=== PATIENT | female | born 1980 | race Caucasian/White ===

== ENCOUNTER 2018-05-30 17:05 | Emergency (ER) | payer OTHER ==
[2018-05-30] MEDS ORDERED: SODIUM CHLORIDE 0.9% 1,000 ML IV STA (17:41)
[2018-05-30] MEDS ORDERED: MECLIZINE 12.5 MG TAB PO STA (17:41)
[2018-05-30] MEDS ORDERED: ACETAMINOPHEN TAB 325 MG TAB PO STA (17:41)
--- NOTE | 2018-05-30 17:43 | ED ---
Fever HPI - General Chief Complaint: Fever Stated Complaint: dizziness/sleepy Time Seen by Provider: 05/30/18 17:19 Source: patient, RN notes reviewed Mode of arrival: ambulatory Limitations: no limitations - History of Present Illness Initial Comments: 37-year-old female presents emergency Department chief complaint of fatigue. Patient states over the last few days she's not felt well. She states she is lightheaded, dizzy. Patient is also nauseous a low-grade temp, slight cough and congestion. She has no upper abdominal pain though she complains of mild suprapubic pain and right flank pain. She does have urinary frequency no dysuria no hematuria. Denies any chest pain, neck pain or any current headache. Patient states that she does have chronic anemia and which this is being investigated. She has had a prior hysterectomy secondary to excessive bleeding. Denies any sick contacts. - Related Data Home Medications Medication Instructions Recorded Confirmed Buprenorphine HCl/Naloxone HCl 1 film SL BID 05/30/18 05/30/18 [Suboxone 8 mg-2 mg Sl Film] Methocarbamol [Robaxin] 750 mg PO QID 05/30/18 05/30/18 busPIRone HCl [Buspar] 20 mg PO TID 05/30/18 05/30/18 Allergies Allergy/AdvReac Type Severity Reaction Status Date / Time sumatriptan [From Imitrex] Allergy Swelling Verified 05/30/18 17:49 Review of Systems ROS Statement: Those systems with pertinent positive or pertinent negative responses have been documented in the HPI. ROS Other: All systems not noted in ROS Statement are negative. Past Medical History Additional Past Medical History / Comment(s): anemia 2 blood transfusions bood disorder hep c History of Any Multi-Drug Resistant Organisms: None Reported Past Surgical History: Section, Hysterectomy, Tonsillectomy Past Psychological History: Anxiety, Bipolar Smoking Status: Current every day smoker Past Alcohol Use History: Rare Past Drug Use History: None Reported, Opiates General Exam Limitations: no limitations General appearance: alert, in no apparent distress Head exam: Present: atraumatic, normocephalic, normal inspection Eye exam: Present: normal appearance, PERRL, EOMI. Absent: scleral icterus, conjunctival injection, periorbital swelling ENT exam: Present: mucous membranes moist, TM's normal bilaterally, normal external ear exam. Absent: normal exam, normal oropharynx (Poor dentition) Neck exam: Present: normal inspection, full ROM. Absent: tenderness, meningismus, lymphadenopathy Respiratory exam: Present: normal lung sounds bilaterally. Absent: respiratory distress, wheezes, rales, rhonchi, stridor Cardiovascular Exam: Present: regular rate, normal rhythm, normal heart sounds. Absent: systolic murmur, diastolic murmur, rubs, gallop, clicks GI/Abdominal exam: Present: soft, tenderness (Mild suprapubic), normal bowel sounds. Absent: distended, guarding, rebound, rigid Back exam: Present: CVA tenderness (R). Absent: CVA tenderness (L) Neurological exam: Present: alert, oriented X3, CN II-XII intact Skin exam: Present: warm, dry, intact, normal color. Absent: rash Course Vital Signs 05/30/18 17:13 Temperature 100.3 F H Pulse Rate 95 Respiratory 22 Rate Blood Pressure 133/85 O2 Sat by Pulse 100 Oximetry Medical Decision Making - Medical Decision Making 37-year-old female presented for fatigue, fever. Patient had nonspecific complaints. She did have extensive workup including chest x-ray, urinalysis, lab work, influenza swab. There is no clinical signs of bacterial infection. Patient's was slightly low at 19 though patient states that she feels improved after IV fluids, fever control. Patient will be discharged with a viral infection and she will follow-up tomorrow for recheck and return for any worsening symptoms. - Lab Data Result diagrams: 05/30/18 18:15 05/30/18 18:15 Lab Results 05/30/18 05/30/18 05/30/18 Range/Units 18:15 18:15 18:15 WBC 7.7 (3.8-10.6) k/uL RBC 5.07 (3.80-5.40) m/uL Hgb 13.7 (11.4-16.0) gm/dL Hct 42.3 (34.0-46.0) % MCV 83.5 (80.0-100.0) fL MCH 27.1 (25.0-35.0) pg MCHC 32.5 (31.0-37.0) g/dL RDW 13.3 (11.5-15.5) % Plt Count 329 (150-450) k/uL Neutrophils % 55 % Lymphocytes % 33 % Monocytes % 3 % Eosinophils % 7 % Basophils % 0 % Neutrophils # 4.3 (1.3-7.7) k/uL Lymphocytes # 2.5 (1.0-4.8) k/uL Monocytes # 0.2 (0-1.0) k/uL Eosinophils # 0.6 (0-0.7) k/uL Basophils # 0.0 (0-0.2) k/uL Sodium 140 (137-145) mmol/L Potassium 4.3 (3.5-5.1) mmol/L Chloride 109 H (98-107) mmol/L Carbon Dioxide 19 L (22-30) mmol/L Anion Gap 12 mmol/L BUN 21 H (7-17) mg/dL Creatinine 0.66 (0.52-1.04) mg/dL Est GFR (CKD-EPI)AfAm >90 (>60 ml/min/1.73 sqM) Est GFR (CKD-EPI)NonAf >90 (>60 ml/min/1.73 sqM) Glucose 103 H (74-99) mg/dL Plasma Lactic Acid Anjel (0.7-2.0) mmol/L Calcium 9.8 (8.4-10.2) mg/dL Total Bilirubin 0.6 (0.2-1.3) mg/dL AST 24 (14-36) U/L ALT 20 (9-52) U/L Alkaline Phosphatase 76 (38-126) U/L Troponin I (0.000-0.034) ng/mL Total Protein 8.3 H (6.3-8.2) g/dL Albumin 4.8 (3.5-5.0) g/dL Urine Color Urine Appearance (Clear) Urine pH (5.0-8.0) Ur Specific [place] (1.001-1.035) Urine Protein (Negative) Urine Glucose (UA) (Negative) Urine Ketones (Negative) Urine Blood (Negative) Urine Nitrite (Negative) Urine Bilirubin (Negative) Urine Urobilinogen (<2.0) mg/dL Ur Leukocyte Esterase (Negative) Heterophile Antibody Negative (Negative) Influenza Type A RNA (Not Detectd) Influenza Type B (PCR) (Not Detectd) 05/30/18 05/30/18 05/30/18 Range/Units 18:15 18:15 18:15 WBC (3.8-10.6) k/uL RBC (3.80-5.40) m/uL Hgb (11.4-16.0) gm/dL Hct (34.0-46.0) % MCV (80.0-100.0) fL MCH (25.0-35.0) pg MCHC (31.0-37.0) g/dL RDW (11.5-15.5) % Plt Count (150-450) k/uL Neutrophils % % Lymphocytes % % Monocytes % % Eosinophils % % Basophils % % Neutrophils # (1.3-7.7) k/uL Lymphocytes # (1.0-4.8) k/uL Monocytes # (0-1.0) k/uL Eosinophils # (0-0.7) k/uL Basophils # (0-0.2) k/uL Sodium (137-145) mmol/L Potassium (3.5-5.1) mmol/L Chloride (98-107) mmol/L Carbon Dioxide (22-30) mmol/L Anion Gap mmol/L BUN (7-17) mg/dL Creatinine (0.52-1.04) mg/dL Est GFR (CKD-EPI)AfAm (>60 ml/min/1.73 sqM) Est GFR (CKD-EPI)NonAf (>60 ml/min/1.73 sqM) Glucose (74-99) mg/dL Plasma Lactic Acid Anjel 1.3 (0.7-2.0) mmol/L Calcium (8.4-10.2) mg/dL Total Bilirubin (0.2-1.3) mg/dL AST (14-36) U/L ALT (9-52) U/L Alkaline Phosphatase (38-126) U/L Troponin I <0.012 (0.000-0.034) ng/mL Total Protein (6.3-8.2) g/dL Albumin (3.5-5.0) g/dL Urine Color Urine Appearance (Clear) Urine pH (5.0-8.0) Ur Specific [place] (1.001-1.035) Urine Protein (Negative) Urine Glucose (UA) (Negative) Urine Ketones (Negative) Urine Blood (Negative) Urine Nitrite (Negative) Urine Bilirubin (Negative) Urine Urobilinogen (<2.0) mg/dL Ur Leukocyte Esterase (Negative) Heterophile Antibody (Negative) Influenza Type A RNA Not Detected (Not Detectd) Influenza Type B (PCR) Not Detected (Not Detectd) 05/30/18 Range/Units 18:15 WBC (3.8-10.6) k/uL RBC (3.80-5.40) m/uL Hgb (11.4-16.0) gm/dL Hct (34.0-46.0) % MCV (80.0-100.0) fL MCH (25.0-35.0) pg MCHC (31.0-37.0) g/dL RDW (11.5-15.5) % Plt Count (150-450) k/uL Neutrophils % % Lymphocytes % % Monocytes % % Eosinophils % % Basophils % % Neutrophils # (1.3-7.7) k/uL Lymphocytes # (1.0-4.8) k/uL Monocytes # (0-1.0) k/uL Eosinophils # (0-0.7) k/uL Basophils # (0-0.2) k/uL Sodium (137-145) mmol/L Potassium (3.5-5.1) mmol/L Chloride (98-107) mmol/L Carbon Dioxide (22-30) mmol/L Anion Gap mmol/L BUN (7-17) mg/dL Creatinine (0.52-1.04) mg/dL Est GFR (CKD-EPI)AfAm (>60 ml/min/1.73 sqM) Est GFR (CKD-EPI)NonAf (>60 ml/min/1.73 sqM) Glucose (74-99) mg/dL Plasma Lactic Acid Anjel (0.7-2.0) mmol/L Calcium (8.4-10.2) mg/dL Total Bilirubin (0.2-1.3) mg/dL AST (14-36) U/L ALT (9-52) U/L Alkaline Phosphatase (38-126) U/L Troponin I (0.000-0.034) ng/mL Total Protein (6.3-8.2) g/dL Albumin (3.5-5.0) g/dL Urine Color Yellow Urine Appearance Clear (Clear) Urine pH 5.5 (5.0-8.0) Ur Specific [place] 1.033 (1.001-1.035) Urine Protein Negative (Negative) Urine Glucose (UA) Negative (Negative) Urine Ketones Negative (Negative) Urine Blood Negative (Negative) Urine Nitrite Negative (Negative) Urine Bilirubin Negative (Negative) Urine Urobilinogen <2.0 (<2.0) mg/dL Ur Leukocyte Esterase Negative (Negative) Heterophile Antibody (Negative) Influenza Type A RNA (Not Detectd) Influenza Type B (PCR) (Not Detectd) 05/30/18 19:39 EKG performed at 18:20 normal sinus rhythm with rate of 76 ME 148 QRS 80 QT/QTC 384/432 Disposition Clinical Impression: Viral syndrome Disposition: HOME SELF-CARE Condition: Stable Instructions: Fever in Adults (ED), Viral Syndrome (ED) Additional Instructions: Please return to the Emergency Department if symptoms worsen or any other concerns. Is patient prescribed a controlled substance at d/c from ED?: No Referrals: Chris Tompkins MD [Primary Care Provider] - 1-2 days Time of Disposition: 19:41
[2018-05-30 18:36] LABS: Basophils % (A) 0 %; Eosinophils # (A) 0.6 k/uL (0-0.7); Eosinophils % (A) 7 %; HCT 42.3 % (34.0-46.0); HGB 13.7 gm/dL (11.4-16.0); Lymphocytes # (A) 2.5 k/uL (1.0-4.8); Lymphocytes % (A) 33 %; MCH 27.1 pg (25.0-35.0); MCHC 32.5 g/dL (31.0-37.0); MCV 83.5 fL (80.0-100.0); Mean Platelet Volume 7.7; Monocytes # (A) 0.2 k/uL (0-1.0); Monocytes % (A) 3 %; Neutrophils # (A) 4.3 k/uL (1.3-7.7); Neutrophils % (A) 55 %; Platelet Count 329 k/uL (150-450); RBC 5.07 m/uL (3.80-5.40); RDW 13.3 % (11.5-15.5); WBC 7.7 k/uL (3.8-10.6)
[2018-05-30 18:39] LABS: Appearance,Urine Clear (Clear); Bilirubin,Urine Negative (Negative); Blood,Urine Negative (Negative); Color,Urine Yellow; Glucose,Urine (UA) Negative (Negative); Ketones,Urine Negative (Negative); Leukocyte Esterase,Urine Negative (Negative); Nitrite,Urine Negative (Negative); PH, Urine 5.5 (5.0-8.0); Protein,Urine Negative (Negative); Specific Gravity,Urine 1.033 (1.001-1.035); Urobilinogen,Urine <2.0 mg/dL (<2.0)
[2018-05-30 18:44] LABS: ALT 20 U/L (9-52); AST 24 U/L (14-36); Albumin 4.8 g/dL (3.5-5.0); Alkaline Phosphatase 76 U/L (38-126); Anion Gap 12 mmol/L; Blood Urea Nitrogen 21 mg/dL (7-17); Calcium 9.8 mg/dL (8.4-10.2); Carbon Dioxide 19 mmol/L (22-30); Chloride 109 mmol/L (98-107); Glucose 103 mg/dL (74-99); Potassium 4.3 mmol/L (3.5-5.1); Sodium 140 mmol/L (137-145); Total Bilirubin 0.6 mg/dL (0.2-1.3); Total Protein 8.3 g/dL (6.3-8.2)
--- NOTE | 2018-05-30 19:38 | XR ---
EXAMINATION: XR chest 2V DATE AND TIME: 05/30/2018 6:37 PM CLINICAL INDICATION: fever TECHNIQUE: PA and lateral COMPARISON: None. FINDINGS: The lungs are clear. The pleural spaces are negative. The cardiac silhouette is not enlarged. The remainder of the mediastinal silhouette is unremarkable. The skeletal structures and soft tissues are negative for acute findings. IMPRESSION: NO ACUTE PROCESS.
[2018-05-30 20:03] VITALS: BP 112/77; PULSE 69; RESP 13; TEMP 98.6
== END 2018-05-30 20:03 | disposition home or self-care (01) ==
LOC: EC 17:05
DX: B34.9 Viral infection, unspecified (principal); D64.9 Anemia, unspecified; F31.9 Bipolar disorder, unspecified; F41.9 Anxiety disorder, unspecified; F17.200 Nicotine dependence, unspecified, uncomplicated; Z79.899 Other long term (current) drug therapy; Z88.8 Allergy status to other drugs, medicaments and biological substances
CPT/HCPCS: 36415; 71046; 80053; 81003; 83605; 84484; 85025; 86308; 87040; 87502; 93005; 96360; 99284

== ENCOUNTER 2018-08-18 00:04 | Emergency (ER) | payer OTHER ==
[2018-08-18 00:09] VITALS: BP 149/89; PULSE 77; RESP 18; TEMP 98.5
--- NOTE | 2018-08-18 00:23 | ED ---
Upper Extremity HPI - General Chief Complaint: Extremity Injury, Upper Stated Complaint: Shoulder Pain Time Seen by Provider: 08/18/18 00:11 Source: patient, RN notes reviewed Mode of arrival: ambulatory Limitations: no limitations - History of Present Illness Initial Comments: 37-year-old female presents emergency Department chief and right shoulder pain. Patient states that she recently had a new bed and states that she was not used to it. Patient states she rolled out of bed yesterday. Patient states that she has pain along the lateral to anterior portion her right shoulder. She has pain worse with movement better at rest. She states her some bruising. Denies any head injury no loss conscious. Patient states that she is right- hand-dominant said no prior issues with her shoulder. - Related Data Home Medications Medication Instructions Recorded Confirmed Buprenorphine HCl/Naloxone HCl 1 film SL BID 05/30/18 05/30/18 [Suboxone 8 mg-2 mg Sl Film] Methocarbamol [Robaxin] 750 mg PO QID 05/30/18 05/30/18 busPIRone HCl [Buspar] 20 mg PO TID 05/30/18 05/30/18 Previous Rx's Medication Instructions Recorded Ibuprofen [Motrin] 600 mg PO Q8HR PRN #30 tab 08/18/18 Allergies Allergy/AdvReac Type Severity Reaction Status Date / Time sumatriptan [From Imitrex] Allergy Swelling Verified 08/18/18 00:10 Review of Systems ROS Statement: Those systems with pertinent positive or pertinent negative responses have been documented in the HPI. ROS Other: All systems not noted in ROS Statement are negative. Past Medical History Additional Past Medical History / Comment(s): anemia 2 blood transfusions bood disorder hep c History of Any Multi-Drug Resistant Organisms: None Reported Past Surgical History: Section, Hysterectomy, Tonsillectomy Past Psychological History: Anxiety, Bipolar Smoking Status: Current every day smoker Past Alcohol Use History: Rare Past Drug Use History: None Reported, Opiates General Exam Limitations: no limitations General appearance: alert, in no apparent distress Head exam: Present: atraumatic, normocephalic, normal inspection Neck exam: Present: normal inspection, full ROM. Absent: tenderness, meningismus, lymphadenopathy Respiratory exam: Present: normal lung sounds bilaterally. Absent: respiratory distress, wheezes, rales, rhonchi, stridor, chest wall tenderness Cardiovascular Exam: Present: regular rate, normal rhythm, normal heart sounds. Absent: systolic murmur, diastolic murmur, rubs, gallop, clicks Extremities exam: Present: other (Right shoulder pain with range of motion, neurovascular intact there is no obvious deformity no clavicle tenderness, there is small area of ecchymosis noted on the) Neurological exam: Present: alert, oriented X3, CN II-XII intact, reflexes normal. Absent: motor sensory deficit Skin exam: Present: warm, dry, intact, normal color. Absent: rash Course Vital Signs 08/18/18 00:07 Temperature 98.5 F Pulse Rate 77 Respiratory 18 Rate Blood Pressure 149/89 O2 Sat by Pulse 96 Oximetry Medical Decision Making - Medical Decision Making 37-year-old female presented for right shoulder pain. X-rays obtained no acute fracture. Patient has contusion of the right shoulder we started on ibuprofen. Return parameters were discussed. Disposition Clinical Impression: Contusion of right shoulder Disposition: HOME SELF-CARE Condition: Stable Instructions (If sedation given, give patient instructions): Contusion in Adults (ED) Additional Instructions: Please return to the Emergency Department if symptoms worsen or any other concerns. Prescriptions: Ibuprofen [Motrin] 600 mg PO Q8HR PRN #30 tab PRN Reason: Pain Is patient prescribed a controlled substance at d/c from ED?: No Referrals: None,Stated [REFERRING] - 1-2 days Time of Disposition: 00:41
--- NOTE | 2018-08-18 00:37 | XR ---
EXAM: XR Right Shoulder Complete, 2 or More Views CLINICAL HISTORY: Pain TECHNIQUE: Two or more views of the right shoulder. COMPARISON: No relevant prior studies available. FINDINGS: Bones/joints: Unremarkable. No acute fracture. No dislocation. Soft tissues: Unremarkable. IMPRESSION: Normal right shoulder x-rays.
== END 2018-08-18 00:49 | disposition home or self-care (01) ==
LOC: EC 00:04
DX: S40.011A Contusion of right shoulder, initial encounter (principal); F31.9 Bipolar disorder, unspecified; F41.9 Anxiety disorder, unspecified; F17.200 Nicotine dependence, unspecified, uncomplicated; Z86.19 Personal history of other infectious and parasitic diseases; Z79.899 Other long term (current) drug therapy; Z88.8 Allergy status to other drugs, medicaments and biological substances; W06.XXXA Fall from bed, initial encounter
CPT/HCPCS: 99283

== ENCOUNTER 2019-05-30 20:47 | Emergency (ER) | payer OTHER ==
[2019-05-30 20:55] VITALS: PULSE 61; TEMP 97.9
[2019-05-30] MEDS ORDERED: SODIUM CHLORIDE 0.9% 1,000 ML IV ONE (21:09)
--- NOTE | 2019-05-30 21:49 | ED ---
General Adult HPI - General Chief complaint: Urogenital Stated complaint: vaginal infection Time Seen by Provider: 05/30/19 20:58 Source: family, RN notes reviewed Mode of arrival: ambulatory Limitations: no limitations - History of Present Illness Initial comments: 38-year-old female presents to the emergency department for a chief clinic dysuria. Patient states she has had urinary urgency for the past week. States she has dysuria when urinating. Patient's stated complaint was vaginal related however patient denies any of this stating it is all urinary. Patient states she now has some upper back pain that is worse on the left side. She denies fevers or chills. Denies nausea vomiting. Patient has no other complaints at this time including shortness of breath, chest pain, abdominal pain, nausea or vomiting, headache, or visual changes. - Related Data Home Medications Medication Instructions Recorded Confirmed Buprenorphine HCl/Naloxone HCl 1 film SL BID 05/30/18 05/30/18 [Suboxone 8 mg-2 mg Sl Film] Methocarbamol [Robaxin] 750 mg PO QID 05/30/18 05/30/18 busPIRone HCl [Buspar] 20 mg PO TID 05/30/18 05/30/18 Previous Rx's Medication Instructions Recorded Ibuprofen [Motrin] 600 mg PO Q8HR PRN #30 tab 08/18/18 Cephalexin [Keflex] 500 mg PO Q6HR 14 Days #56 cap 05/30/19 Allergies Allergy/AdvReac Type Severity Reaction Status Date / Time sumatriptan [From Imitrex] Allergy Swelling Verified 05/30/19 20:53 Review of Systems ROS Statement: Those systems with pertinent positive or pertinent negative responses have been documented in the HPI. ROS Other: All systems not noted in ROS Statement are negative. Past Medical History Additional Past Medical History / Comment(s): anemia 2 blood transfusions b ood disorder hep c History of Any Multi-Drug Resistant Organisms: None Reported Past Surgical History: Section, Hysterectomy, Tonsillectomy Past Psychological History: Anxiety, Bipolar Smoking Status: Current every day smoker Past Alcohol Use History: Rare Past Drug Use History: None Reported, Opiates General Exam Limitations: no limitations General appearance: alert, in no apparent distress Head exam: Present: atraumatic, normocephalic, normal inspection Eye exam: Present: normal appearance, PERRL, EOMI. Absent: scleral icterus, conjunctival injection, periorbital swelling ENT exam: Present: normal exam, mucous membranes moist Neck exam: Present: normal inspection, full ROM. Absent: tenderness, meningismus, lymphadenopathy Respiratory exam: Present: normal lung sounds bilaterally. Absent: respiratory distress, wheezes, rales, rhonchi, stridor Cardiovascular Exam: Present: regular rate, normal rhythm, normal heart sounds. Absent: systolic murmur, diastolic murmur, rubs, gallop, clicks GI/Abdominal exam: Present: soft, normal bowel sounds. Absent: distended, tenderness, guarding, rebound, rigid Back exam: Present: CVA tenderness (L). Absent: CVA tenderness (R) Neurological exam: Present: alert Psychiatric exam: Present: normal affect, normal mood Course Vital Signs 05/30/19 05/30/19 20:53 22:51 Temperature 97.9 F Pulse Rate 61 61 Respiratory 16 18 Rate Blood Pressure 145/94 119/80 O2 Sat by Pulse 98 100 Oximetry Medical Decision Making - Medical Decision Making Vitals are stable. Patient is afebrile. CBC and CMP on arrival. Patient does have evidence of dehydration and was given 2 L of IV fluids. Urinalysis does show 145 white blood cells. HCG was negative. CT abdomen and pelvis was obtained to rule out a stone. This shows no evidence of renal obstruction. T here is a non-obstrucing tiny right renal calculus but this is unlikely to be causing patient's. She likely has a pyelonephritis and was given 2 g of IV Rocephin. There is also a soft tissue density at the floor of the pelvis that could relate to vaginal or uterine prolapse. Patient has a history of hysterectomy. I do an external exam and I do not see any protruding vaginal prolapse. She will follow-up with her primary care provider for this for possible [employer] referral. Patient to [facility] outpatient for pyelonephritis. She will follow up on culture results. She'll return should she have any worsening symptoms. - Lab Data Result diagrams: 05/30/19 21:25 05/30/19 21:25 Lab Results 05/30/19 05/30/19 05/30/19 Range/Units 21:25 21:25 21:25 WBC 9.9 (3.8-10.6) k/uL RBC 4.61 (3.80-5.40) m/uL Hgb 13.1 (11.4-16.0) gm/dL Hct 39.6 (34.0-46.0) % MCV 86.0 (80.0-100.0) fL MCH 28.5 (25.0-35.0) pg MCHC 33.2 (31.0-37.0) g/dL RDW 13.2 (11.5-15.5) % Plt Count 219 (150-450) k/uL Neutrophils % 53 % Lymphocytes % 38 % Monocytes % 4 % Eosinophils % 4 % Basophils % 0 % Neutrophils # 5.2 (1.3-7.7) k/uL Lymphocytes # 3.8 (1.0-4.8) k/uL Monocytes # 0.4 (0-1.0) k/uL Eosinophils # 0.4 (0-0.7) k/uL Basophils # 0.0 (0-0.2) k/uL Sodium 142 (137-145) mmol/L Potassium 4.8 (3.5-5.1) mmol/L Chloride 115 H (98-107) mmol/L Carbon Dioxide 16 L (22-30) mmol/L Anion Gap 11 mmol/L BUN 30 H (7-17) mg/dL Creatinine 0.70 (0.52-1.04) mg/dL Est GFR (CKD-EPI)AfAm >90 (>60 ml/min/1.73 sqM) Est GFR (CKD-EPI)NonAf >90 (>60 ml/min/1.73 sqM) Glucose 83 (74-99) mg/dL Calcium 9.3 (8.4-10.2) mg/dL Total Bilirubin 0.3 (0.2-1.3) mg/dL AST 21 (14-36) U/L ALT 13 (9-52) U/L Alkaline Phosphatase 58 (38-126) U/L Total Protein 7.4 (6.3-8.2) g/dL Albumin 4.4 (3.5-5.0) g/dL Urine Color Urine Appearance (Clear) Urine pH (5.0-8.0) Ur Specific [place] (1.001-1.035) Urine Protein (Negative) Urine Glucose (UA) (Negative) Urine Ketones (Negative) Urine Blood (Negative) Urine Nitrite (Negative) Urine Bilirubin (Negative) Urine Urobilinogen (<2.0) mg/dL Ur Leukocyte Esterase (Negative) Urine RBC (0-5) /hpf Urine WBC (0-5) /hpf Ur Squamous Epith Cells (0-4) /hpf Urine Bacteria (None) /hpf Hyaline Casts (0-2) /lpf Urine HCG, Qual Not Detected (Not Detectd) 05/30/19 Range/Units 21:25 WBC (3.8-10.6) k/uL RBC (3.80-5.40) m/uL Hgb (11.4-16.0) gm/dL Hct (34.0-46.0) % MCV (80.0-100.0) fL MCH (25.0-35.0) pg MCHC (31.0-37.0) g/dL RDW (11.5-15.5) % Plt Count (150-450) k/uL Neutrophils % % Lymphocytes % % Monocytes % % Eosinophils % % Basophils % % Neutrophils # (1.3-7.7) k/uL Lymphocytes # (1.0-4.8) k/uL Monocytes # (0-1.0) k/uL Eosinophils # (0-0.7) k/uL Basophils # (0-0.2) k/uL Sodium (137-145) mmol/L Potassium (3.5-5.1) mmol/L Chloride (98-107) mmol/L Carbon Dioxide (22-30) mmol/L Anion Gap mmol/L BUN (7-17) mg/dL Creatinine (0.52-1.04) mg/dL Est GFR (CKD-EPI)AfAm (>60 ml/min/1.73 sqM) Est GFR (CKD-EPI)NonAf (>60 ml/min/1.73 sqM) Glucose (74-99) mg/dL Calcium (8.4-10.2) mg/dL Total Bilirubin (0.2-1.3) mg/dL AST (14-36) U/L ALT (9-52) U/L Alkaline Phosphatase (38-126) U/L Total Protein (6.3-8.2) g/dL Albumin (3.5-5.0) g/dL Urine Color Light Yellow Urine Appearance Cloudy H (Clear) Urine pH 6.0 (5.0-8.0) Ur Specific [place] 1.024 (1.001-1.035) Urine Protein Trace H (Negative) Urine Glucose (UA) Negative (Negative) Urine Ketones Negative (Negative) Urine Blood Trace H (Negative) Urine Nitrite Negative (Negative) Urine Bilirubin Negative (Negative) Urine Urobilinogen <2.0 (<2.0) mg/dL Ur Leukocyte Esterase Large H (Negative) Urine RBC 18 H (0-5) /hpf Urine WBC 145 H (0-5) /hpf Ur Squamous Epith Cells 2 (0-4) /hpf Urine Bacteria Occasional H (None) /hpf Hyaline Casts 1 (0-2) /lpf Urine HCG, Qual (Not Detectd) Disposition Clinical Impression: Pyelonephritis Disposition: HOME SELF-CARE Condition: Good Instructions (If sedation given, give patient instructions): Kidney Infection (ED) Additional Instructions: Please take antibiotic as directed starting tomorrow. Please follow-up with primary care in 1-2 days. Follow up on culture results in the next 1-2 days as well. Return to the emergency department if you have any worsening symptoms such as fevers. Prescriptions: Cephalexin [Keflex] 500 mg PO Q6HR 14 Days #56 cap Is patient prescribed a controlled substance at d/c from ED?: No Referrals: Chris Tompkins MD [Primary Care Provider] - 1-2 days Time of Disposition: 23:12
[2019-05-30 21:53] LABS: Basophils % (A) 0 %; Eosinophils # (A) 0.4 k/uL (0-0.7); Eosinophils % (A) 4 %; HCT 39.6 % (34.0-46.0); HGB 13.1 gm/dL (11.4-16.0); Lymphocytes # (A) 3.8 k/uL (1.0-4.8); Lymphocytes % (A) 38 %; MCH 28.5 pg (25.0-35.0); MCHC 33.2 g/dL (31.0-37.0); Mean Platelet Volume 8.5; Monocytes # (A) 0.4 k/uL (0-1.0); Monocytes % (A) 4 %; Neutrophils # (A) 5.2 k/uL (1.3-7.7); Neutrophils % (A) 53 %; Platelet Count 219 k/uL (150-450); RBC 4.61 m/uL (3.80-5.40); RDW 13.2 % (11.5-15.5); WBC 9.9 k/uL (3.8-10.6)
[2019-05-30 22:02] LABS: ALT 13 U/L (9-52); AST 21 U/L (14-36); African American GFR (CKD) >90 (>60 ml/min/1.73 sqM); Albumin 4.4 g/dL (3.5-5.0); Alkaline Phosphatase 58 U/L (38-126); Anion Gap 11 mmol/L; Blood Urea Nitrogen 30 mg/dL (7-17); Calcium 9.3 mg/dL (8.4-10.2); Carbon Dioxide 16 mmol/L (22-30); Chloride 115 mmol/L (98-107); Glucose 83 mg/dL (74-99); Non-African American GFR(CKD) >90 (>60 ml/min/1.73 sqM); Potassium 4.8 mmol/L (3.5-5.1); Sodium 142 mmol/L (137-145); Total Bilirubin 0.3 mg/dL (0.2-1.3); Total Protein 7.4 g/dL (6.3-8.2)
[2019-05-30] MEDS ORDERED: KETOROLAC 30 MG/ML 1 ML VIAL IVP STA (22:04)
[2019-05-30 22:07] LABS: Appearance,Urine Cloudy (Clear); Bacteria,Urine Occasional /hpf; Bilirubin,Urine Negative (Negative); Blood,Urine Trace (Negative); Color,Urine Light Yellow; Glucose,Urine (UA) Negative (Negative); Hyaline Casts,Urine 1 /lpf (0-2); Ketones,Urine Negative (Negative); Leukocyte Esterase,Urine Large (Negative); Nitrite,Urine Negative (Negative); Protein,Urine Trace (Negative); RBC,Urine 18 /hpf (0-5); Specific Gravity,Urine 1.024 (1.001-1.035); Squamous Epithelial Cell,Urine 2 /hpf (0-4); Urobilinogen,Urine <2.0 mg/dL (<2.0)
[2019-05-30] MEDS ORDERED: cefTRIAXone IN SWFI 1,000 MG/10 ML SYRINGE IVP STA (22:30)
[2019-05-30] MEDS ORDERED: SODIUM CHLORIDE 0.9% 1,000 ML IV STA (22:30)
--- NOTE | 2019-05-30 22:39 | CT ---
EXAMINATION TYPE: CT abdomen pelvis wo con DATE OF EXAM: 05/30/2019 COMPARISON: None HISTORY: Bilateral flank pain and painful urination. CT DLP: 584.5 mGycm Automated exposure control for dose reduction was used. TECHNIQUE: Helical acquisition of images was performed from the lung bases through the pelvis. FINDINGS: Lung bases are clear. There is no pleural effusion. Heart size is normal. There is no pericardial eff usion. Liver spleen pancreas gallbladder appear normal. Bile ducts are not dilated. Stomach appears normal. There is no adrenal mass. Kidneys have normal size and contour. There is no hydronephrosis. There is 1 mm calculus lower pole right kidney. There is no retroperitoneal adenopathy. Ureters are not dilate d. Bladder distends smoothly. There is no inguinal hernia. There is small amount of free fluid in the pelvis on the left side. There is no ascites. There is no free air. There is no mesenteric edema. There is no sign of a bowel obstruction. Appendix appears normal. Appendix is lateral to the cecum. There is increased soft tissue density at the floor the pelvis inferior to the urinary bladder. There is possible hysterectomy that should be correlated with the history. This could be vaginal prolapse. Lumbar vertebra have normal alignment. There is some narrowing of L4-5 disc space. There is no compre ssion fracture. The bony pelvis is intact. IMPRESSION: NORMAL APPENDIX. NO EVIDENCE OF RENAL OBSTRUCTION. NONOBSTRUCTING TINY RIGHT RENAL CALCULUS. INCREASED SOFT TISSUE DENSITY AT THE FLOOR THE PELVIS COULD RELATE TO VAGINAL OR UTERINE PROLAPSE AND SHOULD BE CORRELATED WITH THE PHYSICAL EXAM AND SURGICAL HISTORY. Tiny amount of free fluid in the p martín.
[2019-05-30 22:52] VITALS: BP 119/80; RESP 18
[2019-05-31 14:44] LABS: C. trachomatis,PCR Negative (Neg,Equiv); Chlamydia trachomatis Source Urine
[2019-06-01 09:39] LABS: N. gonorrhoeae,PCR Negative (Neg,Equiv); Neisseria Source Urine
== END 2019-05-30 23:30 | disposition home or self-care (01) ==
LOC: EC 20:47
DX: N12 Tubulo-interstitial nephritis, not specified as acute or chronic (principal); E86.0 Dehydration; N20.0 Calculus of kidney; R19.09 Other intra-abdominal and pelvic swelling, mass and lump; M54.6 Pain in thoracic spine; F31.9 Bipolar disorder, unspecified; F41.9 Anxiety disorder, unspecified; F17.200 Nicotine dependence, unspecified, uncomplicated; Z88.8 Allergy status to other drugs, medicaments and biological substances; Z79.899 Other long term (current) drug therapy; Z90.710 Acquired absence of both cervix and uterus; Z86.2 Personal history of diseases of the blood and blood-forming organs and certain disorders involving the immune mechanism
CPT/HCPCS: 36415; 80053; 85025; 81001; 81025; 87491; 87591; 87086; 74176; 99284; 96374; 96375; 96361 ×2; J0696; J1885; 87077; 87186

== ENCOUNTER 2020-05-05 18:04 | Observation (INO) | payer OTHER ==
[2020-05-05] MEDS ORDERED: ONDANSETRON 4 MG/2 ML VIAL IVP STA (18:20)
[2020-05-05] MEDS ORDERED: SODIUM CHLORIDE 0.9% 1,000 ML IV STA ×3 (18:20→19:27)
[2020-05-05] MEDS ORDERED: LORazepam 2 MG/ML INJ IV STA (18:24)
--- NOTE | 2020-05-05 18:24 | ED ---
Dizziness HPI - General Chief Complaint: Dizziness Stated Complaint: anxiety Time Seen by Provider: 05/05/20 18:07 Source: patient, RN notes reviewed, old records reviewed Mode of arrival: EMS Limitations: no limitations - History of Present Illness Initial Comments: This 39-year-old female with a near syncopal event, patient states her heart rate feels fast feels like his remained past. Denies drug alcohol abuse. No recent travel history or sick contacts occasional chest pain with dizziness.also patient states overall she does not feel well MD Complaint: dizziness, lightheadedness, near syncope -: days(s) Timing: gradual onset, waxing/waning Description: lightheadedness History of Same: Yes History of Trauma: No Severity: moderate Improves With: remaining still Worsens With: movement Associated Symptoms: cough, shortness of breath, weakness - Related Data Home Medications Medication Instructions Recorded Confirmed Amitriptyline HCl 25 mg PO HS 05/05/20 05/08/20 Buprenorphine HCl/Naloxone HCl 1 film SL DAILY 05/05/20 05/08/20 [Suboxone 12 mg-3 mg Sl Film] DULoxetine HCL [Cymbalta] 30 mg PO HS 05/05/20 05/08/20 Previous Rx's Medication Instructions Recorded ALPRAZolam [Xanax] 0.5 mg PO DAILY PRN #6 tablet 05/08/20 Allergies Allergy/AdvReac Type Severity Reaction Status Date / Time sumatriptan [From Imitrex] Allergy Swelling Verified 05/08/20 19:32 Review of Systems ROS Statement: Those systems with pertinent positive or pertinent negative responses have been documented in the HPI. ROS Other: All systems not noted in ROS Statement are negative. Past Medical History Additional Past Medical History / Comment(s): anemia 2 blood transfusions bood disorder hep c History of Any Multi-Drug Resistant Organisms: None Reported Past Surgical History: Section, Hysterectomy, Tonsillectomy Past Psychological History: Anxiety, Bipolar Smoking Status: Vaper Past Alcohol Use History: None Reported, Rare Past Drug Use History: None Reported, Opiates General Exam Limitations: no limitations General appearance: alert, in no apparent distress, anxious Head exam: Present: atraumatic, normocephalic, normal inspection Eye exam: Present: normal appearance, PERRL, EOMI. Absent: scleral icterus, conjunctival injection, periorbital swelling ENT exam: Present: normal exam, mucous membranes moist Neck exam: Present: normal inspection. Absent: tenderness, meningismus, lymphadenopathy Respiratory exam: Present: normal lung sounds bilaterally. Absent: respiratory distress, wheezes, rales, rhonchi, stridor Cardiovascular Exam: Present: normal rhythm, tachycardia, normal heart sounds. Absent: systolic murmur, diastolic murmur, rubs, gallop, clicks GI/Abdominal exam: Present: soft, normal bowel sounds. Absent: distended, tenderness, guarding, rebound, rigid Extremities exam: Present: normal inspection, full ROM, normal capillary refill. Absent: tenderness, pedal edema, joint swelling, calf tenderness Back exam: Present: normal inspection Neurological exam: Present: alert, oriented X3, CN II-XII intact Psychiatric exam: Present: normal affect, normal mood Skin exam: Present: warm, dry, intact, normal color. Absent: rash Course Vital Signs 05/05/20 05/05/20 05/05/20 18:06 19:04 20:44 Temperature 98.2 F 97.8 F Pulse Rate 118 H 91 Pulse Rate [ 66 Pulse Oximetery ] Respiratory 18 16 15 Rate Blood Pressure 166/88 152/108 Blood Pressure 129/85 [Right Arm] O2 Sat by Pulse 98 100 97 Oximetry 05/05/20 05/05/20 20:50 20:58 Temperature 98.8 F Pulse Rate 77 Pulse Rate [ Pulse Oximetery ] Respiratory 12 Rate Blood Pressure 119/82 Blood Pressure [Right Arm] O2 Sat by Pulse 97 Oximetry - Reevaluation(s) Reevaluation #1: medical records reviewed Patient still feels dizzy and lightheaded with tachycardia heart rate still remains elevated 140 times Patient informed results and questions answered EKG Findings - EKG Comments: EKG Findings:: EKG is sinus tachycardia 135 TX 122 QRS 80 QTc 471 Medical Decision Making - Medical Decision Making 39 female feels physical heart is racing, patient is syncopal event, no significant reason found here in the ER CT negative for PE, patient be admitted for cardiology to evaluate - Lab Data Result diagrams: 05/05/20 18:44 05/06/20 05:31 Lab Results 05/05/20 05/05/20 05/05/20 Range/Units 18:44 18:44 18:44 WBC 7.3 (3.8-10.6) k/uL RBC 4.81 (3.80-5.40) m/uL Hgb 13.5 (11.4-16.0) gm/dL Hct 40.5 (34.0-46.0) % MCV 84.4 (80.0-100.0) fL MCH 28.1 (25.0-35.0) pg MCHC 33.4 (31.0-37.0) g/dL RDW 12.4 (11.5-15.5) % Plt Count 316 (150-450) k/uL Neutrophils % 64 % Lymphocytes % 27 % Monocytes % 6 % Eosinophils % 2 % Basophils % 1 % Neutrophils # 4.6 (1.3-7.7) k/uL Lymphocytes # 2.0 (1.0-4.8) k/uL Monocytes # 0.4 (0-1.0) k/uL Eosinophils # 0.1 (0-0.7) k/uL Basophils # 0.0 (0-0.2) k/uL Sodium 137 (137-145) mmol/L Potassium 2.9 L (3.5-5.1) mmol/L Chloride 107 (98-107) mmol/L Carbon Dioxide 15 L (22-30) mmol/L Anion Gap 15 mmol/L BUN 15 (7-17) mg/dL Creatinine 0.78 (0.52-1.04) mg/dL Est GFR (CKD-EPI)AfAm >90 (>60 ml/min/1.73 sqM) Est GFR (CKD-EPI)NonAf >90 (>60 ml/min/1.73 sqM) Glucose 146 H (74-99) mg/dL Lactic Ac Sepsis Rflx Plasma Lactic Acid Anjel 3.3 H* (0.7-2.0) mmol/L Calcium 9.9 (8.4-10.2) mg/dL Phosphorus 1.3 L (2.5-4.5) mg/dL Magnesium 1.6 (1.6-2.3) mg/dL Total Bilirubin 0.6 (0.2-1.3) mg/dL AST 22 (14-36) U/L ALT 12 (4-34) U/L Alkaline Phosphatase 57 (38-126) U/L Troponin I (0.000-0.034) ng/mL Total Protein 7.6 (6.3-8.2) g/dL Albumin 4.7 (3.5-5.0) g/dL Urine Color Urine Appearance (Clear) Urine pH (5.0-8.0) Ur Specific Hack[place] (1.001-1.035) Urine Protein (Negative) Urine Glucose (UA) (Negative) Urine Ketones (Negative) Urine Blood (Negative) Urine Nitrite (Negative) Urine Bilirubin (Negative) Urine Urobilinogen (<2.0) mg/dL Ur Leukocyte Esterase (Negative) 05/05/20 05/05/20 05/05/20 Range/Units 18:44 19:20 20:00 WBC (3.8-10.6) k/uL RBC (3.80-5.40) m/uL Hgb (11.4-16.0) gm/dL Hct (34.0-46.0) % MCV (80.0-100.0) fL MCH (25.0-35.0) pg MCHC (31.0-37.0) g/dL RDW (11.5-15.5) % Plt Count (150-450) k/uL Neutrophils % % Lymphocytes % % Monocytes % % Eosinophils % % Basophils % % Neutrophils # (1.3-7.7) k/uL Lymphocytes # (1.0-4.8) k/uL Monocytes # (0-1.0) k/uL Eosinophils # (0-0.7) k/uL Basophils # (0-0.2) k/uL Sodium (137-145) mmol/L Potassium (3.5-5.1) mmol/L Chloride (98-107) mmol/L Carbon Dioxide (22-30) mmol/L Anion Gap mmol/L BUN (7-17) mg/dL Creatinine (0.52-1.04) mg/dL Est GFR (CKD-EPI)AfAm (>60 ml/min/1.73 sqM) Est GFR (CKD-EPI)NonAf (>60 ml/min/1.73 sqM) Glucose (74-99) mg/dL Lactic Ac Sepsis Rflx Y Plasma Lactic Acid Anjel (0.7-2.0) mmol/L Calcium (8.4-10.2) mg/dL Phosphorus (2.5-4.5) mg/dL Magnesium (1.6-2.3) mg/dL Total Bilirubin (0.2-1.3) mg/dL AST (14-36) U/L ALT (4-34) U/L Alkaline Phosphatase (38-126) U/L Troponin I <0.012 (0.000-0.034) ng/mL Total Protein (6.3-8.2) g/dL Albumin (3.5-5.0) g/dL Urine Color Light Yellow Urine Appearance Clear (Clear) Urine pH 5.5 (5.0-8.0) Ur Specific [place] 1.018 (1.001-1.035) Urine Protein Negative (Negative) Urine Glucose (UA) Negative (Negative) Urine Ketones Negative (Negative) Urine Blood Negative (Negative) Urine Nitrite Negative (Negative) Urine Bilirubin Negative (Negative) Urine Urobilinogen <2.0 (<2.0) mg/dL Ur Leukocyte Esterase Negative (Negative) - Radiology Data Radiology results: report reviewed (CTA negative for PE), image reviewed Critical Care Time Critical Care Time: Yes Total Critical Care Time: 31 Disposition Clinical Impression: Chest pain, Dehydration, Tachycardia, Near syncope, Atypical chest pain, Dizziness, Acute anxiety Disposition: ADMITTED IP TO THIS [facility] Condition: Fair Is patient prescribed a controlled substance at d/c from ED?: No
[2020-05-05] MEDS ORDERED: MORPHINE SULFATE 4 MG/ML SYRINGE IVP STA (18:33)
[2020-05-05] MEDS ORDERED: METOPROLOL TARTRATE 5 MG/5 ML VIAL IVP STA (18:33)
[2020-05-05] MEDS ORDERED: MORPHINE SULFATE 4 MG/ML SYRINGE IVP PRN (18:33)
[2020-05-05 18:53] LABS: Basophils % (A) 1 %; Eosinophils # (A) 0.1 k/uL (0-0.7); Eosinophils % (A) 2 %; HCT 40.5 % (34.0-46.0); HGB 13.5 gm/dL (11.4-16.0); Lymphocytes % (A) 27 %; MCH 28.1 pg (25.0-35.0); MCHC 33.4 g/dL (31.0-37.0); MCV 84.4 fL (80.0-100.0); Mean Platelet Volume 8.9; Monocytes # (A) 0.4 k/uL (0-1.0); Monocytes % (A) 6 %; Neutrophils # (A) 4.6 k/uL (1.3-7.7); Neutrophils % (A) 64 %; Platelet Count 316 k/uL (150-450); RBC 4.81 m/uL (3.80-5.40); RDW 12.4 % (11.5-15.5); WBC 7.3 k/uL (3.8-10.6)
[2020-05-05 19:07] LABS: ALT 12 U/L (4-34); AST 22 U/L (14-36); African American GFR (CKD) >90 (>60 ml/min/1.73 sqM); Albumin 4.7 g/dL (3.5-5.0); Alkaline Phosphatase 57 U/L (38-126); Anion Gap 15 mmol/L; Blood Urea Nitrogen 15 mg/dL (7-17); Calcium 9.9 mg/dL (8.4-10.2); Carbon Dioxide 15 mmol/L (22-30); Chloride 107 mmol/L (98-107); Glucose 146 mg/dL (74-99); Magnesium 1.6 mg/dL (1.6-2.3); Non-African American GFR(CKD) >90 (>60 ml/min/1.73 sqM); Phosphorus 1.3 mg/dL (2.5-4.5); Potassium 2.9 mmol/L (3.5-5.1); Sodium 137 mmol/L (137-145); Total Bilirubin 0.6 mg/dL (0.2-1.3); Total Protein 7.6 g/dL (6.3-8.2)
--- NOTE | 2020-05-05 19:16 | CT ---
EXAMINATION TYPE: CT angio chest DATE OF EXAM: 05/05/2020 COMPARISON: None HISTORY: Difficulty breathing. CT DLP: 296.2 mGycm Automated exposure control for dose reduction was used. CONTRAST: Performed with IV Contrast, patient injected with 100 mL of Isovue 300. There are 3-D post processed images. There is no mediastinal adenopathy. There are no hilar masses. Heart size is normal. There is no dari cardial effusion. There is mild interstitial density at the lung bases. Ascending aorta measures 3.2 cm. There is no thoracic aortic aneurysm or dissection. There is normal contrast opacification of the pulmonary arteries. There are no filling defects. The bony thorax is intact. There is no thoracic compression fracture. Sternum is intact. IMPRESSION: Mild interstitial density at the lung bases. No pulmonary consolidation. No suspicious mass. No evidence of pulmonary embolism.
[2020-05-05] MEDS ORDERED: POTASSIUM CHLORIDE 20 MEQ in WATER FOR INJECTION 1 100ML.BAG IVPB STA (19:27)
[2020-05-05] MEDS ORDERED: POTASSIUM BICARBONATE/CIT AC 20 MEQ TABLET.EFF PO STA (19:27)
[2020-05-05] MEDS ORDERED: MAGNESIUM SULFATE-D5W PMX 1 GM in DEXTROSE/WATER 1 100ML.BAG IVPB STA (19:27)
[2020-05-05] MEDS ORDERED: MAGNESIUM OXIDE 400 MG TAB PO STA (19:27)
[2020-05-05] MEDS ORDERED: ASPIRIN 81 MG PO STA (20:25)
[2020-05-05] MEDS ORDERED: NITROGLYCERIN SL TABS 0.4 MG TAB SUBLINGUAL PRN (20:25)
[2020-05-05 20:29] LABS: Appearance,Urine Clear (Clear); Bilirubin,Urine Negative (Negative); Blood,Urine Negative (Negative); Color,Urine Light Yellow; Glucose,Urine (UA) Negative (Negative); Ketones,Urine Negative (Negative); Leukocyte Esterase,Urine Negative (Negative); Nitrite,Urine Negative (Negative); PH, Urine 5.5 (5.0-8.0); Protein,Urine Negative (Negative); Specific Gravity,Urine 1.018 (1.001-1.035); Urobilinogen,Urine <2.0 mg/dL (<2.0)
[2020-05-05] MEDS ORDERED: DULoxetine HCL 30 MG CAPSULE.DR PO SCH (22:15)
[2020-05-05] MEDS ORDERED: AMITRIPTYLINE HCL 50 MG TAB PO SCH (22:15)
[2020-05-06 06:21] LABS: ALT 7 U/L (4-34); AST 16 U/L (14-36); African American GFR (CKD) >90 (>60 ml/min/1.73 sqM); Albumin 3.1 g/dL (3.5-5.0); Alkaline Phosphatase 36 U/L (38-126); Anion Gap 3 mmol/L; Blood Urea Nitrogen 13 mg/dL (7-17); Calcium 8.2 mg/dL (8.4-10.2); Carbon Dioxide 20 mmol/L (22-30); Chloride 114 mmol/L (98-107); Cholesterol 114 mg/dL (<200); Glucose 95 mg/dL (74-99); HDL Cholesterol 41 mg/dL (40-60); LDL Cholesterol,Calculated 63 mg/dL (0-99); Non-African American GFR(CKD) >90 (>60 ml/min/1.73 sqM); Potassium 4.5 mmol/L (3.5-5.1); Sodium 137 mmol/L (137-145); Total Bilirubin 0.4 mg/dL (0.2-1.3); Total Protein 5.4 g/dL (6.3-8.2); Triglycerides 51 mg/dL (<150)
[2020-05-06 08:07] VITALS: BP 135/87; PULSE 73; RESP 16; TEMP 97.3
--- NOTE | 2020-05-06 08:10 | P.HPIM ---
History of Present Illness H&P Date: 05/06/20 Chief Complaint: Dizziness with intermittent back chest pain This is a history of physical and a 39-year-old white female with no known previous history of coronary disease who comes in complaining of significant abdominal pain which then started radiating to her back. The pain was incessant and would not go away so she called EMS. During that time she started having significant chest pain. No diaphoresis was also noted but no radiation was stated. No syncope but some mild dizziness. She states that she has had poor appetite for the last 3 days and it did show given her electrolyte imbalance on admission. Positive tobacco user. Element of opiate dependence and she is in remission with this but taking Suboxone and we are slowly weaning. Review of Systems Constitutional: Reports chronic pain, Reports weakness Eyes: denies blurred vision, denies pain Ears, nose, mouth and throat: Denies headache, Denies sore throat Cardiovascular: Reports as per HPI, Reports chest pain, Reports lightheadedness, Denies leg edema, Denies syncope Respiratory: Denies cough Gastrointestinal: Denies abdominal pain, Denies diarrhea, Denies nausea, Denies vomiting Genitourinary: Denies dysuria, Denies hematuria Past Medical History Additional Past Medical History / Comment(s): anemia 2 blood transfusions bood disorder hep c History of Any Multi-Drug Resistant Organisms: None Reported Past Surgical History: Section, Hysterectomy, Tonsillectomy Past Anesthesia/Blood Transfusion Reactions: No Reported Reaction Past Psychological History: Anxiety, Bipolar Smoking Status: Vaper Past Alcohol Use History: None Reported, Rare Past Drug Use History: None Reported, Opiates Medications and Allergies Home Medications Medication Instructions Recorded Confirmed Type Amitriptyline HCl 50 mg PO HS 05/05/20 05/05/20 History Buprenorphine HCl/Naloxone HCl 1 film SL DAILY 05/05/20 05/05/20 History [Suboxone 12 mg-3 mg Sl Film] DULoxetine HCL [Cymbalta] 30 mg PO HS 05/05/20 05/05/20 History Allergies Allergy/AdvReac Type Severity Reaction Status Date / Time sumatriptan [From Imitrex] Allergy Swelling Verified 05/05/20 20:58 Physical Exam Vitals: Vital Signs Temp Pulse Pulse Resp BP BP BP 05/06/20 08:06 97.3 F L 73 16 135/87 05/06/20 03:00 97.6 F 65 17 120/79 05/05/20 22:04 66 15 05/05/20 20:58 98.8 F 05/05/20 20:50 77 12 119/82 05/05/20 20:44 97.8 F 66 15 129/85 05/05/20 19:04 91 16 152/108 05/05/20 18:06 98.2 F 118 H 18 166/88 Pulse Ox 05/06/20 08:06 99 05/06/20 03:00 100 05/05/20 22:04 05/05/20 20:58 05/05/20 20:50 97 05/05/20 20:44 97 05/05/20 19:04 100 05/05/20 18:06 98 Intake and Output 05/05/20 05/06/20 05/06/20 22:59 06:59 14:59 Other: Voiding Method Toilet Toilet # Voids 1 Weight 72.575 kg - Constitutional General appearance: no acute distress - EENT Eyes: EOMI - Neck Neck: no lymphadenopathy - Respiratory Respiratory: bilateral: CTA - Cardiovascular Rhythm: regular Heart sounds: normal: S1, S2 Abnormal Heart Sounds: no S3 Gallop - Gastrointestinal General gastrointestinal: soft, no tenderness - Integumentary Integumentary: no cellulitis - Neurologic Neurologic: CNII-XII intact Results CBC & Chem 7: 05/05/20 18:44 05/06/20 05:31 Labs: Abnormal Lab Results - Last 24 Hours (Table) 05/05/20 05/05/20 05/05/20 Range/Units 18:44 18:44 22:20 Potassium 2.9 L (3.5-5.1) mmol/L Chloride (98-107) mmol/L Carbon Dioxide 15 L (22-30) mmol/L Glucose 146 H (74-99) mg/dL Plasma Lactic Acid Anjel 3.3 H* 0.6 L (0.7-2.0) mmol/L Calcium (8.4-10.2) mg/dL Phosphorus 1.3 L (2.5-4.5) mg/dL Alkaline Phosphatase (38-126) U/L Total Protein (6.3-8.2) g/dL Albumin (3.5-5.0) g/dL 05/06/20 Range/Units 05:31 Potassium (3.5-5.1) mmol/L Chloride 114 H (98-107) mmol/L Carbon Dioxide 20 L (22-30) mmol/L Glucose (74-99) mg/dL Plasma Lactic Acid Anjel (0.7-2.0) mmol/L Calcium 8.2 L (8.4-10.2) mg/dL Phosphorus (2.5-4.5) mg/dL Alkaline Phosphatase 36 L (38-126) U/L Total Protein 5.4 L (6.3-8.2) g/dL Albumin 3.1 L (3.5-5.0) g/dL Thrombosis Risk Factor Assmnt - Choose All That Apply Each Factor Represents 1 point: Age 41-60 years, Obesity (BMI >25) Thrombosis Risk Factor Assessment Total Risk Factor Score: 2 Thrombosis Risk Factor Assessment Level: Low Risk Assessment and Plan (1) Opiate dependence Current Visit: Yes Status: Acute Code(s): F11.20 - OPIOID DEPENDENCE, UNCOMPLICATED SNOMED Code(s): 21435740 (2) Chest pain Current Visit: Yes Status: Acute Code(s): R07.9 - CHEST PAIN, UNSPECIFIED SNOMED Code(s): 06598261 (3) Dehydration Current Visit: Yes Status: Acute Code(s): E86.0 - DEHYDRATION SNOMED Code(s): 91261236 (4) Tachycardia Current Visit: Yes Status: Acute Code(s): R00.0 - TACHYCARDIA, UNSPECIFIED SNOMED Code(s): 9158244 Plan: Myocardial infraction ruled out. Question unstable angina versus atypical chest pain. Opiate dependence. Reconcile medications. Await cardiology input as stress test versus echo. Anticipate discharge in next 24 hours.
[2020-05-06] MEDS ORDERED: METOPROLOL TARTRATE 25 MG TAB PO SCH (09:00)
[2020-05-06] MEDS ORDERED: NALOXONE HCL PO SCH (09:00)
[2020-05-06] MEDS ORDERED: [UNRECOGNIZED DRUG - OTHER] PO SCH (09:00)
[2020-05-06] MEDS ORDERED: ASPIRIN 325 MG TAB PO SCH (09:00)
[2020-05-06] MEDS ORDERED: BUPRENORPHINE HCL PO SCH (09:00)
--- NOTE | 2020-05-06 09:39 | P.CRDCN ---
History of Present Illness Consult date: 05/06/20 History of present illness: CHIEF COMPLAINT: Chest pain HISTORY OF PRESENT ILLNESS: This is a 39-year old female with a past medical history significant for anxiety, and bipolar disorder. Patient does not follow with a social organization professor. We have been asked to see the patient in consultation for chest pain. Patient examined this morning at the bedside. Patient states she was on the phone yesterday talking to her mom and she began having pain in her lower back. She states the pain went up to the middle of her back. She felt like her heart was racing. She began having a tingling sensation throughout her whole body and felt warm. She felt like her tongue became a little bit swollen as well. She denies having any chest pain however. She reports a family history of cardiac disease and states her dad had a CABG 4 when he was in his 40s and her sister who is 43 years old was just found to have a blockage in her heart. DIAGNOSTICS: EKG reveals sinus tachycardia without acute signs of ischemia. Chest CTA: Mild interstitial density at the lung bases. No pulmonary consolidation. No suspicious mass. No evidence of PE. Laboratory data: W BC 7.3. Hemoglobin 13.5. Platelet count 316. Sodium 137. Potassium 2.9. Repeat 4.5. BUN 15. Creatinine 0.78. Magnesium 1.6. Troponin negative 3 Current home cardiac medications include: None REVIEW OF SYSTEMS: At the time of my exam: CONSTITUTIONAL: Denies fever or chills. HEENT: Denies blurred vision, vision changes, or eye pain. Denies hemoptysis CARDIOVASCULAR: Denies chest pain, orthopnea, PND or palpitations RESPIRATORY: No shortness of breath. GASTROINTESTINAL: Denies abdominal pain. Denies nausea or vomiting. HEMATOLOGIC: Denies bleeding disorders. GENITOURINARY: Denies any blood in urine. SKIN: Denies pruitis. Denies rash. PHYSICAL EXAM: VITAL SIGNS: Reviewed. GENERAL: Well-developed in no acute distress. HEENT: Head is normocephalic. Pupils are equal, round. Sclerae anicteric. Mucous membranes of the mouth are moist. Neck supple. No JVD or thyromegaly LUNGS: Respirations even and unlabored. Lungs essentially clear to auscultation bilaterally. HEART: Regular rate and rhythm. S1 and S2 heard. ABDOMEN: Soft. Nondistended. Nontender. EXTREMITIES: Normal range of motion. No clubbing or cyanosis. Peripheral pulses intact. No lower extremity edema NEUROLOGIC: Awake and alert. Oriented x 3. ASSESSMENT: Palpitations with reports of tingling sensations, swollen tongue, shortness of breath, and lower back discomfort Anxiety Bipolar disorder Hypokalemia Family history of heart disease PLAN: Continue telemetry monitoring Check TSH Obtain 2-D echo to assess cardiac structure and function Patient reports multiple symptoms yesterday, however she denied having any chest pain or pressure. Her symptoms appear to be related to anxiety. However, due to her family history of heart disease patient will undergo stress test this morning If stress test is negative and echocardiogram does not reveal any significant abnormalities, patient may be discharged home today from a cardiac perspective Nurse practitioner note has been reviewed by physician. Signing provider agrees with the documented findings, assessment, and plan of care. Past Medical History Additional Past Medical History / Comment(s): anemia 2 blood transfusions bood disorder hep c History of Any Multi-Drug Resistant Organisms: None Reported Past Surgical History: Section, Hysterectomy, Tonsillectomy Past Anesthesia/Blood Transfusion Reactions: No Reported Reaction Past Psychological History: Anxiety, Bipolar Smoking Status: Vaper Past Alcohol Use History: None Reported, Rare Past Drug Use History: None Reported, Opiates Medications and Allergies Home Medications Medication Instructions Recorded Confirmed Type Amitriptyline HCl 50 mg PO HS 05/05/20 05/05/20 History Buprenorphine HCl/Naloxone HCl 1 film SL DAILY 05/05/20 05/05/20 History [Suboxone 12 mg-3 mg Sl Film] DULoxetine HCL [Cymbalta] 30 mg PO HS 05/05/20 05/05/20 History Allergies Allergy/AdvReac Type Severity Reaction Status Date / Time sumatriptan [From Imitrex] Allergy Swelling Verified 05/05/20 20:58 Physical Exam Vitals: Vital Signs Temp Pulse Pulse Resp BP BP BP 05/06/20 09:00 16 05/06/20 08:06 97.3 F L 73 16 135/87 05/06/20 03:00 97.6 F 65 17 120/79 05/05/20 22:04 66 15 05/05/20 20:58 98.8 F 05/05/20 20:50 77 12 119/82 05/05/20 20:44 97.8 F 66 15 129/85 05/05/20 19:04 91 16 152/108 05/05/20 18:06 98.2 F 118 H 18 166/88 Pulse Ox 05/06/20 09:00 05/06/20 08:06 99 05/06/20 03:00 100 05/05/20 22:04 05/05/20 20:58 05/05/20 20:50 97 05/05/20 20:44 97 05/05/20 19:04 100 05/05/20 18:06 98 Intake and Output 05/05/20 05/06/20 05/06/20 22:59 06:59 14:59 Other: Voiding Method Toilet Toilet Toilet # Voids 1 Weight 72.575 kg Results 05/05/20 18:44 05/06/20 05:31 Cardiac Enzymes 05/05/20 05/05/20 05/05/20 Range/Units 18:44 18:44 22:20 AST 22 (14-36) U/L Troponin I <0.012 <0.012 (0.000-0.034) ng/mL 05/06/20 05/06/20 Range/Units 01:38 05:31 AST 16 (14-36) U/L Troponin I <0.012 (0.000-0.034) ng/mL Lipids 05/06/20 Range/Units 05:31 Triglycerides 51 (<150) mg/dL Cholesterol 114 (<200) mg/dL HDL Cholesterol 41 (40-60) mg/dL CBC 05/05/20 Range/Units 18:44 WBC 7.3 (3.8-10.6) k/uL RBC 4.81 (3.80-5.40) m/uL Hgb 13.5 (11.4-16.0) gm/dL Hct 40.5 (34.0-46.0) % Plt Count 316 (150-450) k/uL Comprehensive Metabolic Panel 05/05/20 05/06/20 Range/Units 18:44 05:31 Sodium 137 137 (137-145) mmol/L Potassium 2.9 L 4.5 (3.5-5.1) mmol/L Chloride 107 114 H (98-107) mmol/L Carbon Dioxide 15 L 20 L (22-30) mmol/L BUN 15 13 (7-17) mg/dL Creatinine 0.78 0.60 (0.52-1.04) mg/dL Glucose 146 H 95 (74-99) mg/dL Calcium 9.9 8.2 L (8.4-10.2) mg/dL AST 22 16 (14-36) U/L ALT 12 7 (4-34) U/L Alkaline Phosphatase 57 36 L (38-126) U/L Total Protein 7.6 5.4 L (6.3-8.2) g/dL Albumin 4.7 3.1 L (3.5-5.0) g/dL Current Medications Generic Name Dose Route Start Last Admin Trade Name Freq PRN Reason Stop Dose Admin Amitriptyline HCl 50 mg 05/05/20 22:15 05/05/20 23:09 Amitriptyline Hcl 50 Mg Tab PO 50 mg HS MINNIE Administration Aspirin 325 mg 05/06/20 09:00 Aspirin 325 Mg Tab PO DAILY MINNIE Duloxetine HCl 30 mg 05/05/20 22:15 05/05/20 23:09 Duloxetine Hcl 30 Mg Capsule.Dr PO 30 mg HS MINNIE Administration Metoprolol Tartrate 25 mg 05/06/20 09:00 Metoprolol Tartrate 25 Mg Tab PO BID MINNIE Nitroglycerin 0.4 mg 05/05/20 20:25 Nitroglycerin Sl Tabs 0.4 Mg Tab SUBLINGUAL Q5M PRN Chest Pain Non-Formulary Medication 1 film 05/06/20 09:00 Buprenorphine Hcl/Naloxone Hcl [Suboxone 12 Mg-3 Mg Sl Film] PO DAILY MINNIE Intake and Output 05/05/20 05/06/20 05/06/20 22:59 06:59 14:59 Other: Voiding Method Toilet Toilet Toilet # Voids 1 Weight 72.575 kg 05/05/20 18:44 05/06/20 05:31
--- NOTE | 2020-05-06 10:00 | ECHOF ---
Referral Reason:LV function MEASUREMENTS -------- HEIGHT: 160.0 cm WEIGHT: 72.6 kg BP: 135/87 IVSd: 1.0 cm (0.6 - 1.1) LVIDd: 4.1 cm (3.9 - 5.3) LVPWd: 1.1 cm (0.6 - 1.1) IVSs: 1.5 cm LVIDs: 2.4 cm LVPWs: 1.3 cm LAESV Index (A-L): 27.27 ml/m Ao Diam: 2.6 cm (2.0 - 3.7) AV Cusp: 2.0 cm (1.5 - 2.6) LA Diam: 2.5 cm (2.7 - 3.8) MV EXCURSION: 13.666 mm (> 18.000) MV EF SLOPE: 123 mm/s (70 - 150) EPSS: 1.0 cm MV E Manjit: 1.00 m/s MV DecT: 195 ms MV A Manjit: 1.22 m/s MV E/A Ratio: 0.82 AV maxP.69 mmHg AV meanP.04 mmHg RAP: 5.00 mmHg RVSP: 28.64 mmHg FINDINGS -------- This was a technically good study. The left ventricular size is normal. Left ventricular wall thickness is normal. Overall left vent ricular systolic function is normal with, an EF between 55 - 60 %. The diastolic filling pattern is normal for the age of the patient {E/E'}. The right ventricle is normal in size. The left atrial size is normal. Normal LA size by volume 22+/-6 ml/m2. The right atrial size is normal. Interatrial and interventricular septum intact. The aortic valve is trileaflet and appears structurally normal. The mitral valve is normal. There is trace mitral regurgitation. The tricuspid valve appears structurally normal. Mild tricuspid regurgitation present. Right vent ricular systolic pressure is normal at < 35 mmHg. There is no pulmonic regurgitation present. The aortic root size is normal. Normal inferior vena cava with normal inspiratory collapse consistent with estimated right atrial pre ssure of 5 mmHg. There is a trivial pericardial effusion present. CONCLUSIONS -------- 1. The left ventricular size is normal. 2. Left ventricular wall thickness is normal. 3. Overall left ventricular systolic function is normal with, an EF between 55 - 60 %. 4. The diastolic filling pattern is normal for the age of the patient {E/E'} 5. There is trace mitral regurgitation. 6. Mild tricuspid regurgitation present. 7. There is a trivial pericardial effusion present. PLANNER SCHEDULER: Mere Rizo RDCS
--- NOTE | 2020-05-06 10:06 | P.STRESS ---
- Stress Test Note Stress Test Results/Findings: Exam Performed: stress test Exam Date: 05/06/20 Reason for Exam: CHEST PAIN Height: 5 ft 3 in Weight: 72.57 kg Protocol: ORQUIDEA ETT Stage: 2 Duration of Exercise: 6:21 MINUTES Resting Heart Rate: 84 Resting Blood Pressure: 164/105 Maximum Achieved Heart Rate: 156 Maximum Achieved Blood Pressure: 164/105 85% PMHR: 152 100% PMHR: 179 METS: 7.7 Technologist Comment: Stress Test Results/Findings: This is a 39-year-old female was admitted to the hospital with atypical chest pain. Cardiac enzymes are negative. EKG did not reveal any acute changes. Stress data: Baseline EKG showed sinus rhythm with normal ME interval, QRS duration. Blood pressure at rest is 164/105 with pulse rate of 84. Patient walked on the Orquidea protocol for 6 minutes and 21 seconds achieving a maximal heart rate of 156 with a blood pressure 154/95. EKGs taken during and after exercise did not reveal any changes of ischemia. Patient complained of mild lightheadedness. Final impression: #1. Negative stress test #2. Patient did not experience any chest pain. #3. No arrhythmias noted before.
--- NOTE | 2020-05-06 11:10 | EST ---
Stress Test Results/Findings: Exam Performed: stress test Exam Date: 05/06/20 Reason for Exam: CHEST PAIN Height: 5 ft 3 in Weight: 72.57 kg Protocol: ORQUIDEA ETT Stage: 2 Duration of Exercise: 6:21 MINUTES Resting Heart Rate: 84 Resting Blood Pressure: 164/105 Maximum Achieved Heart Rate: 156 Maximum Achieved Blood Pressure: 164/105 85% PMHR: 152 100% PMHR: 179 METS: 7.7 Technologist Comment: Stress Test Results/Findings: This is a 39-year-old female was admitted to the hospital with atypical chest pain. Cardiac enzymes are negative. EKG did not reveal any acute changes. Stress data: Baseline EKG showed sinus rhythm with normal AR interval, QRS duration. Blood pressure at rest is 164/105 with pulse rate of 84. Patient walked on the Orquidea protocol for 6 minutes and 21 seconds achieving a maximal heart rate of 156 with a blood pressure 154/95. EKGs taken during and after exercise did not reveal any changes of ischemia. Patient complained of mild lightheadedness. Final impression: #1. Negative stress test #2. Patient did not experience any chest pain. #3. No arrhythmias noted before. BRANDON
--- NOTE | 2020-05-06 12:28 | P.DS ---
Providers Date of admission: 05/05/20 20:25 Expected date of discharge: 05/06/20 Attending physician: Dylan Russo Consults: 05/05/20 20:25 Consult Physician Routine Consulting Provider: Naya Ordonez Consult Reason/Comments: cp Do you want consulting provider notified?: Yes Primary care physician: Dylan Russo - Discharge Diagnosis(es) (1) Opiate dependence Current Visit: Yes Status: Acute (2) Chest pain Current Visit: Yes Status: Acute (3) Dehydration Current Visit: Yes Status: Acute (4) Tachycardia Current Visit: Yes Status: Acute Hospital Course: This is discharge from an 39-year-old white female with opiate dependence who had history of atypical type chest pain. Diaphoresis is noted however and given her overall health, she was admitted to rule out myocardial infarction and element of stress testing. Cardiology consult that she had a stress test which is negative and she is discharged in stable condition to follow-up with me in about 7 days. Patient Condition at Discharge: Good Plan - Discharge Summary Discharge Rx Participant: No New Discharge Prescriptions: Continue Amitriptyline HCl 50 mg PO HS DULoxetine HCL [Cymbalta] 30 mg PO HS Buprenorphine HCl/Naloxone HCl [Suboxone 12 mg-3 mg Sl Film] 1 film SL DAILY Discharge Medication List Amitriptyline HCl 50 mg PO HS 05/05/20 [History] Buprenorphine HCl/Naloxone HCl [Suboxone 12 mg-3 mg Sl Film] 1 film SL DAILY 05/05/20 [History] DULoxetine HCL [Cymbalta] 30 mg PO HS 05/05/20 [History] Follow up Appointment(s)/Referral(s): Dylan Russo MD [Primary Care Provider] - 1 Week Discharge Disposition: HOME SELF-CARE
== END 2020-05-06 12:45 | disposition home or self-care (01) ==
LOC: EC 18:04 → 3NCARDOBS 20:25
PROVIDERS: ADMIT Family Medicine; ATTEND Family Medicine
DX: R42 Dizziness and giddiness (principal); R07.89 Other chest pain; R00.0 Tachycardia, unspecified; R61 Generalized hyperhidrosis; E86.0 Dehydration; M54.5 Low back pain; E87.6 Hypokalemia; F11.20 Opioid dependence, uncomplicated; F31.9 Bipolar disorder, unspecified; F41.9 Anxiety disorder, unspecified; J98.4 Other disorders of lung; Z72.0 Tobacco use; Z82.49 Family history of ischemic heart disease and other diseases of the circulatory system
CPT/HCPCS: 93005 ×2; 96361 ×3; 96366 ×2; 96365; 96375; 99285; 36415; 93017; 93306; 80061; 80053 ×2; 84443; 83605; 83735; 84100; 84484 ×2; 85025; 81003; 71275; G0378 ×2; J2060; J2270; J3480; J2405; J3475; Q9967

== ENCOUNTER 2020-05-08 16:54 | Emergency (ER) | payer OTHER ==
[2020-05-08] MEDS ORDERED: ASPIRIN 81 MG PO STA (17:37)
[2020-05-08] MEDS ORDERED: ONDANSETRON 4 MG/2 ML VIAL IVP STA (17:59)
[2020-05-08] MEDS ORDERED: LORazepam 2 MG/ML INJ IV STA (17:59)
[2020-05-08 18:30] LABS: Basophils % (A) 0 %; Eosinophils # (A) 0.2 k/uL (0-0.7); Eosinophils % (A) 2 %; HCT 43.5 % (34.0-46.0); HGB 13.9 gm/dL (11.4-16.0); Lymphocytes # (A) 1.1 k/uL (1.0-4.8); Lymphocytes % (A) 12 %; MCH 27.3 pg (25.0-35.0); MCHC 31.9 g/dL (31.0-37.0); MCV 85.6 fL (80.0-100.0); Mean Platelet Volume 9.3; Monocytes # (A) 0.2 k/uL (0-1.0); Monocytes % (A) 3 %; Neutrophils # (A) 7.7 k/uL (1.3-7.7); Neutrophils % (A) 83 %; Platelet Count 267 k/uL (150-450); RBC 5.08 m/uL (3.80-5.40); RDW 12.6 % (11.5-15.5); WBC 9.3 k/uL (3.8-10.6)
[2020-05-08 18:39] LABS: ALT 11 U/L (4-34); AST 23 U/L (14-36); African American GFR (CKD) >90 (>60 ml/min/1.73 sqM); Alkaline Phosphatase 74 U/L (38-126); Anion Gap 13 mmol/L; Blood Urea Nitrogen 18 mg/dL (7-17); Calcium 10.6 mg/dL (8.4-10.2); Carbon Dioxide 19 mmol/L (22-30); Chloride 107 mmol/L (98-107); Glucose 132 mg/dL (74-99); Magnesium 1.4 mg/dL (1.6-2.3); Non-African American GFR(CKD) >90 (>60 ml/min/1.73 sqM); Potassium 3.7 mmol/L (3.5-5.1); Sodium 139 mmol/L (137-145); Total Bilirubin 0.6 mg/dL (0.2-1.3); Total Protein 7.9 g/dL (6.3-8.2)
[2020-05-08 19:07] LABS: D-Dimer 0.18 mg/L FEU (<0.60); Prothrombin Time 10.4 sec (9.0-12.0)
--- NOTE | 2020-05-08 19:09 | XR ---
EXAMINATION TYPE: XR chest 2V DATE OF EXAM: 05/08/2020 COMPARISON: 05/30/2018 HISTORY: Weakness. Chest pain TECHNIQUE: FINDINGS: Heart and mediastinum are normal. Lungs are clear. Diaphragm is normal. Bony thorax appears normal. IMPRESSION: Normal chest. No change.
[2020-05-08 19:11] VITALS: RESP 18
[2020-05-08 19:15] LABS: Partial Thromboplastin Time 21.9 sec (22.0-30.0)
[2020-05-08] MEDS ORDERED: MAGNESIUM OXIDE 400 MG TAB PO STA (19:20)
--- NOTE | 2020-05-08 19:27 | ED ---
Chest Pain HPI - General Chief Complaint: Chest Pain Stated Complaint: anxiety attack Time Seen by Provider: 05/08/20 17:37 Source: patient Mode of arrival: ambulatory Limitations: no limitations - History of Present Illness Initial Comments: Patient is a 39-year-old female presenting to the emergency department with a chief complaint of chest pain and shortness of breath. Patient states her symptoms began earlier today while she was watching TV. She does report history of anxiety as feels like her anxiety but is concerned that this may be cardiov ascular related. Patient states she was discharged 2 days ago after was admitted for observation for the exact same symptoms. Patient states she was diagnosed with anxiety prior to discharge last time. Patient states she does have midsternal chest pain that is exacerbated with taking deep breaths. She also reports feeling numbness and tingling throughout the rest of the body. She denies a diaphoretic episode. - Related Data Home Medications Medication Instructions Recorded Confirmed Amitriptyline HCl 50 mg PO HS 05/05/20 05/05/20 Buprenorphine HCl/Naloxone HCl 1 film SL DAILY 05/05/20 05/05/20 [Suboxone 12 mg-3 mg Sl Film] DULoxetine HCL [Cymbalta] 30 mg PO HS 05/05/20 05/05/20 Allergies Allergy/AdvReac Type Severity Reaction Status Date / Time sumatriptan [From Imitrex] Allergy Swelling Verified 05/08/20 17:08 Review of Systems ROS Statement: Those systems with pertinent positive or pertinent negative responses have been documented in the HPI. ROS Other: All systems not noted in ROS Statement are negative. Past Medical History Additional Past Medical History / Comment(s): anemia 2 blood transfusions bood disorder hep c History of Any Multi-Drug Resistant Organisms: None Reported Past Surgical History: Section, Hysterectomy, Tonsillectomy Past Anesthesia/Blood Transfusion Reactions: No Reported Reaction Past Psychological History: Anxiety, Bipolar Smoking Status: Current every day smoker, Vaper Past Alcohol Use History: Rare Past Drug Use History: Opiates General Exam Limitations: no limitations General appearance: alert, in no apparent distress, anxious Head exam: Present: atraumatic, normocephalic Eye exam: Present: normal appearance, PERRL, EOMI Pupils: Present: normal accommodation ENT exam: Present: normal exam, normal oropharynx, mucous membranes moist, TM's normal bilaterally, normal external ear exam Neck exam: Present: normal inspection, full ROM. Absent: tenderness Respiratory exam: Present: normal lung sounds bilaterally. Absent: respiratory distress, wheezes, rales Cardiovascular Exam: Present: regular rate, normal rhythm, normal heart sounds. Absent: bradycardia, tachycardia, irregular rhythm Extremities exam: Present: normal inspection, full ROM, normal capillary refill. Absent: tenderness, pedal edema, joint swelling, calf tenderness Back exam: Present: normal inspection, full ROM. Absent: tenderness, CVA tenderness (R), CVA tenderness (L) Neurological exam: Present: alert, oriented X3, normal gait Psychiatric exam: Present: normal affect, normal mood, anxious Skin exam: Present: warm, dry, intact, normal color Course Vital Signs 05/08/20 05/08/20 05/08/20 17:04 17:40 19:10 Temperature 97.7 F Pulse Rate 104 H 62 Pulse Rate [ 93 Relocation Specialist ] Respiratory 18 22 18 Rate Blood Pressure 164/117 142/88 O2 Sat by Pulse 99 99 Oximetry - Reevaluation(s) Reevaluation #1: 05/08/20 19:23 Medical record reviewed Chest Pain [facility] - Differential Diagnosis ACS, Panic Disorder/Anxiety - [facility] Patient is a 39-year-old female presenting to the emergency department with a chief complaint of chest pain or shortness of breath. Patient was discharged 2 days ago after she was admitted for cardiac observation. She was diagnosed with anxiety. On initial evaluation, patient is very anxious and is complaining of pleuritic chest pain without any radiation. Cardiac workup initiated reveals mild hypomagnesemia 1.4. CMP is unremarkable. Initial troponin is negative. D-dimer negative. Patient was given 400 mg of magnesium oxide by mouth. EKG revealed a sinus rhythm and no ST or T-wave changes. Echocardiogram and stress test from 2 days ago were within normal limits. Patient was also given 1 mg of IV Ativan. Reevaluation patient is behaving much better. Patient states her symptoms are completely resolved. I advised the patient to start seeing a psychiatrist and top of seeing a counselor. I will discharge the patient with 6 tablets of Xanax. Strict return parameters were thoroughly discussed the patient is an attending agreeable. Case discussed with physician. Disposition Clinical Impression: Atypical chest pain, Acute anxiety Disposition: ADMITTED IP TO THIS [facility] Condition: Stable Instructions (If sedation given, give patient instructions): Chest Pain (ED) Additional Instructions: Follow-up with a psychiatrist. Extremities patient is directed. Return to emergency department if symptoms worsen. Is patient prescribed a controlled substance at d/c from ED?: No Referrals: Dylan Russo MD [Primary Care Provider] - 1-2 days Time of Disposition: 19:27
[2020-05-08 19:51] VITALS: BP 121/94; PULSE 79; TEMP 98.3
== END 2020-05-08 19:50 | disposition other institution (70) ==
LOC: EC 16:54
DX: R07.89 Other chest pain (principal); E83.42 Hypomagnesemia; F41.9 Anxiety disorder, unspecified; F32.9 Major depressive disorder, single episode, unspecified; F17.290 Nicotine dependence, other tobacco product, uncomplicated; Z88.8 Allergy status to other drugs, medicaments and biological substances
CPT/HCPCS: 36415; 93005; 85379; 80053; 83735; 84484; 85025; 85610; 85730; 71046; 99285; 96374; 96375; J2060; J2405

== ENCOUNTER 2020-05-19 13:40 | Emergency (ER) | payer OTHER ==
--- NOTE | 2020-05-19 14:40 | XR ---
EXAMINATION TYPE: XR chest 2V DATE OF EXAM: 05/19/2020 COMPARISON: 05/08/2020 HISTORY: Chest pain TECHNIQUE: Frontal and lateral views of the chest are obtained. FINDINGS: There is no focal air space opacity. No evidence for pneumothorax. No pleural effusion. The cardiac silhouette size is within normal limits. The osseous structures are grossly intact. IMPRESSION: 1. No acute cardiopulmonary process.
[2020-05-19] MEDS ORDERED: DIAZEPAM 5 MG/ML 2 ML INJ IVP STA (15:49)
[2020-05-19] MEDS ORDERED: KETOROLAC 15 MG/ML 1 ML VIAL IVP STA (15:49)
--- NOTE | 2020-05-19 16:32 | ED ---
General Adult HPI - General Chief complaint: Shortness of Breath Stated complaint: shoulder/arm pain/SOB Time Seen by Provider: 05/19/20 15:29 Source: patient, RN notes reviewed Mode of arrival: ambulatory Limitations: no limitations - History of Present Illness Initial comments: this a 39-year-old female presents emergency Department chief complaint of left shoulder, scapular pain. Patient states she's been having symptoms for several weeks she was admitted to the hospital for cardiac rule out which she has stress echo and was negative and was told that is most likely related to anxiety. She was started on Ativan. Patient states his symptoms worsen today though she tried taking Ativan earlier today with no relief. She is increasing pain with range of motion of her left shoulder she is [id number]. Denies any new activities. Patient states that the pain is not altered in nature. It is reproducible with touch. Patient has no current shortness of breath she states when the pain is intense does make her feel short of breath. Patient had negative d-dimer, patient denies any current nausea vomiting diarrhea constipation no fevers chills no productive cough. - Related Data Home Medications Medication Instructions Recorded Confirmed Amitriptyline HCl 25 mg PO HS 05/05/20 05/19/20 Buprenorphine HCl/Naloxone HCl 0.5 film SL BID 05/05/20 05/19/20 [Suboxone 12 mg-3 mg Sl Film] ARIPiprazole [Abilify] 15 mg PO DAILY 05/19/20 05/19/20 LORazepam [Ativan] 1 mg PO Q8H PRN 05/19/20 05/19/20 busPIRone HCl [Buspar] 20 mg PO TID 05/19/20 05/19/20 lamoTRIgine [LaMICtal] 25 mg PO HS 05/19/20 05/19/20 Previous Rx's Medication Instructions Recorded Ketorolac [Toradol] 10 mg PO Q8HR #15 tab 05/19/20 Orphenadrine [Norflex] 100 mg PO Q12H #20 tablet.er 05/19/20 Allergies Allergy/AdvReac Type Severity Reaction Status Date / Time sumatriptan [From Imitrex] Allergy Swelling Verified 05/19/20 16:07 Review of Systems ROS Statement: Those systems with pertinent positive or pertinent negative responses have been documented in the HPI. ROS Other: All systems not noted in ROS Statement are negative. Past Medical History Additional Past Medical History / Comment(s): anemia 2 blood transfusions bood disorder hep c History of Any Multi-Drug Resistant Organisms: None Reported Past Surgical History: Section, Hysterectomy, Tonsillectomy Past Anesthesia/Blood Transfusion Reactions: No Reported Reaction Past Psychological History: Anxiety, Bipolar Smoking Status: Current every day smoker, Vaper Past Alcohol Use History: Rare Past Drug Use History: Opiates General Exam Limitations: no limitations General appearance: alert, in no apparent distress, anxious Head exam: Present: atraumatic, normocephalic, normal inspection Eye exam: Present: normal appearance, PERRL, EOMI. Absent: scleral icterus, c onjunctival injection, periorbital swelling ENT exam: Present: normal exam, normal oropharynx, mucous membranes moist Neck exam: Present: normal inspection. Absent: tenderness, meningismus, lymphadenopathy Respiratory exam: Present: normal lung sounds bilaterally. Absent: respiratory distress, wheezes, rales, rhonchi, stridor Cardiovascular Exam: Present: normal rhythm, tachycardia, normal heart sounds. Absent: systolic murmur, diastolic murmur, rubs, gallop, clicks GI/Abdominal exam: Present: soft, normal bowel sounds. Absent: distended, tenderness, guarding, rebound, rigid Back exam: Present: other (reproducible tenderness along the scapular border on the left, mild thoracic paraspinal tenderness) Neurological exam: Present: alert, oriented X3, CN II-XII intact Course Vital Signs 05/19/20 05/19/20 05/19/20 13:58 15:40 16:39 Temperature 97.7 F 97.7 F 98.1 F Pulse Rate 115 H 96 87 Respiratory 18 18 16 Rate Blood Pressure 161/101 171/96 131/96 O2 Sat by Pulse 98 100 98 Oximetry Medical Decision Making - Medical Decision Making 39-year-old female presented emergency from for ongoing scapular pain. Patient has very reproducible pain in the left scapula with increasing pain with mo vement of the left shoulder. This is the same pain she's had for several weeks. She was prior admitted there is evaluate by cardiology and cleared for any cardiac disease. Patient has no anterior chest pain. Patient did have some mild relief with Valium and Toradol though she states she has some residual pain. Patient will be follow-up with orthopedics and return parameters were discussed. - Lab Data Result diagrams: 05/19/20 16:02 05/19/20 16:02 Lab Results 05/19/20 05/19/20 05/19/20 Range/Units 16:02 16:02 16:02 WBC 8.3 (3.8-10.6) k/uL RBC 4.74 (3.80-5.40) m/uL Hgb 12.7 (11.4-16.0) gm/dL Hct 40.1 (34.0-46.0) % MCV 84.6 (80.0-100.0) fL MCH 26.8 (25.0-35.0) pg MCHC 31.6 (31.0-37.0) g/dL RDW 12.8 (11.5-15.5) % Plt Count 275 (150-450) k/uL Neutrophils % 76 % Lymphocytes % 18 % Monocytes % 4 % Eosinophils % 2 % Basophils % 0 % Neutrophils # 6.3 (1.3-7.7) k/uL Lymphocytes # 1.5 (1.0-4.8) k/uL Monocytes # 0.3 (0-1.0) k/uL Eosinophils # 0.1 (0-0.7) k/uL Basophils # 0.0 (0-0.2) k/uL PT 9.9 (9.0-12.0) sec INR 1.0 (<1.2) APTT 22.6 (22.0-30.0) sec Sodium 139 (137-145) mmol/L Potassium 4.3 (3.5-5.1) mmol/L Chloride 106 (98-107) mmol/L Carbon Dioxide 24 (22-30) mmol/L Anion Gap 9 mmol/L BUN 19 H (7-17) mg/dL Creatinine 0.72 (0.52-1.04) mg/dL Est GFR (CKD-EPI)AfAm >90 (>60 ml/min/1.73 sqM) Est GFR (CKD-EPI)NonAf >90 (>60 ml/min/1.73 sqM) Glucose 98 (74-99) mg/dL Calcium 9.6 (8.4-10.2) mg/dL Magnesium 2.1 (1.6-2.3) mg/dL Total Bilirubin 0.3 (0.2-1.3) mg/dL AST 26 (14-36) U/L ALT 14 (4-34) U/L Alkaline Phosphatase 48 (38-126) U/L Troponin I (0.000-0.034) ng/mL Total Protein 7.8 (6.3-8.2) g/dL Albumin 4.8 (3.5-5.0) g/dL 05/19/20 Range/Units 16:02 WBC (3.8-10.6) k/uL RBC (3.80-5.40) m/uL Hgb (11.4-16.0) gm/dL Hct (34.0-46.0) % MCV (80.0-100.0) fL MCH (25.0-35.0) pg MCHC (31.0-37.0) g/dL RDW (11.5-15.5) % Plt Count (150-450) k/uL Neutrophils % % Lymphocytes % % Monocytes % % Eosinophils % % Basophils % % Neutrophils # (1.3-7.7) k/uL Lymphocytes # (1.0-4.8) k/uL Monocytes # (0-1.0) k/uL Eosinophils # (0-0.7) k/uL Basophils # (0-0.2) k/uL PT (9.0-12.0) sec INR (<1.2) APTT (22.0-30.0) sec Sodium (137-145) mmol/L Potassium (3.5-5.1) mmol/L Chloride (98-107) mmol/L Carbon Dioxide (22-30) mmol/L Anion Gap mmol/L BUN (7-17) mg/dL Creatinine (0.52-1.04) mg/dL Est GFR (CKD-EPI)AfAm (>60 ml/min/1.73 sqM) Est GFR (CKD-EPI)NonAf (>60 ml/min/1.73 sqM) Glucose (74-99) mg/dL Calcium (8.4-10.2) mg/dL Magnesium (1.6-2.3) mg/dL Total Bilirubin (0.2-1.3) mg/dL AST (14-36) U/L ALT (4-34) U/L Alkaline Phosphatase (38-126) U/L Troponin I <0.012 (0.000-0.034) ng/mL Total Protein (6.3-8.2) g/dL Albumin (3.5-5.0) g/dL Disposition Clinical Impression: Muscle strain of scapular region, Muscle spasm of back Disposition: HOME SELF-CARE Condition: Stable Instructions (If sedation given, give patient instructions): Back Pain (ED) Additional Instructions: Please return to the Emergency Department if symptoms worsen or any other concerns. Prescriptions: Orphenadrine [Norflex] 100 mg PO Q12H #20 tablet.er Ketorolac [Toradol] 10 mg PO Q8HR #15 tab Is patient prescribed a controlled substance at d/c from ED?: No Referrals: Chris Tompkins MD [Primary Care Provider] - 1-2 days Mike Varela DO [Doctor of Osteopathic Medicine] - 1-2 days Time of Disposition: 17:14
[2020-05-19 16:40] VITALS: RESP 16
[2020-05-19 16:46] LABS: Basophils % (A) 0 %; Eosinophils # (A) 0.1 k/uL (0-0.7); Eosinophils % (A) 2 %; HCT 40.1 % (34.0-46.0); HGB 12.7 gm/dL (11.4-16.0); Lymphocytes # (A) 1.5 k/uL (1.0-4.8); Lymphocytes % (A) 18 %; MCH 26.8 pg (25.0-35.0); MCHC 31.6 g/dL (31.0-37.0); MCV 84.6 fL (80.0-100.0); Mean Platelet Volume 9.4; Monocytes # (A) 0.3 k/uL (0-1.0); Monocytes % (A) 4 %; Neutrophils # (A) 6.3 k/uL (1.3-7.7); Neutrophils % (A) 76 %; Platelet Count 275 k/uL (150-450); RBC 4.74 m/uL (3.80-5.40); RDW 12.8 % (11.5-15.5); WBC 8.3 k/uL (3.8-10.6)
[2020-05-19 16:51] LABS: ALT 14 U/L (4-34); AST 26 U/L (14-36); African American GFR (CKD) >90 (>60 ml/min/1.73 sqM); Albumin 4.8 g/dL (3.5-5.0); Alkaline Phosphatase 48 U/L (38-126); Anion Gap 9 mmol/L; Blood Urea Nitrogen 19 mg/dL (7-17); Calcium 9.6 mg/dL (8.4-10.2); Carbon Dioxide 24 mmol/L (22-30); Chloride 106 mmol/L (98-107); Glucose 98 mg/dL (74-99); Magnesium 2.1 mg/dL (1.6-2.3); Non-African American GFR(CKD) >90 (>60 ml/min/1.73 sqM); Potassium 4.3 mmol/L (3.5-5.1); Sodium 139 mmol/L (137-145); Total Bilirubin 0.3 mg/dL (0.2-1.3); Total Protein 7.8 g/dL (6.3-8.2)
[2020-05-19 16:53] LABS: Partial Thromboplastin Time 22.6 sec (22.0-30.0); Prothrombin Time 9.9 sec (9.0-12.0)
[2020-05-19] MEDS ORDERED: ORPHENADRINE 30 MG/ML 2 ML VIAL IVP STA (17:09)
[2020-05-19] MEDS ORDERED: MORPHINE SULFATE 2 MG/ML SYRINGE IVP ONE (17:09)
[2020-05-19 17:57] VITALS: BP 142/88; PULSE 89; TEMP 97.6
== END 2020-05-19 17:57 | disposition home or self-care (01) ==
LOC: EC 13:40
DX: S46.812A Strain of other muscles, fascia and tendons at shoulder and upper arm level, left arm, initial encounter (principal); F41.9 Anxiety disorder, unspecified; F31.9 Bipolar disorder, unspecified; F17.290 Nicotine dependence, other tobacco product, uncomplicated; Z79.899 Other long term (current) drug therapy; Z79.891 Long term (current) use of opiate analgesic; Z88.8 Allergy status to other drugs, medicaments and biological substances; X58.XXXA Exposure to other specified factors, initial encounter
CPT/HCPCS: 36415; 93005; 80053; 83735; 84484; 85025; 85610; 85730; 71046; 99285; 96374; 96375 ×2; J2360; J3360; J1885

== ENCOUNTER → 2021-01-19 | Outpatient (CLI) | payer OTHER ==
[2021-01-19 18:58] LABS: African American GFR (CKD) 91.4 (60.0-200.0); Albumin 4.4 g/dL (3.80-4.90); Albumin/Globulin Ratio 1.91 (1.60-3.17); BUN/Creat Ratio 37.78 Ratio (12.00-20.00); Calcium 9.1 mg/dL (8.7-10.3); Globulin 2.3 g/dL (1.6-3.3); Non-African American GFR(CKD) 78.9 (60.0-200.0); Potassium 3.9 mmol/L (3.5-5.5); Total Bilirubin 0.2 mg/dL (0.3-1.2); Total Protein 6.7 g/dL (6.2-8.2)
[2021-01-19 19:05] LABS: T4, Free (Free Thyroxine) 0.8 ng/dL (0.80-1.80)
== END | disposition home or self-care (01) ==
LOC: LABWHC1 12:36
PROVIDERS: ATTEND Internal Medicine
DX: R63.5 Abnormal weight gain (principal)
CPT/HCPCS: 36415; 80053; 84439; 84443; 84481

== ENCOUNTER 2021-05-08 00:06 | Emergency (ER) | payer OTHER ==
[2021-05-08] MEDS ORDERED: ONDANSETRON 4 MG/2 ML VIAL IVP STA (00:39)
[2021-05-08] MEDS ORDERED: LORazepam 2 MG/ML INJ IV STA (00:40)
--- NOTE | 2021-05-08 00:44 | ED ---
Anxiety HPI - General Chief Complaint: Anxiety Stated Complaint: Panic attack EDDIE Time Seen by Provider: 05/08/21 00:29 Source: patient, RN notes reviewed, old records reviewed Mode of arrival: ambulatory Limitations: no limitations - History of Present Illness Initial Comments: This is a 40-year-old female to the emergency or today. Patient coming in with significant anxiety reaction anxiety attack panic attack. History of anxiety disorder. History of generalized anxiety unknown provoking cause. Patient does admit to increased stress. Otherwise no complaints of headache chest pain shortness with abdominal pain patient is crying uncontrollably secondary to severity of anxiety MD Complaint: anxiety, heart racing, shortness of breath -: hour(s) Symptoms: dyspnea, palpitations Place: home Previous History of Same: Yes Severity: severe Quality: similar to prior episodes Provoking factors: emotional stress, work/job stress Improves With: nothing Worsens With: nothing Associated symptoms: palpitations, diaphoresis, nausea/vomiting - Related Data Home Medications: Home Medications Medication Instructions Recorded Confirmed Amitriptyline HCl 25 mg PO HS 05/05/20 05/19/20 Buprenorphine HCl/Naloxone HCl 0.5 film SL BID 05/05/20 05/19/20 [Suboxone 12 mg-3 mg Sl Film] ARIPiprazole [Abilify] 15 mg PO DAILY 05/19/20 05/19/20 LORazepam [Ativan] 1 mg PO Q8H PRN 05/19/20 05/19/20 busPIRone HCl [Buspar] 20 mg PO TID 05/19/20 05/19/20 lamoTRIgine [LaMICtal] 25 mg PO HS 05/19/20 05/19/20 Previous Rx's Medication Instructions Recorded Ketorolac [Toradol] 10 mg PO Q8HR #15 tab 05/19/20 Orphenadrine [Norflex] 100 mg PO Q12H #20 tablet.er 05/19/20 Allergies/Adverse Reactions: Allergies Allergy/AdvReac Type Severity Reaction Status Date / Time sumatriptan [From Imitrex] Allergy Swelling Verified 05/08/21 00:16 Review of Systems ROS Statement: Those systems with pertinent positive or pertinent negative responses have been documented in the HPI. ROS Other: All systems not noted in ROS Statement are negative. Past Medical History Additional Past Medical History / Comment(s): anemia 2 blood transfusions bood disorder hep c History of Any Multi-Drug Resistant Organisms: None Reported Past Surgical History: Section, Hysterectomy, Tonsillectomy Past Anesthesia/Blood Transfusion Reactions: No Reported Reaction Past Psychological History: Anxiety, Bipolar Smoking Status: Current every day smoker, Vaper Past Alcohol Use History: Rare Past Drug Use History: Marijuana, Opiates General Exam Limitations: no limitations General appearance: alert, in no apparent distress Head exam: Present: atraumatic, normocephalic, normal inspection Eye exam: Present: normal appearance, PERRL, EOMI. Absent: scleral icterus, conjunctival injection, periorbital swelling ENT exam: Present: normal exam, mucous membranes moist Neck exam: Present: normal inspection. Absent: tenderness, meningismus, lymphadenopathy Respiratory exam: Present: normal lung sounds bilaterally. Absent: respiratory distress, wheezes, rales, rhonchi, stridor Cardiovascular Exam: Present: regular rate, normal rhythm, normal heart sounds. Absent: systolic murmur, diastolic murmur, rubs, gallop, clicks GI/Abdominal exam: Present: soft, normal bowel sounds. Absent: distended, tenderness, guarding, rebound, rigid Extremities exam: Present: normal inspection, full ROM, normal capillary refill. Absent: tenderness, pedal edema, joint swelling, calf tenderness Back exam: Present: normal inspection Neurological exam: Present: alert, oriented X3, CN II-XII intact Psychiatric exam: Present: normal affect, normal mood Skin exam: Present: warm, dry, intact, normal color. Absent: rash Course Vital Signs 05/08/21 05/08/21 00:11 01:26 Temperature 97.5 F L Pulse Rate 86 110 H Respiratory 20 22 Rate Blood Pressure 203/113 166/114 O2 Sat by Pulse 96 96 Oximetry - Reevaluation(s) Reevaluation #1: 05/08/21 01:36 Record is reviewed Reevaluation #2: 05/08/21 01:36 Patient symptoms are significantly improved Reevaluation #3: 05/08/21 01:36 Patient regarding findings, questions answered Medical Decision Making - Medical Decision Making 1 female DF for evaluation patient has severe anxiety reaction. But blood pressure heart rate vital signs have improved here in the ER symptoms improved here in the ER patient's okay for discharge - Lab Data Result diagrams: 05/08/21 01:26 Lab Results 05/08/21 Range/Units 01:26 WBC 11.4 H (3.8-10.6) k/uL RBC 5.06 (3.80-5.40) m/uL Hgb 13.8 (11.4-16.0) gm/dL Hct 42.3 (34.0-46.0) % MCV 83.6 (80.0-100.0) fL MCH 27.3 (25.0-35.0) pg MCHC 32.6 (31.0-37.0) g/dL RDW 12.6 (11.5-15.5) % Plt Count 357 (150-450) k/uL MPV 9.5 Neutrophils % 60 % Lymphocytes % 31 % Monocytes % 5 % Eosinophils % 2 % Basophils % 0 % Neutrophils # 6.8 (1.3-7.7) k/uL Lymphocytes # 3.5 (1.0-4.8) k/uL Monocytes # 0.5 (0-1.0) k/uL Eosinophils # 0.3 (0-0.7) k/uL Basophils # 0.0 (0-0.2) k/uL - EKG Data -: EKG Interpreted by Me (EKG sinus tachycardia 122 DE 138 QRS 78 QTc 607) Disposition Clinical Impression: Panic attack, Panic disorder, Acute anxiety Disposition: HOME SELF-CARE Condition: Fair Instructions (If sedation given, give patient instructions): Generalized Anxiety Disorder (ED) Is patient prescribed a controlled substance at d/c from ED?: No Referrals: Nonstaff,Physician [Primary Care Provider] - 1-2 days
[2021-05-08] MEDS ORDERED: PROCHLORPERAZINE INJ 10 MG/2 ML VIAL IVP STA (01:02)
[2021-05-08] MEDS: SODIUM CHLORIDE 0.9% 1,000 ML IV STA ×2 (01:20→02:37)
[2021-05-08 01:33] LABS: Basophils % (A) 0 %; Eosinophils # (A) 0.3 k/uL (0-0.7); Eosinophils % (A) 2 %; HCT 42.3 % (34.0-46.0); HGB 13.8 gm/dL (11.4-16.0); Lymphocytes # (A) 3.5 k/uL (1.0-4.8); Lymphocytes % (A) 31 %; MCH 27.3 pg (25.0-35.0); MCHC 32.6 g/dL (31.0-37.0); MCV 83.6 fL (80.0-100.0); Mean Platelet Volume 9.5; Monocytes # (A) 0.5 k/uL (0-1.0); Monocytes % (A) 5 %; Neutrophils # (A) 6.8 k/uL (1.3-7.7); Neutrophils % (A) 60 %; Platelet Count 357 k/uL (150-450); RBC 5.06 m/uL (3.80-5.40); RDW 12.6 % (11.5-15.5); WBC 11.4 k/uL (3.8-10.6)
[2021-05-08 01:44] LABS: ALT 36 U/L (4-34); AST 40 U/L (14-36); African American GFR (CKD) >90 (>60 ml/min/1.73 sqM); Alkaline Phosphatase 88 U/L (38-126); Anion Gap 14 mmol/L; Blood Urea Nitrogen 16 mg/dL (7-17); Calcium 10.3 mg/dL (8.4-10.2); Carbon Dioxide 18 mmol/L (22-30); Chloride 106 mmol/L (98-107); Glucose 156 mg/dL (74-99); Magnesium 1.9 mg/dL (1.6-2.3); Non-African American GFR(CKD) >90 (>60 ml/min/1.73 sqM); Potassium 3.7 mmol/L (3.5-5.1); Sodium 138 mmol/L (137-145); Total Bilirubin 0.7 mg/dL (0.2-1.3); Total Protein 8.2 g/dL (6.3-8.2)
[2021-05-08 01:48] LABS: Partial Thromboplastin Time 23.7 sec (22.0-30.0); Prothrombin Time 10.9 sec (9.0-12.0)
--- NOTE | 2021-05-08 02:02 | XR ---
EXAMINATION TYPE: XR chest 1V portable DATE OF EXAM: 05/08/2021 COMPARISON: 05/19/2020 HISTORY: Pain and congestion TECHNIQUE: Single view FINDINGS: Heart and mediastinum are normal. Lungs are clear. Diaphragm is normal. Bony thorax appears normal. IMPRESSION: Normal chest. No change.
[2021-05-08] MEDS ORDERED: DIAZEPAM 5 MG/ML 2 ML INJ IVP STA (02:11)
[2021-05-08] MEDS ORDERED: cloNIDine 0.2 MG/24HR PATCH TRANSDERM SCH (02:15)
[2021-05-08 02:29] VITALS: RESP 18
[2021-05-08 02:41] VITALS: BP 113/75; PULSE 80; TEMP 98.6
== END 2021-05-08 02:44 | disposition home or self-care (01) ==
LOC: EC 00:06
DX: F41.0 Panic disorder [episodic paroxysmal anxiety] (principal); F31.9 Bipolar disorder, unspecified; F17.200 Nicotine dependence, unspecified, uncomplicated; F12.90 Cannabis use, unspecified, uncomplicated; Z90.710 Acquired absence of both cervix and uterus; Z90.89 Acquired absence of other organs
CPT/HCPCS: 36415; 71045; 80053; 83735; 84100; 84484; 85025; 85610; 85730; 93005; 96374; 96375; 99285

== ENCOUNTER 2021-06-07 17:51 | Emergency (ER) | payer OTHER ==
[2021-06-07 18:03] VITALS: TEMP 97.8
[2021-06-07] MEDS ORDERED: cloNIDine 0.2 MG/24HR PATCH TRANSDERM SCH (23:45)
[2021-06-07] MEDS ORDERED: LORazepam 2 MG/ML INJ IM STA (23:59)
--- NOTE | 2021-06-08 | ED ---
Anxiety HPI - General Chief Complaint: Chest Pain Stated Complaint: Heart racing/pain in left arm/head/neck Time Seen by Provider: 06/07/21 23:45 Source: patient, RN notes reviewed, old records reviewed Mode of arrival: ambulatory - History of Present Illness Initial Comments: This is a 40-year-old female to the emergency department for evaluation. Patient since today for evaluation regards to severe anxiety. Anxiety throughout yesterday and anxiety and is presenting here to the ER tonight. Patient states anxiety started about 2 days after she last took anxiety medication. Patient has no current anxiety medication at home in her current primary care doctor. She began to have chest pain numbness tingling and some shortness of breath. No other new complaints no fevers cough or congestion. MD Complaint: anxiety, heart racing -: days(s) Symptoms: dyspnea, chest pain, palpitations Place: home Previous History of Same: Yes Severity: moderate Quality: worsening Provoking factors: medication change Improves With: nothing Worsens With: nothing, medication Associated symptoms: shortness of breath, palpitations - Related Data Home Medications: Home Medications Medication Instructions Recorded Confirmed Amitriptyline HCl 25 mg PO HS 05/05/20 05/19/20 Buprenorphine HCl/Naloxone HCl 0.5 film SL BID 05/05/20 05/19/20 [Suboxone 12 mg-3 mg Sl Film] ARIPiprazole [Abilify] 15 mg PO DAILY 05/19/20 05/19/20 LORazepam [Ativan] 1 mg PO Q8H PRN 05/19/20 05/19/20 busPIRone HCl [Buspar] 20 mg PO TID 05/19/20 05/19/20 lamoTRIgine [LaMICtal] 25 mg PO HS 05/19/20 05/19/20 Previous Rx's Medication Instructions Recorded Ketorolac [Toradol] 10 mg PO Q8HR #15 tab 05/19/20 Orphenadrine [Norflex] 100 mg PO Q12H #20 tablet.er 05/19/20 LORazepam [Ativan] 2 mg PO TID 3 Days #9 tab 06/08/21 Allergies/Adverse Reactions: Allergies Allergy/AdvReac Type Severity Reaction Status Date / Time sumatriptan [From Imitrex] Allergy Swelling Verified 06/07/21 18:03 Review of Systems ROS Statement: Those systems with pertinent positive or pertinent negative responses have been documented in the HPI. ROS Other: All systems not noted in ROS Statement are negative. Past Medical History Additional Past Medical History / Comment(s): anemia 2 blood transfusions hoyos d disorder hep c History of Any Multi-Drug Resistant Organisms: None Reported Past Surgical History: Section, Hysterectomy, Tonsillectomy Past Anesthesia/Blood Transfusion Reactions: No Reported Reaction Past Psychological History: Anxiety, Bipolar Smoking Status: Current every day smoker, Vaper Past Alcohol Use History: Rare Past Drug Use History: Marijuana, Opiates General Exam Limitations: no limitations General appearance: alert, in no apparent distress Head exam: Present: atraumatic, normocephalic, normal inspection Eye exam: Present: normal appearance, PERRL, EOMI. Absent: scleral icterus, conjunctival injection, periorbital swelling ENT exam: Present: normal exam, mucous membranes moist Neck exam: Present: normal inspection. Absent: tenderness, meningismus, lymphadenopathy Respiratory exam: Present: normal lung sounds bilaterally. Absent: respiratory distress, wheezes, rales, rhonchi, stridor Cardiovascular Exam: Present: regular rate, normal rhythm, normal heart sounds. Absent: systolic murmur, diastolic murmur, rubs, gallop, clicks GI/Abdominal exam: Present: soft, normal bowel sounds. Absent: distended, tenderness, guarding, rebound, rigid Extremities exam: Present: normal inspection, full ROM, normal capillary refill. Absent: tenderness, pedal edema, joint swelling, calf tenderness Back exam: Present: normal inspection Neurological exam: Present: alert, oriented X3, CN II-XII intact Psychiatric exam: Present: normal affect, normal mood Skin exam: Present: warm, dry, intact, normal color. Absent: rash Course Vital Signs 06/07/21 06/07/21 06/08/21 18:00 23:48 01:06 Temperature 97.8 F Pulse Rate 81 72 80 Respiratory 20 17 17 Rate Blood Pressure 188/138 175/82 136/82 O2 Sat by Pulse 99 99 99 Oximetry 06/08/21 02:01 Temperature Pulse Rate 77 Respiratory 16 Rate Blood Pressure 127/84 O2 Sat by Pulse 96 Oximetry - Reevaluation(s) Reevaluation #1: Medical record is reviewed Patient symptoms are significantly improved here in the ER Patient informed results and questions answered Medical Decision Making - Medical Decision Making 40 female to the emergency department for severe anxiety, anxiety is relieved here in the emergency department, patient feels well for discharge home - EKG Data -: EKG Interpreted by Me (EKG shows sinus rhythm 90 pr 152 QRS 86 QTc 442) Disposition Clinical Impression: Acute anxiety Disposition: HOME SELF-CARE Condition: Good Instructions (If sedation given, give patient instructions): Anxiety (ED) Prescriptions: LORazepam [Ativan] 2 mg PO TID 3 Days #9 tab Is patient prescribed a controlled substance at d/c from ED?: No Referrals: Jay Monge MD [Primary Care Provider] - 1-2 days
[2021-06-08 02:02] VITALS: BP 127/84; PULSE 77; RESP 16
== END 2021-06-08 02:02 | disposition home or self-care (01) ==
LOC: EC 17:51
DX: F41.9 Anxiety disorder, unspecified (principal); F31.9 Bipolar disorder, unspecified; F17.200 Nicotine dependence, unspecified, uncomplicated; F12.90 Cannabis use, unspecified, uncomplicated; Z90.710 Acquired absence of both cervix and uterus
CPT/HCPCS: 99284; 96372; 93005; J2060

== ENCOUNTER 2022-04-16 12:47 | Emergency (ER) | payer OTHER ==
[2022-04-16] MEDS ORDERED: LORazepam 1 MG TAB PO STA (15:56)
[2022-04-16] MEDS ORDERED: ACETAMINOPHEN TAB 500 MG TAB PO STA (15:56)
--- NOTE | 2022-04-16 16:05 | ED ---
General Adult HPI - General Chief complaint: Psychiatric Symptoms Stated complaint: Panic attack Time Seen by Provider: 04/16/22 15:45 Source: patient, family, RN notes reviewed, old records reviewed Mode of arrival: ambulatory Limitations: no limitations - History of Present Illness Initial comments: Patient is a 41-year-old female with past medical history remarkable for Suboxone use due to prior drug abuse, anxiety, bipolar, panic attacks, hypertension, thyroid disorder who presents emergency Department complaining of a panic attack. She is no cervical asking months that she is having worsening depression. A family member a few months ago. Her son and his girlfriend who is had an argument with her earlier this morning which caused her to have her panic attack. They're leaving the area. She states she kicked a box and is complaining of left foot pain in addition to her typical panic attack symptoms including some mild shortness of breath as well as generalized chest discomfort that is nonfocal. States these are typical symptoms for her panic attack. She is been waiting in the waiting room for multiple hours, and states her symptoms are somewhat improved at this time. She is endorsing worsening insomnia, depression, but denies any visual or auditory hallucinations. Denies any homicidal ideations, attempts, plans. Denies any suicidal ideations, attempts, plans. Presents today for further evaluation for panic attacks. Did attempt to take her home Klonopin for her panic attacks, with minimal improvement. Does not have a current PCP. Does not have a current therapist or psychiatrist. Presents for further evaluation at this time. - Related Data Home Medications Medication Instructions Recorded Confirmed Albuterol Inhaler [Ventolin Hfa 2 puff INHALATION RT-QID PRN 04/16/22 04/16/22 Inhaler] Buprenorphine HCl/Naloxone HCl 1 film SL BID 04/16/22 04/16/22 [Suboxone 8 mg-2 mg Sl Film] Ergocalciferol [Vitamin D2 (1250 1,250 mcg PO Q7D 04/16/22 04/16/22 Mcg = 64565 Iu)] Furosemide [Lasix] 20 mg PO DAILY 04/16/22 04/16/22 Levothyroxine Sodium [Synthroid] 25 mcg PO DAILY 04/16/22 04/16/22 Omeprazole [PriLOSEC] 20 mg PO DAILY 04/16/22 04/16/22 cloNIDine HCL [Catapres] 0.1 mg PO BID 04/16/22 04/16/22 clonazePAM [KlonoPIN] 1 mg PO BID PRN 04/16/22 04/16/22 Allergies Allergy/AdvReac Type Severity Reaction Status Date / Time amitriptyline Allergy Rash/Hives Verified 04/16/22 18:46 Review of Systems ROS Statement: Those systems with pertinent positive or pertinent negative responses have been documented in the HPI. Review of Systems: CONST: Denies fever EYES: Denies blurry vision ENT: Denies nasal congestion C/V: Denies Chest pain RESP: Denies shortness of breath GI: Denies abdominal pain : Denies dysuria SKIN: Denies rash. MSK: Endorses left foot pain NEURO: Denies headache PSYCH: Denies suicidal and homicidal ideations/plans/attempts. Denies visual or auditory hallucinations. sHe endorses panic attack ROS Other: All systems not noted in ROS Statement are negative. Past Medical History Additional Past Medical History / Comment(s): anemia 2 blood transfusions bood disorder hep c History of Any Multi-Drug Resistant Organisms: None Reported Past Surgical History: Section, Hysterectomy, Tonsillectomy Past Anesthesia/Blood Transfusion Reactions: No Reported Reaction Past Psychological History: Anxiety, Bipolar Smoking Status: Current every day smoker, Vaper Past Alcohol Use History: Rare Past Drug Use History: Marijuana, Opiates General Exam - General Exam Comments Initial Comments: General: Appears in no acute distress. HEAD: Normal with no signs of head trauma. EYES: PERRLA, EOMI, conjunctiva normal, no discharge. ENT: Hearing grossly intact, normal oropharynx. RESPIRATORY: Clear breath sounds bilaterally. No wheezes, rales, or rhonchi. C/V: Regular rate and rhythm. S1 and S2 auscultated, no edema, peripheral pulses 2+ and intact throughout ABD: Abd is soft, nontender, nondistended EXT: Normal range of motion, no obvious deformity. Tenderness to palpation over the dorsal aspect of her left fifth through third metatarsals as well as mild tenderness to palpation over the anterior aspect of her ankle. No malleoli tenderness to palpation. Patient is able to walk. SKIN: No rashes or lesions observed on exposed skin. NEURO: Alert and oriented 4. Limitations: no limitations Course Vital Signs 04/16/22 04/16/22 13:22 19:44 Temperature 98.1 F 98.0 F Pulse Rate 84 50 L Respiratory 20 18 Rate Blood Pressure 132/94 114/61 O2 Sat by Pulse 99 97 Oximetry Medical Decision Making - Medical Decision Making Based on the patient's presentation and physical exam, does appear she is having a panic attack that is improving. Vital signs within normal limits. I will provide her with a dose of Ativan as well as Tylenol for her left foot and ankle pain. I will also obtain a chest x-ray as well as screening EKG for her symptoms. We will obtain x-rays of left foot. I discussed at length that I do not believe she is a danger to herself or others. She has decision-making capability. I do not believe that she must be petitioned, and kept against her will to speak with psychiatry but I did offer EPS services if they are able to speak with her while she is here. She is no follow-up currently. She was in agreement this plan. She states she is feeling improved, but I do believe she may benefit from speaking with EPS and obtaining a good follow-up plan. EPS will be notified when she is medically cleared. We will obtain a screening BAT and UDS per policy. She'll not be placed in green scrubs as she is free to leave at any time. She is not suicidal. She is not homicidal. She is not a danger to herself or others. She brought herself here for evaluation for panic attack. Patient's EKG shows no signs of acute ischemia. Patient's chest x-ray shows no acute cardiopulmonary process. Ankle x-ray showed no acute injury. The BAT is 0. UDS is positive for marijuana, benzos which is known. Vital signs remained within normal limits. At this time patient is medically cleared for evaluate him by EPS. Disposition is pending psychiatric evaluation. Is a voluntary evaluation. Patient was evaluated by EPS, and was cleared for discharge home. Will be given follow-up information for outpatient therapy services. Patient was in agreement this plan. She was discharged home in good condition. - Lab Data Lab Results 04/16/22 Range/Units 16:22 Urine Opiates Screen Not Detected (NotDetected) Ur Oxycodone Screen Not Detected (NotDetected) Urine Methadone Screen Not Detected (NotDetected) Ur Propoxyphene Screen Not Detected (NotDetected) Ur Barbiturates Screen Not Detected (NotDetected) U Tricyclic Antidepress Not Detected (NotDetected) Ur Phencyclidine Scrn Not Detected (NotDetected) Ur Amphetamines Screen Not Detected (NotDetected) U Methamphetamines Scrn Not Detected (NotDetected) U Benzodiazepines Scrn Detected H (NotDetected) Urine Cocaine Screen Not Detected (NotDetected) U Marijuana (THC) Screen Detected H (NotDetected) - EKG Data -: EKG Interpreted by Me EKG Comments: 12-lead Electrocardiogram Interpretation Note EKG was reviewed and interpreted by myself. 12-lead ECG performed at 1728 is interpreted by me as revealing sinus bradycardia at a rate of 46 beats per minute. [place] is normal. VA interval is 152 ms, QRS durations 103 ms, QTc is 412 ms.. There were no ST or T wave abnormalities to suggest myocardial ischemia or injury. R wave progression across the precordium was satisfactory. By my interpretation this EKG is non-diagnostic for acute ischemia. Disposition Clinical Impression: Anxiety, Left foot pain Disposition: HOME SELF-CARE Condition: Good Additional Instructions: follow up instructions for outpatient therapy from EPS. Is patient prescribed a controlled substance at d/c from ED?: No Referrals: Fernando Oliver MD [Primary Care Provider] - 1-2 days
[2022-04-16 16:50] LABS: Amphetamine Screen,Urine Not Detected (NotDetected); Barbiturate Screen,Urine Not Detected (NotDetected); Benzodiazepines Screen,Urine Detected (NotDetected); Cocaine Screen,Urine Not Detected (NotDetected); Methadone Screen, Urine Not Detected (NotDetected); Opiate Screen,Urine Not Detected (NotDetected); Oxycodone Screen, Urine Not Detected (NotDetected); Phencyclidine Screen,Urine Not Detected (NotDetected); Tricyclic Antidepressant,Urine Not Detected (NotDetected); Urn Cannabinoid Scrn Detected (NotDetected)
--- NOTE | 2022-04-16 16:50 | XR ---
EXAMINATION TYPE: XR chest 1V portable DATE OF EXAM: 04/16/2022 COMPARISON: 05/08/2021 HISTORY: Panic attack. TECHNIQUE: FINDINGS: Heart and mediastinum are normal. Lungs are clear. Diaphragm is normal. Bony thorax is inta ct. The pulmonary vascularity is normal. IMPRESSION: Normal chest. No change.
--- NOTE | 2022-04-16 16:51 | XR ---
EXAMINATION TYPE: XR foot complete LT DATE OF EXAM: 04/16/2022 COMPARISON: NONE HISTORY: Pain TECHNIQUE: 3 views FINDINGS: Metatarsals are intact. I see no fracture nor dislocation. Joint spaces are normal. IMPRESSION: Negative left foot exam. No fracture.
--- NOTE | 2022-04-16 16:53 | XR ---
EXAMINATION TYPE: XR ankle complete LT DATE OF EXAM: 04/16/2022 COMPARISON: NONE HISTORY: Pain TECHNIQUE: 3 views FINDINGS: Ankle mortise is anatomic. I see no fracture nor dislocation. Joint spaces are normal. IMPRESSION: Negative left ankle exam.
[2022-04-16] MEDS ORDERED: ALPRAZolam 0.5 MG TAB PO STA (17:44)
[2022-04-16 19:45] VITALS: BP 114/61; PULSE 50; RESP 18; TEMP 98
== END 2022-04-16 19:45 | disposition home or self-care (01) ==
LOC: EC 12:47
DX: F41.9 Anxiety disorder, unspecified (principal); M79.672 Pain in left foot; Z88.8 Allergy status to other drugs, medicaments and biological substances
CPT/HCPCS: 71045; 80306; 82075; 93005; 99284

== ENCOUNTER 2022-05-22 22:02 | Emergency (ER) | payer OTHER ==
[2022-05-22 22:32] VITALS: RESP 18; TEMP 98
[2022-05-22 23:56] VITALS: BP 132/81; PULSE 52
--- NOTE | 2022-05-23 00:21 | XR ---
EXAMINATION TYPE: XR lumbosacral spine min 4V DATE OF EXAM: 05/22/2022 COMPARISON: NONE HISTORY: Fall. Pain TECHNIQUE: 5 views FINDINGS: The lumbar vertebrae have normal alignment. Disc spaces are narrowed at L4-5 and L5-S1. No compression fracture. Sacroiliac joints are intact. IMPRESSION: Degenerative disc changes in the lower lumbar spine. No fracture.
--- NOTE | 2022-05-23 00:22 | XR ---
EXAMINATION TYPE: XR sacrum coccyx DATE OF EXAM: 05/22/2022 COMPARISON: NONE HISTORY: Fall. Pain TECHNIQUE: 3 views FINDINGS: No compression fracture. Sacroiliac joints are intact. The sacrum and coccyx segments have normal alignment. IMPRESSION: Normal sacrum and coccyx exam.
[2022-05-23] MEDS ORDERED: KETOROLAC 15 MG/ML 1 ML VIAL IM STA (00:27)
[2022-05-23] MEDS ORDERED: CYCLOBENZAPRINE 10 MG TAB PO STA (00:27)
--- NOTE | 2022-05-23 00:54 | ED ---
Fall HPI - General Chief Complaint: Fall Stated Complaint: Fall,Tailbone injury Time Seen by Provider: 05/22/22 22:35 Source: patient Mode of arrival: ambulatory - History of Present Illness Initial Comments: 41-year-old female past history of anxiety, narcotic abuse on Suboxone who presents emergency room and after she sustained a fall. Reports that she missed the bottom step and fell down onto her tailbone. Incident happened just prior to hospital arrival. Is reporting the lower back pain as well as coccyx pain. She took a Suboxone earlier this morning. Denies utilizing any other medications for symptoms. Denies any saddle anesthesia. No bowel or bladder incontinence. Patient has been able to ambulate without difficulty. No other alleviating, story reader modifying factors - Related Data Home Medications Medication Instructions Recorded Confirmed Albuterol Inhaler [Ventolin Hfa 2 puff INHALATION RT-QID PRN 04/16/22 04/16/22 Inhaler] Buprenorphine HCl/Naloxone HCl 1 film SL BID 04/16/22 04/16/22 [Suboxone 8 mg-2 mg Sl Film] Ergocalciferol [Vitamin D2 (1250 1,250 mcg PO Q7D 04/16/22 04/16/22 Mcg = [id number] Iu)] Furosemide [Lasix] 20 mg PO DAILY 04/16/22 04/16/22 Levothyroxine Sodium [Synthroid] 25 mcg PO DAILY 04/16/22 04/16/22 Omeprazole [PriLOSEC] 20 mg PO DAILY 04/16/22 04/16/22 cloNIDine HCL [Catapres] 0.1 mg PO BID 04/16/22 04/16/22 clonazePAM [KlonoPIN] 1 mg PO BID PRN 04/16/22 04/16/22 Previous Rx's Medication Instructions Recorded Cyclobenzaprine [Flexeril] 10 mg PO TID PRN #15 tab 05/23/22 Ketorolac [Toradol] 10 mg PO Q8HR #15 tab 05/23/22 Allergies Allergy/AdvReac Type Severity Reaction Status Date / Time amitriptyline Allergy Rash/Hives Verified 05/22/22 22:28 Review of Systems ROS Statement: Those systems with pertinent positive or pertinent negative responses have been documented in the HPI. ROS Other: All systems not noted in ROS Statement are negative. Past Medical History Additional Past Medical History / Comment(s): anemia 2 blood transfusions bood disorder hep c History of Any Multi-Drug Resistant Organisms: None Reported Past Surgical History: Section, Hysterectomy, Tonsillectomy Past Anesthesia/Blood Transfusion Reactions: No Reported Reaction Past Psychological History: Anxiety, Bipolar Smoking Status: Current every day smoker, Vaper Past Alcohol Use History: Rare Past Drug Use History: Marijuana, Opiates General Exam Limitations: no limitations General appearance: alert, in no apparent distress Neck exam: Present: normal inspection. Absent: tenderness, meningismus, lymphadenopathy Respiratory exam: Present: normal lung sounds bilaterally. Absent: respiratory distress, wheezes, rales, rhonchi, stridor Cardiovascular Exam: Present: regular rate, normal rhythm, normal heart sounds. Absent: systolic murmur, diastolic murmur, rubs, gallop, clicks GI/Abdominal exam: Present: soft, normal bowel sounds. Absent: distended, tenderness, guarding, rebound, rigid Back exam: Present: paraspinal tenderness (L2-L5), other (coccyx and left sided SI joint tenderness. 5/5 muscle strength bilateral lower extremities) Neurological exam: Present: alert, oriented X3, CN II-XII intact Course Vital Signs 05/22/22 05/22/22 22:28 23:54 Temperature 98 F Pulse Rate 60 52 L Respiratory 18 18 Rate Blood Pressure 137/98 132/81 O2 Sat by Pulse 98 97 Oximetry Medical Decision Making - Medical Decision Making Upon arrival patient placed into room 4. Thorough history and physical exam was performed. X-rays obtained of the patient's lumbar spine and coccyx which demonstrate no acute fractures. She was given a dose of Toradol and Flexeril in the emergency department. I did request to observe the patient to see if she has symptom improvement however patient would like to be discharged right after medication administration. She'll be prescribed Toradol and Flexeril at home. Continue taking her Suboxone as directed. Follow up with her doctor to 4 days and return for any worsening symptoms. Patient agreeable to plan to discharge home in stable condition Disposition Clinical Impression: Fall, Back pain Disposition: HOME SELF-CARE Condition: Stable Instructions (If sedation given, give patient instructions): Coccyx Injury (ED) Additional Instructions: Please take the medications as directed. Follow up with your doctor and return for any new or worsening symptoms Prescriptions: Cyclobenzaprine [Flexeril] 10 mg PO TID PRN #15 tab PRN Reason: Muscle Spasm Ketorolac [Toradol] 10 mg PO Q8HR #15 tab Is patient prescribed a controlled substance at d/c from ED?: No Referrals: Fernando Oliver MD [Primary Care Provider] - 1-2 days Time of Disposition: 00:54
== END 2022-05-23 01:05 | disposition home or self-care (01) ==
LOC: EC 22:02
DX: M54.50 Low back pain, unspecified (principal); F17.200 Nicotine dependence, unspecified, uncomplicated; F41.9 Anxiety disorder, unspecified; F12.90 Cannabis use, unspecified, uncomplicated; Z88.0 Allergy status to penicillin; F31.9 Bipolar disorder, unspecified; W10.9XXA Fall (on) (from) unspecified stairs and steps, initial encounter
CPT/HCPCS: 72110; 72220; 99284; 96372; J1885

== ENCOUNTER 2022-07-13 20:44 | Emergency (ER) | payer OTHER ==
[2022-07-13 21:10] VITALS: RESP 18
[2022-07-14] MEDS ORDERED: ONDANSETRON ODT 4 MG TAB PO STA (00:13)
[2022-07-14] MEDS ORDERED: IBUPROFEN 600 MG TAB PO STA (00:13)
--- NOTE | 2022-07-14 00:13 | ED ---
General Adult HPI - General Chief complaint: Urogenital Stated complaint: Urogenital Time Seen by Provider: 07/13/22 23:48 Source: patient, RN notes reviewed Mode of arrival: ambulatory Limitations: no limitations - History of Present Illness Initial comments: 41-year-old female presents to the emergency Department with complaints of urinary discomfort. States she has had painful urination and urinary frequency for the past 2 days. Was recently treated with amoxicillin for a UTI, but reports return of symptoms. Complains of bilateral flank discomfort and mild nausea. Denies fever, chills, chest pain, shortness of breath, abdominal pain, vomiting, diarrhea, or dysuria. No chance of . - Related Data Home Medications Medication Instructions Recorded Confirmed Albuterol Inhaler [Ventolin Hfa 2 puff INHALATION RT-QID PRN 04/16/22 04/16/22 Inhaler] Buprenorphine HCl/Naloxone HCl 1 film SL BID 04/16/22 04/16/22 [Suboxone 8 mg-2 mg Sl Film] Ergocalciferol [Vitamin D2 (1250 1,250 mcg PO Q7D 04/16/22 04/16/22 Mcg = 70288 Iu)] Furosemide [Lasix] 20 mg PO DAILY 04/16/22 04/16/22 Levothyroxine Sodium [Synthroid] 25 mcg PO DAILY 04/16/22 04/16/22 Omeprazole [PriLOSEC] 20 mg PO DAILY 04/16/22 04/16/22 cloNIDine HCL [Catapres] 0.1 mg PO BID 04/16/22 04/16/22 clonazePAM [KlonoPIN] 1 mg PO BID PRN 04/16/22 04/16/22 Previous Rx's Medication Instructions Recorded Cyclobenzaprine [Flexeril] 10 mg PO TID PRN #15 tab 05/23/22 Ketorolac [Toradol] 10 mg PO Q8HR #15 tab 05/23/22 Cephalexin [Keflex] 500 mg PO Q12HR 7 Days #14 cap 07/14/22 Allergies Allergy/AdvReac Type Severity Reaction Status Date / Time amitriptyline Allergy Rash/Hives Verified 05/22/22 22:28 sumatriptan [From Imitrex] Allergy Anaphylaxis Verified 07/13/22 21:11 Review of Systems ROS Statement: Those systems with pertinent positive or pertinent negative responses have been documented in the HPI. ROS Other: All systems not noted in ROS Statement are negative. Past Medical History Additional Past Medical History / Comment(s): anemia 2 blood transfusions bood disorder hep c History of Any Multi-Drug Resistant Organisms: None Reported Past Surgical History: Section, Hysterectomy, Tonsillectomy Past Anesthesia/Blood Transfusion Reactions: No Reported Reaction Past Psychological History: Anxiety, Bipolar Smoking Status: Current every day smoker, Vaper Past Alcohol Use History: Rare Past Drug Use History: Marijuana, Opiates General Exam Limitations: no limitations General appearance: alert, in no apparent distress Respiratory exam: Present: normal lung sounds bilaterally. Absent: respiratory distress, wheezes, rales, rhonchi, stridor Cardiovascular Exam: Present: regular rate, normal rhythm, normal heart sounds. Absent: systolic murmur, diastolic murmur, rubs, gallop, clicks GI/Abdominal exam: Present: soft, normal bowel sounds. Absent: distended, tenderness, guarding, rebound, rigid Back exam: Absent: CVA tenderness (R), CVA tenderness (L) Neurological exam: Present: alert, oriented X3, CN II-XII intact Course Vital Signs 07/13/22 07/14/22 21:06 01:23 Temperature 98.0 F 97.4 F L Pulse Rate 74 49 L Respiratory 18 18 Rate Blood Pressure 123/86 102/69 O2 Sat by Pulse 98 98 Oximetry Medical Decision Making - Medical Decision Making 41-year-old female presents to the emergency Department with complaints of urinary frequency and dysuria. Upon exam, patient is well-appearing and in no acute distress. Motrin and Zofran were given with improvement. Urinalysis was obtained showing 1+ protein, small amount of blood, large leukocyte esterase, 21 urine rbc's per HPF, more than 182 urine WBCs per hpf, and many urine WBC clumps, and few urine bacteria. Given that patient has recently been treated with amoxicillin, she will be prescribed Keflex. First dose given in the emergency department. Reiterated importance of perineal/toileting hygiene. Encouraged to follow up with PCP for recheck. Return parameters discussed in detail. Patient verbalizes understanding and agrees with this plan. Attending: Willie. Was pt. sent in by a medical professional or institution? @ -No Did you speak to anyone other than the patient for history? @ -No Did you review nursing and triage notes? @ -Yes, agree Were old charts reviewed? @ -No Differential Diagnosis? @ -UTI, pyelonephritis, renal calculi, this is not meant to be an exhaustive list EKG interpreted by me (3pts min.)? @ -Not applicable X-rays interpreted by me (1pt min.)? @ -Nonapplicable CT interpreted by me (1pt min.)? @ -Not applicable U/S interpreted by me (1pt. min.)? @ -Not applicable What testing was considered but not performed? (CT, X-rays, U/S, labs)? Why? @None. What meds were considered but not given? Why? @ -None Did you discuss the management of the patient with other professionals? @ -None Did you reconcile home meds? @ -No Was smoking cessation discussed for >3mins.? @ -No Was critical care preformed (if so, how long)? @ -No Were there social determinants of health that impacted care today? How? (Homelessness, low income, unemployed, alcoholism, drug addiction, transportation, low edu. Level, literacy, decrease access to med. care, fci, rehab)? @ -No Was there de-escalation of care discussed even if they declined? (Discuss DNR or withdrawal of care, Hospice)? @ -No What co-morbidities impacted this encounter? (DM, HTN, Smoking, COPD, CAD, Cancer, CVA, Hep., AIDS, mental health diagnosis, sleep apnea, morbid obesity)? @No Was patient admitted / discharged? @ -Discharged Undiagnosed new problem with uncertain prognosis? @ -None Drug Therapy requiring intensive monitoring for toxicity (Heparin, Nitro, Insulin, Cardizem)? @ -None Were any procedures done? @ -None Diagnosis/symptom? @ -UTI Acute, or Chronic, or Acute on Chronic? @ -Acute Uncomplicated (without systemic symptoms) or Complicated (systemic symptoms)? @ -Uncomplicated Side effects of treatment? @ -None Exacerbation, Progression, or Severe Exacerbation] @ -No Poses a threat to life or bodily function? @ -No - Lab Data Lab Results 07/13/22 Range/Units 23:09 Urine Color Light Yellow Urine Appearance Turbid H (Clear) Urine pH 6.0 (5.0-8.0) Ur Specific [place] 1.013 (1.001-1.035) Urine Protein 1+ H (Negative) Urine Glucose (UA) Negative (Negative) Urine Ketones Negative (Negative) Urine Blood Small H (Negative) Urine Nitrite Negative (Negative) Urine Bilirubin Negative (Negative) Urine Urobilinogen <2.0 (<2.0) mg/dL Ur Leukocyte Esterase Large H (Negative) Urine RBC 21 H (0-5) /hpf Urine WBC >182 H (0-5) /hpf Urine WBC Clumps Many H (None) /hpf Ur Squamous Epith Cells 1 (0-4) /hpf Urine Bacteria Few H (None) /hpf Urine Mucus Rare H (None) /hpf Disposition Clinical Impression: UTI (urinary tract infection) Disposition: HOME SELF-CARE Condition: Stable Instructions (If sedation given, give patient instructions): Urinary Tract Infection in Women (ED) Additional Instructions: Take antibiotic as prescribed. Increase her intake of water. Avoid sugary foods and caffeine. White count back after toileting. Follow-up with your PCP for a recheck as needed. Return to the emergency department with any new, worsening, or concerning symptoms. Prescriptions: Cephalexin [Keflex] 500 mg PO Q12HR 7 Days #14 cap Is patient prescribed a controlled substance at d/c from ED?: No Referrals: Fernando Oliver MD [Primary Care Provider] - 1-2 days Time of Disposition: 00:54
[2022-07-14 00:18] LABS: Appearance,Urine Turbid (Clear); Bacteria,Urine Few /hpf; Bilirubin,Urine Negative (Negative); Blood,Urine Small (Negative); Color,Urine Light Yellow; Glucose,Urine (UA) Negative (Negative); Ketones,Urine Negative (Negative); Leukocyte Esterase,Urine Large (Negative); Mucus,Urine Rare /hpf; Nitrite,Urine Negative (Negative); Protein,Urine 1+ (Negative); RBC,Urine 21 /hpf (0-5); Specific Gravity,Urine 1.013 (1.001-1.035); Squamous Epithelial Cell,Urine 1 /hpf (0-4); Urobilinogen,Urine <2.0 mg/dL (<2.0); WBC,Urine >182 /hpf (0-5)
[2022-07-14] MEDS ORDERED: CEPHALEXIN 500 MG CAP PO STA (00:44)
[2022-07-14 01:25] VITALS: BP 102/69; PULSE 49; TEMP 97.4
== END 2022-07-14 01:25 | disposition home or self-care (01) ==
LOC: EC 20:44
DX: N39.0 Urinary tract infection, site not specified (principal); F41.9 Anxiety disorder, unspecified; F31.9 Bipolar disorder, unspecified; F17.290 Nicotine dependence, other tobacco product, uncomplicated; F12.90 Cannabis use, unspecified, uncomplicated; Z88.8 Allergy status to other drugs, medicaments and biological substances
CPT/HCPCS: 81001; 87077; 87086; 87186; 99283

== ENCOUNTER → 2022-12-30 | Outpatient (CLI) | payer OTHER ==
--- NOTE | 2022-12-30 08:13 | CT ---
EXAMINATION TYPE: CT brain wo con DATE OF EXAM: 12/30/2022 COMPARISON: None HISTORY: MIGRAINE CT DLP: 978.[address] of the brain was performed. The ventricles, basal cisterns and sulci overlying the cerebral convexities demonstrate a normal appe arance. There is no evidence for intracranial hemorrhage or sulcal effacement. No mass effects are seen. Osseous calvarium is intact. If symptoms persist consider MRI as clinically warranted. IMPRESSION: 1. No acute intracranial process is seen at this time.
== END | disposition home or self-care (01) ==
LOC: RADCTMAIN 07:22
PROVIDERS: ATTEND Family Medicine
DX: G43.909 Migraine, unspecified, not intractable, without status migrainosus (principal)
CPT/HCPCS: 70450

== ENCOUNTER 2023-03-24 03:54 | Emergency (ER) | payer OTHER ==
[2023-03-24 04:45] LABS: Basophils % (A) 0 %; Eosinophils # (A) 0.4 k/uL (0-0.7); Eosinophils % (A) 4 %; HCT 40.6 % (34.0-46.0); HGB 12.9 gm/dL (11.4-16.0); Lymphocytes # (A) 3.9 k/uL (1.0-4.8); Lymphocytes % (A) 36 %; MCH 27.3 pg (25.0-35.0); MCHC 31.8 g/dL (31.0-37.0); MCV 85.8 fL (80.0-100.0); Mean Platelet Volume 10.4; Monocytes # (A) 0.4 k/uL (0-1.0); Monocytes % (A) 4 %; Neutrophils # (A) 6.1 k/uL (1.3-7.7); Neutrophils % (A) 55 %; Platelet Count 270 k/uL (150-450); RBC 4.73 m/uL (3.80-5.40); RDW 13.3 % (11.5-15.5)
[2023-03-24 04:55] LABS: ALT 16 U/L (4-34); AST 21 U/L (14-36); African American GFR (CKD) >90 (>60 ml/min/1.73 sqM); Albumin 4.6 g/dL (3.5-5.0); Alkaline Phosphatase 54 U/L (38-126); Anion Gap 13 mmol/L; Blood Urea Nitrogen 20 mg/dL (7-17); Calcium 9.8 mg/dL (8.4-10.2); Carbon Dioxide 16 mmol/L (22-30); Chloride 109 mmol/L (98-107); Glucose 127 mg/dL (74-99); Non-African American GFR(CKD) >90 (>60 ml/min/1.73 sqM); Partial Thromboplastin Time 22.9 sec (22.0-30.0); Potassium 3.7 mmol/L (3.5-5.1); Prothrombin Time 10.5 sec (9.0-12.0); Sodium 138 mmol/L (137-145); Total Bilirubin 0.6 mg/dL (0.2-1.3); Total Protein 7.9 g/dL (6.3-8.2)
[2023-03-24] MEDS ORDERED: METOCLOPRAMIDE 5 MG/ML 2 ML VIAL IVP STA (05:14)
[2023-03-24] MEDS ORDERED: SODIUM CHLORIDE 0.9% 1,000 ML IV STA (05:16)
--- NOTE | 2023-03-24 05:18 | ED ---
General Adult HPI - General Chief complaint: Arrhythmia/Palpitations Stated complaint: Chest Pain Time Seen by Provider: 03/24/23 04:52 Source: patient Mode of arrival: ambulatory Limitations: no limitations - History of Present Illness Initial comments: Dictation was produced using [employer] dictation software. please excuse any grammatical, word or spelling errors. Chief Complaint: 42-year-old female presents chief complaint of dizziness palpitations History of Present Illness: So 42-year-old female presents emergency department for dizziness palpitations. She woke up at about midnight got up when all of a sudden she felt dizzy and felt like her heart was racing. States that he felt like the room is spinning is worse when she moves her head. She has past medical history of pain disorder. She takes Suboxone. Patient complains of whole body pain. Otherwise since being in the ER she is felt improved. Except for some slightly dizziness. The ROS documented in this emergency department record has been reviewed and con firmed by me. Those systems with pertinent positive or negative responses have been documented in the HPI. All other systems are other negative and/or noncontributory. - Related Data Home Medications Medication Instructions Recorded Confirmed Albuterol Inhaler [Ventolin Hfa 2 puff INHALATION RT-QID PRN 04/16/22 08/11/22 Inhaler] Buprenorphine HCl/Naloxone HCl 1 film SL BID 04/16/22 08/11/22 [Suboxone 8 mg-2 mg Sl Film] Ergocalciferol [Vitamin D2 (1250 1,250 mcg PO Q7D 04/16/22 08/09/22 Mcg = 89574 Iu)] Levothyroxine Sodium [Synthroid] 25 mcg PO DAILY 04/16/22 08/11/22 cloNIDine HCL [Catapres] 0.1 mg PO BID 04/16/22 08/11/22 LORazepam [Ativan] 0.5 mg PO BID PRN 08/09/22 08/11/22 Lansoprazole [Prevacid] 30 mg PO BID 08/09/22 08/11/22 Previous Rx's Medication Instructions Recorded Meclizine [Antivert] 25 mg PO TID PRN #15 tab 03/24/23 Allergies Allergy/AdvReac Type Severity Reaction Status Date / Time amitriptyline Allergy Rash/Hives Verified 09/14/23 03:55 sumatriptan [From Imitrex] Allergy Anaphylaxis Verified 03/24/23 03:55 latex AdvReac Itching Verified 03/24/23 03:55 Review of Systems ROS Statement: Those systems with pertinent positive or pertinent negative responses have been documented in the HPI. ROS Other: All systems not noted in ROS Statement are negative. Past Medical History Additional Past Medical History / Comment(s): anemia 4 blood transfusions bood disorder hep c in remission History of Any Multi-Drug Resistant Organisms: None Reported Past Surgical History: Section, Hysterectomy, Tonsillectomy Past Anesthesia/Blood Transfusion Reactions: No Reported Reaction Past Psychological History: Anxiety, Bipolar Smoking Status: Former smoker, Vaper Past Alcohol Use History: None Reported Past Drug Use History: None Reported General Exam - General Exam Comments Initial Comments: PHYSICAL EXAM: General Impression: Alert and oriented x3, not in acute distress HEENT: Normocephalic atraumatic, extra-ocular movements intact, pupils equal and reactive to light bilaterally, mucous membranes moist. Cardiovascular: Heart regular rate and rhythm Chest: Able to complete full sentences, no retractions, no tachypnea Abdomen: abdomen soft, non-tender, non-distended, no organomegaly Musculoskeletal: Pulses present and equal in all extremities, no peripheral edema Motor: no focal deficits noted Neurological: CN II-XII grossly intact, no focal motor or sensory deficits noted, no nystagmus normal gait, ambulatory with no complications Skin: Intact with no visualized rashes Psych: Normal affect and mood Limitations: no limitations Course Vital Signs 03/24/23 03:55 Temperature 98.9 F Pulse Rate 125 H Respiratory 18 Rate Blood Pressure 164/104 O2 Sat by Pulse 98 Oximetry EKG Findings - EKG Comments: EKG Findings:: My EKG interpretation: Ventricular rate 77, sinus rhythm,. 117, QRS 86, QTC 385. No AK prolongation, no QTC prolongation, no ST or T-wave changes noted. Overall, this EKG is unremarkable Medical Decision Making - Medical Decision Making Was pt. sent in by a medical professional or institution (, PA, NECKTIE STITCHER, urgent care, hospital, or care home...) When possible be specific @ -No Did you speak to anyone other than the patient for history (EMS, parent, family, police, friend...)? What history was obtained from this source @ -No Did you review nursing and triage notes (agree or disagree)? Why? @ -I reviewed and agree with nursing and triage notes Were old charts reviewed (outside hosp., previous admission, EMS record, old EKG, old radiological studies, urgent care reports/EKG's, care home records)? Report findings @ -No old charts were reviewed Differential Diagnosis (chest pain, altered mental status, abdominal pain women, abdominal pain men, vaginal bleeding, musculoskeletal, weakness, fever, dyspnea, syncope, headache, dizziness, GI bleed, back pain, seizure, CVA, palpatations, mental health)? @ -Differential Dizziness: Benign paroxysmal positional Vertigo, Menieres disease, otitis media, acoustic neuroma, vertebrobasilar insufficiency, cerebellar stroke, encephalitis, hypovolemic, arrhythmia, coronary artery syndrome, anemia, this is not meant to be an all-inclusive list EKG interpreted by me (3pts min.). @ -None done X-rays interpreted by me (1pt min.). @ -None done CT interpreted by me (1pt min.). @ -None done U/S interpreted by me (1pt. min.). @ -None done What testing was considered but not performed or refused? (CT, X-rays, U/S, labs)? Why? @ -None What meds were considered but not given or refused? Why? @ -None Did you discuss the management of the patient with other professionals (professionals i.e. , PA, NECKTIE STITCHER, lab, RT, psych nurse, social worker masters, it senior software engineer java, teacher, electrical engineering drafting officer, supportive employment case manager)? Give summary @ -No Was smoking cessation discussed for >3mins.? @ -No Was critical care preformed (if so, how long)? @ -No Were there social determinants of health that impacted care today? How? (Homelessness, low income, unemployed, alcoholism, drug addiction, transportation, low edu. Level, literacy, decrease access to med. care, care home, rehab)? @ -No Was there de-escalation of care discussed even if they declined (Discuss DNR or withdrawal of care, Hospice)? DNR status @ -No What co-morbidities impacted this encounter? (DM, HTN, Smoking, COPD, CAD, Cancer, CVA, ARF, Chemo, Hep., AIDS, mental health diagnosis, sleep apnea, morbid obesity)? @ -None Was patient admitted / discharged? Hospital course, mention meds given and route, prescriptions, significant lab abnormalities, going to OR and other pertinent info. @ -42-year-old female with chief complaint of dizziness. Vital signs are stable. Patient is well-appearing at the bedside. Initial vital signs shows heart rate of 125 with sinus tachycardia. Laboratory evaluation obtained. CBC is unremarkable. Coag panel is negative. Mild non-gap acidosis with elevated BUN to creatinine ratio suggesting dehydration. Patient feels better with fluids and Reglan. Clinical presentation consistent with benign paroxysmal positional vertigo. Patient given prescription for Antivert discharge. Undiagnosed new problem with uncertain prognosis? @ -No Drug Therapy requiring intensive monitoring for toxicity (Heparin, Nitro, Insulin, Cardizem)? @ -No Were any procedures done? @ -No Diagnosis/symptom? Acute, or Chronic, or Acute on Chronic? Uncomplicated (without systemic symptoms) or Complicated (systemic symptoms)? @ -Dehydration, benign paroxysmal positional vertigo Side effects of treatment? @ -No Exacerbation, Progression, or Severe Exacerbation? @ -No Poses a threat to life or bodily function? How? (Chest pain, [place], [place], pneumonia, PE, COPD, DKA, ARF, appy, cholecystitis, CVA, Diverticulitis, Homicidal, Suicidal, threat to staff... and all critical care pts) @ -No - Lab Data Result diagrams: 03/24/23 04:34 03/24/23 04:34 Lab Results 03/24/23 03/24/23 03/24/23 Range/Units 04:34 04:34 04:34 WBC 11.0 H (3.8-10.6) k/uL RBC 4.73 (3.80-5.40) m/uL Hgb 12.9 (11.4-16.0) gm/dL Hct 40.6 (34.0-46.0) % MCV 85.8 (80.0-100.0) fL MCH 27.3 (25.0-35.0) pg MCHC 31.8 (31.0-37.0) g/dL RDW 13.3 (11.5-15.5) % Plt Count 270 (150-450) k/uL MPV 10.4 Neutrophils % 55 % Lymphocytes % 36 % Monocytes % 4 % Eosinophils % 4 % Basophils % 0 % Neutrophils # 6.1 (1.3-7.7) k/uL Lymphocytes # 3.9 (1.0-4.8) k/uL Monocytes # 0.4 (0-1.0) k/uL Eosinophils # 0.4 (0-0.7) k/uL Basophils # 0.0 (0-0.2) k/uL PT 10.5 (9.0-12.0) sec INR 1.0 (<1.2) APTT 22.9 (22.0-30.0) sec Sodium 138 (137-145) mmol/L Potassium 3.7 (3.5-5.1) mmol/L Chloride 109 H (98-107) mmol/L Carbon Dioxide 16 L (22-30) mmol/L Anion Gap 13 mmol/L BUN 20 H (7-17) mg/dL Creatinine 0.65 (0.52-1.04) mg/dL Est GFR (CKD-EPI)AfAm >90 (>60 ml/min/1.73 sqM) Est GFR (CKD-EPI)NonAf >90 (>60 ml/min/1.73 sqM) Glucose 127 H (74-99) mg/dL Calcium 9.8 (8.4-10.2) mg/dL Total Bilirubin 0.6 (0.2-1.3) mg/dL AST 21 (14-36) U/L ALT 16 (4-34) U/L Alkaline Phosphatase 54 (38-126) U/L Troponin I (0.000-0.034) ng/mL Total Protein 7.9 (6.3-8.2) g/dL Albumin 4.6 (3.5-5.0) g/dL 03/24/23 Range/Units 04:34 WBC (3.8-10.6) k/uL RBC (3.80-5.40) m/uL Hgb (11.4-16.0) gm/dL Hct (34.0-46.0) % MCV (80.0-100.0) fL MCH (25.0-35.0) pg MCHC (31.0-37.0) g/dL RDW (11.5-15.5) % Plt Count (150-450) k/uL MPV Neutrophils % % Lymphocytes % % Monocytes % % Eosinophils % % Basophils % % Neutrophils # (1.3-7.7) k/uL Lymphocytes # (1.0-4.8) k/uL Monocytes # (0-1.0) k/uL Eosinophils # (0-0.7) k/uL Basophils # (0-0.2) k/uL PT (9.0-12.0) sec INR (<1.2) APTT (22.0-30.0) sec Sodium (137-145) mmol/L Potassium (3.5-5.1) mmol/L Chloride (98-107) mmol/L Carbon Dioxide (22-30) mmol/L Anion Gap mmol/L BUN (7-17) mg/dL Creatinine (0.52-1.04) mg/dL Est GFR (CKD-EPI)AfAm (>60 ml/min/1.73 sqM) Est GFR (CKD-EPI)NonAf (>60 ml/min/1.73 sqM) Glucose (74-99) mg/dL Calcium (8.4-10.2) mg/dL Total Bilirubin (0.2-1.3) mg/dL AST (14-36) U/L ALT (4-34) U/L Alkaline Phosphatase (38-126) U/L Troponin I <0.012 (0.000-0.034) ng/mL Total Protein (6.3-8.2) g/dL Albumin (3.5-5.0) g/dL Disposition Clinical Impression: Vertigo Disposition: HOME SELF-CARE Condition: Good Instructions (If sedation given, give patient instructions): Vertigo (ED) Prescriptions: Meclizine [Antivert] 25 mg PO TID PRN #15 tab PRN Reason: dizziness Is patient prescribed a controlled substance at d/c from ED?: No Referrals: Fernando Oliver MD [Primary Care Provider] - 1-2 days Time of Disposition: 07:01
--- NOTE | 2023-03-24 07:06 | XR ---
EXAMINATION TYPE: XR chest 2V DATE OF EXAM: 03/24/2023 COMPARISON: 04/16/2022 HISTORY: 42-year-old female palpitations and chest pain, dizziness TECHNIQUE: PA and lateral views FINDINGS: The cardiomediastinal silhouette, aorta, and pulmonary vasculature are within normal limits. Lungs an d pleural spaces are clear. IMPRESSION: No acute cardiopulmonary process.
[2023-03-24 15:54] VITALS: BP 173/97; PULSE 63; RESP 18; TEMP 98.9
== END 2023-03-24 07:31 | disposition home or self-care (01) ==
LOC: EC 03:54
DX: R42 Dizziness and giddiness (principal); F41.9 Anxiety disorder, unspecified; F31.9 Bipolar disorder, unspecified; F17.290 Nicotine dependence, other tobacco product, uncomplicated; Z91.040 Latex allergy status; Z88.8 Allergy status to other drugs, medicaments and biological substances; Z79.899 Other long term (current) drug therapy
CPT/HCPCS: 36415; 93005; 80053; 84484; 85025; 85610; 85730; 71046; 99285; 96374; 96361; J2765

== ENCOUNTER 2023-03-25 08:19 | Emergency (ER) | payer OTHER ==
[2023-03-25 08:23] VITALS: TEMP 98
[2023-03-25] MEDS ORDERED: LORazepam 2 MG/ML INJ IV STA ×2 (08:35→09:39)
--- NOTE | 2023-03-25 08:41 | ED ---
General Adult HPI - General Chief complaint: Recheck/Abnormal Lab/Rx Stated complaint: High BP Time Seen by Provider: 03/25/23 08:28 Source: patient, RN notes reviewed Mode of arrival: ambulatory Limitations: no limitations - History of Present Illness Initial comments: Patient is a pleasant 42-year-old female presenting to the emergency department with concerns with high blood pressure. Patient believes her blood pressure is high at the past few days. Patient admits to feeling anxious. Patient does have chronic anxiety and panic problems. Patient questions if this could be related to her blood pressure. Patient does feel achy all over. Patient states she was in the hospital yesterday for dizziness and that has improved. - Related Data Home Medications Medication Instructions Recorded Confirmed Albuterol Inhaler [Ventolin Hfa 2 puff INHALATION RT-QID PRN 04/16/22 08/11/22 Inhaler] Buprenorphine HCl/Naloxone HCl 1 film SL BID 04/16/22 08/11/22 [Suboxone 8 mg-2 mg Sl Film] Ergocalciferol [Vitamin D2 (1250 1,250 mcg PO Q7D 04/16/22 08/09/22 Mcg = 75795 Iu)] Levothyroxine Sodium [Synthroid] 25 mcg PO DAILY 04/16/22 08/11/22 cloNIDine HCL [Catapres] 0.1 mg PO BID 04/16/22 08/11/22 LORazepam [Ativan] 0.5 mg PO BID PRN 08/09/22 08/11/22 Lansoprazole [Prevacid] 30 mg PO BID 08/09/22 08/11/22 Previous Rx's Medication Instructions Recorded Meclizine [Antivert] 25 mg PO TID PRN #15 tab 03/24/23 Allergies Allergy/AdvReac Type Severity Reaction Status Date / Time amitriptyline Allergy Rash/Hives Verified 03/25/23 08:22 sumatriptan [From Imitrex] Allergy Anaphylaxis Verified 03/25/23 08:22 latex AdvReac Itching Verified 03/25/23 08:22 Review of Systems ROS Statement: Those systems with pertinent positive or pertinent negative responses have been documented in the HPI. ROS Other: All systems not noted in ROS Statement are negative. Constitutional: Denies: fever Eyes: Denies: eye pain ENT: Denies: ear pain Respiratory: Denies: dyspnea Gastrointestinal: Denies: abdominal pain Genitourinary: Denies: dysuria Past Medical History Additional Past Medical History / Comment(s): anemia 4 blood transfusions bood disorder hep c in remission History of Any Multi-Drug Resistant Organisms: None Reported Past Surgical History: Section, Hysterectomy, Tonsillectomy Past Anesthesia/Blood Transfusion Reactions: No Reported Reaction Past Psychological History: Anxiety, Bipolar Smoking Status: Vaper Past Alcohol Use History: Rare Past Drug Use History: Marijuana General Exam Limitations: no limitations General appearance: alert, in no apparent distress Head exam: Present: normocephalic Eye exam: Present: normal appearance Neck exam: Present: normal inspection Respiratory exam: Present: normal lung sounds bilaterally Cardiovascular Exam: Present: regular rate, normal rhythm Expanded Peripheral pulses: 2+: Radial (R), Radial (L), Posterior Tibialis (R), Posterior Tibialis (L) GI/Abdominal exam: Present: soft. Absent: tenderness Extremities exam: Present: normal inspection. Absent: pedal edema, calf tenderness Neurological exam: Present: alert. Absent: motor sensory deficit Psychiatric exam: Present: anxious Skin exam: Present: normal color Course Vital Signs 03/25/23 03/25/23 03/25/23 08:20 09:16 09:40 Temperature 98 F Pulse Rate 95 63 Pulse Rate [ 90 Appeals And Generalist Clerk ] Respiratory 20 18 Rate Blood Pressure 180/132 134/80 O2 Sat by Pulse 100 98 Oximetry EKG Findings - EKG Results: EKG: interpreted by ERMD, sinus rhythm, normal axis, normal QRS, normal ST/T Medical Decision Making - Medical Decision Making Was pt. sent in by a medical professional or institution (Dr. PA, [employer], urgent care, hospital, or senior care...) When possible be specific @ -No Did you speak to anyone other than the patient for history (EMS, parent, family, police, friend...)? What history was obtained from this source @ -No Did you review nursing and triage notes (agree or disagree)? Why? @ -I reviewed and agree with nursing and triage notes Were old charts reviewed (outside hosp., previous admission, EMS record, old EKG, old radiological studies, urgent care reports/EKG's, senior care records)? Report findings @ -No old charts were reviewed Differential Diagnosis (chest pain, altered mental status, abdominal pain women, abdominal pain men, vaginal bleeding, weakness, fever, dyspnea, syncope, headache, dizziness, GI bleed, back pain, seizure, CVA, palpatations, mental health, musculoskeletal)? @ -Differential Weakness: Hypoglycemia, shock, sepsis, hyponatremia, anemia, infection, [place], ETOH, adverse medicine reaction, overdose, stroke, this is not meant to be an all-inclusive list. EKG interpreted by me (3pts min.). @ -As above X-rays interpreted by me (1pt min.). @ -Chest x-ray shows no acute process CT interpreted by me (1pt min.). @ -None done U/S interpreted by me (1pt. min.). @ -None done What testing was considered but not performed or refused? (CT, X-rays, U/S, labs)? Why? @ -None What meds were considered but not given or refused? Why? @ -Consider blood pressure medication however symptoms resolved with Ativan Did you discuss the management of the patient with other professionals (professionals i.e. , PA, [employer], lab, RT, psych nurse, social studies teacher, business law teacher, teacher, employee service officer, ed case manager)? Give summary @ -No Was smoking cessation discussed for >3mins.? @ -No Was critical care preformed (if so, how long)? @ -No Were there social determinants of health that impacted care today? How? (Homelessness, low income, unemployed, alcoholism, drug addiction, transportation, low edu. Level, literacy, decrease access to med. care, long term, rehab)? @ -No Was there de-escalation of care discussed even if they declined (Discuss DNR or withdrawal of care, Hospice)? DNR status @ -No What co-morbidities impacted this encounter? (DM, HTN, Smoking, COPD, CAD, Cancer, CVA, ARF, Chemo, Hep., AIDS, mental health diagnosis, sleep apnea, morbid obesity)? @ -None Was patient admitted / discharged? Hospital course, mention meds given and route, prescriptions, significant lab abnormalities, going to OR and other pertinent info. @ -Patient reevaluated and slightly drowsy from medication. Patient otherwise is symptom-free. Patient states she is comfortable with discharge home. Blood pressure stable. Patient and family are updated on results as well as need for follow-up. Undiagnosed new problem with uncertain prognosis? @ -No Drug Therapy requiring intensive monitoring for toxicity (Heparin, Nitro, Insulin, Cardizem)? @ -No Were any procedures done? @ -No Diagnosis/symptom? @ -Hypertension, anxiety Acute, or Chronic, or Acute on Chronic? @ -Acute, acute on chronic Uncomplicated (without systemic symptoms) or Complicated (systemic symptoms)? @ -default Side effects of treatment? @ -No Exacerbation, Progression, or Severe Exacerbation? @ -No Poses a threat to life or bodily function? How? (Chest pain, [place], [place], pneumonia, PE, COPD, DKA, ARF, appy, cholecystitis, CVA, Diverticulitis, Homicidal, Suicidal, threat to staff... and all critical care pts) @ -No - Lab Data Result diagrams: 03/25/23 09:33 03/25/23 09:33 Lab Results 03/25/23 03/25/23 03/25/23 Range/Units 09:33 09:33 09:33 WBC 7.1 (3.8-10.6) k/uL RBC 4.17 (3.80-5.40) m/uL Hgb 11.7 (11.4-16.0) gm/dL Hct 35.8 (34.0-46.0) % MCV 85.8 (80.0-100.0) fL MCH 28.0 (25.0-35.0) pg MCHC 32.6 (31.0-37.0) g/dL RDW 13.4 (11.5-15.5) % Plt Count 224 (150-450) k/uL MPV 10.0 Neutrophils % 72 % Lymphocytes % 22 % Monocytes % 4 % Eosinophils % 1 % Basophils % 0 % Neutrophils # 5.1 (1.3-7.7) k/uL Lymphocytes # 1.6 (1.0-4.8) k/uL Monocytes # 0.3 (0-1.0) k/uL Eosinophils # 0.1 (0-0.7) k/uL Basophils # 0.0 (0-0.2) k/uL PT 10.8 (9.0-12.0) sec INR 1.0 (<1.2) APTT 23.3 (22.0-30.0) sec D-Dimer 0.19 (<0.60) mg/L FEU Sodium 141 (137-145) mmol/L Potassium 4.0 (3.5-5.1) mmol/L Chloride 113 H (98-107) mmol/L Carbon Dioxide 17 L (22-30) mmol/L Anion Gap 11 mmol/L BUN 19 H (7-17) mg/dL Creatinine 0.64 (0.52-1.04) mg/dL Est GFR (CKD-EPI)AfAm >90 (>60 ml/min/1.73 sqM) Est GFR (CKD-EPI)NonAf >90 (>60 ml/min/1.73 sqM) Glucose 96 (74-99) mg/dL Calcium 9.4 (8.4-10.2) mg/dL Magnesium 1.7 (1.6-2.3) mg/dL Total Bilirubin 0.5 (0.2-1.3) mg/dL AST 23 (14-36) U/L ALT 16 (4-34) U/L Alkaline Phosphatase 51 (38-126) U/L Troponin I (0.000-0.034) ng/mL Total Protein 7.6 (6.3-8.2) g/dL Albumin 4.4 (3.5-5.0) g/dL 03/25/23 Range/Units 09:33 WBC (3.8-10.6) k/uL RBC (3.80-5.40) m/uL Hgb (11.4-16.0) gm/dL Hct (34.0-46.0) % MCV (80.0-100.0) fL MCH (25.0-35.0) pg MCHC (31.0-37.0) g/dL RDW (11.5-15.5) % Plt Count (150-450) k/uL MPV Neutrophils % % Lymphocytes % % Monocytes % % Eosinophils % % Basophils % % Neutrophils # (1.3-7.7) k/uL Lymphocytes # (1.0-4.8) k/uL Monocytes # (0-1.0) k/uL Eosinophils # (0-0.7) k/uL Basophils # (0-0.2) k/uL PT (9.0-12.0) sec INR (<1.2) APTT (22.0-30.0) sec D-Dimer (<0.60) mg/L FEU Sodium (137-145) mmol/L Potassium (3.5-5.1) mmol/L Chloride (98-107) mmol/L Carbon Dioxide (22-30) mmol/L Anion Gap mmol/L BUN (7-17) mg/dL Creatinine (0.52-1.04) mg/dL Est GFR (CKD-EPI)AfAm (>60 ml/min/1.73 sqM) Est GFR (CKD-EPI)NonAf (>60 ml/min/1.73 sqM) Glucose (74-99) mg/dL Calcium (8.4-10.2) mg/dL Magnesium (1.6-2.3) mg/dL Total Bilirubin (0.2-1.3) mg/dL AST (14-36) U/L ALT (4-34) U/L Alkaline Phosphatase (38-126) U/L Troponin I <0.012 (0.000-0.034) ng/mL Total Protein (6.3-8.2) g/dL Albumin (3.5-5.0) g/dL Disposition Clinical Impression: Hypertension, Acute anxiety Disposition: HOME SELF-CARE Condition: Stable Instructions (If sedation given, give patient instructions): Hypertension (ED), Anxiety (ED) Additional Instructions: No work or driving today. Please do follow-up to primary care physician in the next couple days for recheck. Return for uncontrolled blood pressure, weakness, pain, worsening or change in symptoms or other concerns. Is patient prescribed a controlled substance at d/c from ED?: No Referrals: Fernando Oliver MD [Primary Care Provider] - 1-2 days Time of Disposition: 10:47
--- NOTE | 2023-03-25 09:27 | XR ---
EXAMINATION TYPE: XR chest 2V DATE OF EXAM: 03/25/2023 COMPARISON: 03/24/2023 HISTORY: 42-year-old female with chest pain TECHNIQUE: PA and lateral views FINDINGS: The cardiomediastinal silhouette, aorta, and pulmonary vasculature are within normal limits. Lungs an d pleural spaces are clear. IMPRESSION: No acute cardiopulmonary process.
[2023-03-25 09:43] VITALS: RESP 18
[2023-03-25 09:45] LABS: Basophils % (A) 0 %; Eosinophils # (A) 0.1 k/uL (0-0.7); Eosinophils % (A) 1 %; HCT 35.8 % (34.0-46.0); HGB 11.7 gm/dL (11.4-16.0); Lymphocytes # (A) 1.6 k/uL (1.0-4.8); Lymphocytes % (A) 22 %; MCHC 32.6 g/dL (31.0-37.0); MCV 85.8 fL (80.0-100.0); Monocytes # (A) 0.3 k/uL (0-1.0); Monocytes % (A) 4 %; Neutrophils # (A) 5.1 k/uL (1.3-7.7); Neutrophils % (A) 72 %; Platelet Count 224 k/uL (150-450); RBC 4.17 m/uL (3.80-5.40); RDW 13.4 % (11.5-15.5); WBC 7.1 k/uL (3.8-10.6)
[2023-03-25 09:55] LABS: Sodium 141 mmol/L (137-145)
[2023-03-25 09:57] LABS: ALT 16 U/L (4-34); AST 23 U/L (14-36); African American GFR (CKD) >90 (>60 ml/min/1.73 sqM); Albumin 4.4 g/dL (3.5-5.0); Alkaline Phosphatase 51 U/L (38-126); Anion Gap 11 mmol/L; Blood Urea Nitrogen 19 mg/dL (7-17); Calcium 9.4 mg/dL (8.4-10.2); Carbon Dioxide 17 mmol/L (22-30); Chloride 113 mmol/L (98-107); Glucose 96 mg/dL (74-99); Magnesium 1.7 mg/dL (1.6-2.3); Non-African American GFR(CKD) >90 (>60 ml/min/1.73 sqM); Total Bilirubin 0.5 mg/dL (0.2-1.3); Total Protein 7.6 g/dL (6.3-8.2)
[2023-03-25 10:02] LABS: Partial Thromboplastin Time 23.3 sec (22.0-30.0); Prothrombin Time 10.8 sec (9.0-12.0)
[2023-03-25 15:27] VITALS: BP 101/74; PULSE 68
== END 2023-03-25 13:26 | disposition home or self-care (01) ==
LOC: EC 08:19
DX: I10 Essential (primary) hypertension (principal); F41.9 Anxiety disorder, unspecified; F17.290 Nicotine dependence, other tobacco product, uncomplicated; F12.90 Cannabis use, unspecified, uncomplicated; Z79.899 Other long term (current) drug therapy; Z88.8 Allergy status to other drugs, medicaments and biological substances; Z91.040 Latex allergy status
CPT/HCPCS: 36415; 93005; 85379; 80053; 83735; 84484; 85025; 85610; 85730; 71046; 99284; 96374; J2060

== ENCOUNTER 2023-08-19 18:03 | Emergency (ER) | payer OTHER ==
[2023-08-19 18:22] VITALS: TEMP 98
--- NOTE | 2023-08-19 19:05 | ED ---
General Adult HPI - General Chief complaint: Fall Stated complaint: fall Time Seen by Provider: 08/19/23 18:29 Source: patient, RN notes reviewed Mode of arrival: ambulatory Limitations: no limitations - History of Present Illness Initial comments: 42-year-old female presents to the emergency department for evaluation of right knee and ankle pain following a fall. Patient states that this occurred while she was walking on uneven sidewalk yesterday. She does report that she is able to ambulate. She reports pain in her right hamstring, left glute and right ankle. She denies any head injury. Denies blood thinners.. - Related Data Home Medications Medication Instructions Recorded Confirmed Albuterol Inhaler [Ventolin Hfa 2 puff INHALATION RT-QID PRN 04/16/22 08/11/22 Inhaler] Buprenorphine HCl/Naloxone HCl 1 film SL BID 04/16/22 08/11/22 [Suboxone 8 mg-2 mg Sl Film] Ergocalciferol [Vitamin D2 (1250 1,250 mcg PO Q7D 04/16/22 08/09/22 Mcg = 72091 Iu)] Levothyroxine Sodium [Synthroid] 25 mcg PO DAILY 04/16/22 08/11/22 cloNIDine HCL [Catapres] 0.1 mg PO BID 04/16/22 08/11/22 LORazepam [Ativan] 0.5 mg PO BID PRN 08/09/22 08/11/22 Lansoprazole [Prevacid] 30 mg PO BID 08/09/22 08/11/22 Previous Rx's Medication Instructions Recorded Meclizine [Antivert] 25 mg PO TID PRN #15 tab 03/24/23 Allergies Allergy/AdvReac Type Severity Reaction Status Date / Time amitriptyline Allergy Rash/Hives Verified 08/19/23 18:13 sumatriptan [From Imitrex] Allergy Anaphylaxis Verified 08/19/23 18:13 latex AdvReac Itching Verified 08/19/23 18:13 Review of Systems ROS Statement: Those systems with pertinent positive or pertinent negative responses have been documented in the HPI. ROS Other: All systems not noted in ROS Statement are negative. Past Medical History Past Medical History: Hypertension Additional Past Medical History / Comment(s): anemia 4 blood transfusions bood disorder hep c in remission History of Any Multi-Drug Resistant Organisms: None Reported Past Surgical History: Section, Hysterectomy, Tonsillectomy Past Anesthesia/Blood Transfusion Reactions: No Reported Reaction Past Psychological History: Anxiety, Bipolar Smoking Status: Vaper Past Alcohol Use History: Rare Past Drug Use History: Marijuana General Exam Limitations: no limitations General appearance: alert, in no apparent distress Head exam: Present: atraumatic, normocephalic, normal inspection Eye exam: Present: normal appearance, PERRL, EOMI. Absent: scleral icterus, conjunctival injection, periorbital swelling ENT exam: Present: normal exam, mucous membranes moist Neck exam: Present: normal inspection. Absent: tenderness, meningismus, lymphadenopathy Respiratory exam: Present: normal lung sounds bilaterally. Absent: respiratory distress, wheezes, rales, rhonchi, stridor Cardiovascular Exam: Present: regular rate, normal rhythm, normal heart sounds. Absent: systolic murmur, diastolic murmur, rubs, gallop, clicks Extremities exam: Present: full ROM, tenderness (rt ankle), normal capillary refill, other (DP and PT pulses 2+) Back exam: Present: normal inspection Neurological exam: Present: alert, oriented X3 Psychiatric exam: Present: normal affect, normal mood Skin exam: Present: warm, dry, intact, normal color. Absent: rash Course Vital Signs 08/19/23 08/19/23 18:11 20:30 Temperature 98 F Pulse Rate 86 68 Respiratory 20 16 Rate Blood Pressure 138/92 108/75 O2 Sat by Pulse 99 99 Oximetry Medical Decision Making - Medical Decision Making Was pt. sent in by a medical professional or institution (, PA, [employer] CR[employer] LAMINATING OPERATOR, urgent care, hospital, or long term...) When possible be specific @ -No Did you speak to anyone other than the patient for history (EMS, parent, family, police, friend...)? What history was obtained from this source @ -No Did you review nursing and triage notes (agree or disagree)? Why? @ -I reviewed and agree with nursing and triage notes Were old charts reviewed (outside hosp., previous admission, EMS record, old EKG, old radiological studies, urgent care reports/EKG's, long term records)? Report findings @ -No old charts were reviewed Differential Diagnosis (chest pain, altered mental status, abdominal pain women, abdominal pain men, vaginal bleeding, weakness, fever, dyspnea, syncope, headache, dizziness, GI bleed, back pain, seizure, CVA, palpatations, mental health, musculoskeletal)? @ -Differential Musculoskeletal Muscular strain, contusion, ligament sprain, fracture, arthritis, septic arthritis, bursitis, cellulitis, muscle spasm, nerve compression, DVT, arterial occlusion, herpes zoster, electrolyte abnormality, tumor.... This is not meant to be in all inclusive list EKG interpreted by me (3pts min.). @ -None X-rays interpreted by me (1pt min.). @ -X-ray of the right ankle shows no acute fracture CT interpreted by me (1pt min.). @ -None done U/S interpreted by me (1pt. min.). @ -None done What testing was considered but not performed or refused? (CT, X-rays, U/S, labs)? Why? @ -None What meds were considered but not given or refused? Why? @ -None Did you discuss the management of the patient with other professionals (professionals i.e. , PA, [employer] LAMINATING OPERATOR, lab, RT, psych nurse, foster care social worker, drywall professional, teacher, youth corrections officer, telehealth case manager)? Give summary @ -No Was smoking cessation discussed for >3mins.? @ -No Was critical care preformed (if so, how long)? @ -No Were there social determinants of health that impacted care today? How? (Homelessness, low income, unemployed, alcoholism, drug addiction, transportation, low edu. Level, literacy, decrease access to med. care, long-term, rehab)? @ -No Was there de-escalation of care discussed even if they declined (Discuss DNR or withdrawal of care, Hospice)? DNR status @ -No What co-morbidities impacted this encounter? (DM, HTN, Smoking, COPD, CAD, Cancer, CVA, ARF, Chemo, Hep., AIDS, mental health diagnosis, sleep apnea, morbid obesity)? @ -None Was patient admitted / discharged? Hospital course, mention meds given and route, prescriptions, significant lab abnormalities, going to OR and other pertinent info. @ -Discharge. Patient presented to the emergency department for evaluation of leg pain following a fall. Denies head injury or blood thinners. X-ray of the right ankle obtained which shows no acute fracture. Other injuries seem to be muscular in nature. Patient was provided a dose of Toradol in the emergency department. Patient given starter pack for Flexeril and advised to not drive or operate heavy machinery while taking this medicine. Patient understanding agreeable with plan. Patient stable at time of discharge. Undiagnosed new problem with uncertain prognosis? @ -No Drug Therapy requiring intensive monitoring for toxicity (Heparin, Nitro, Insulin, Cardizem)? @ -No Were any procedures done? @ -No Diagnosis/symptom? @ -Ankle sprain Acute, or Chronic, or Acute on Chronic? @ -acute Uncomplicated (without systemic symptoms) or Complicated (systemic symptoms)? @ -uncomplicated Side effects of treatment? @ -No Exacerbation, Progression, or Severe Exacerbation? @ -No Poses a threat to life or bodily function? How? (Chest pain, [place], [place], pneumonia, PE, COPD, DKA, ARF, appy, cholecystitis, CVA, Diverticulitis, Homicidal, Suicidal, threat to staff... and all critical care pts) @ -No Disposition Clinical Impression: Fall Disposition: HOME SELF-CARE Condition: Stable Instructions (If sedation given, give patient instructions): Fall Prevention (ED) Additional Instructions: Do not drive, work, or operate heavy machinery while taking muscle relaxers. Please follow up with your primary care provider. Return to the emergency department for new or worsening symptoms. Is patient prescribed a controlled substance at d/c from ED?: No Referrals: Fernando Oliver MD [Primary Care Provider] - 1-2 days
[2023-08-19] MEDS: KETOROLAC 15 MG/ML 1 ML VIAL IM STA (19:28)
--- NOTE | 2023-08-19 19:30 | XR ---
EXAMINATION TYPE: XR ankle complete RT DATE OF EXAM: 08/19/2023 CLINICAL HISTORY: fall fall injury with lateral pain. TECHNIQUE: Frontal, lateral and oblique images of the right ankle are obtained. COMPARISON: None. FINDINGS: There is no acute fracture/dislocation evident in the right ankle. The ankle mortise appe ars within normal limits. The overlying soft tissue appears unremarkable. IMPRESSION: There is no acute fracture or dislocation in the right ankle.
[2023-08-19] MEDS: CYCLOBENZAPRINE 10MG STARTER 3 TAB BTL PO STA (20:26)
[2023-08-19 20:34] VITALS: BP 108/75; PULSE 68; RESP 16
== END 2023-08-19 20:32 | disposition home or self-care (01) ==
LOC: EC 18:03
DX: S93.401A Sprain of unspecified ligament of right ankle, initial encounter (principal); I10 Essential (primary) hypertension; F41.9 Anxiety disorder, unspecified; F31.9 Bipolar disorder, unspecified; F12.90 Cannabis use, unspecified, uncomplicated; F17.290 Nicotine dependence, other tobacco product, uncomplicated; Z79.899 Other long term (current) drug therapy; Z91.040 Latex allergy status; Z88.8 Allergy status to other drugs, medicaments and biological substances; W18.30XA Fall on same level, unspecified, initial encounter; Y93.01 Activity, walking, marching and hiking
CPT/HCPCS: 73610; 99284; 96372; J1885

== ENCOUNTER 2023-10-31 21:51 | Emergency (ER) | payer OTHER ==
--- NOTE | 2023-10-31 22:09 | ED ---
General Adult HPI - General Chief complaint: Fall Stated complaint: fall,extremity injury Time Seen by Provider: 10/31/23 22:08 Source: patient, RN notes reviewed Mode of arrival: ambulatory Limitations: no limitations - History of Present Illness Initial comments: 43-year-old female presents to the emergency department for evaluation of fall with right hand injury. Patient states that she was walking earlier when she tripped and fell. She states that she landed on both knees and on her right outstretched hand. She reports abrasions to both of her shins. Patient is concerned about her right hand. She denies any other injury. Denies head injury, loss consciousness, blood thinners. Up to date on tetanus vaccination. - Related Data Home Medications Medication Instructions Recorded Confirmed Albuterol Inhaler [Ventolin Hfa 2 puff INHALATION RT-QID PRN 04/16/22 08/11/22 Inhaler] Buprenorphine HCl/Naloxone HCl 1 film SL BID 04/16/22 08/11/22 [Suboxone 8 mg-2 mg Sl Film] Ergocalciferol [Vitamin D2 (1250 1,250 mcg PO Q7D 04/16/22 08/09/22 Mcg = 91659 Iu)] Levothyroxine Sodium [Synthroid] 25 mcg PO DAILY 04/16/22 08/11/22 cloNIDine HCL [Catapres] 0.1 mg PO BID 04/16/22 08/11/22 LORazepam [Ativan] 0.5 mg PO BID PRN 08/09/22 08/11/22 Lansoprazole [Prevacid] 30 mg PO BID 08/09/22 08/11/22 Previous Rx's Medication Instructions Recorded Meclizine [Antivert] 25 mg PO TID PRN #15 tab 03/24/23 Allergies Allergy/AdvReac Type Severity Reaction Status Date / Time amitriptyline Allergy Rash/Hives Verified 10/31/23 22:06 sumatriptan [From Imitrex] Allergy Anaphylaxis Verified 10/31/23 22:06 latex AdvReac Itching Verified 10/31/23 22:06 Review of Systems ROS Statement: Those systems with pertinent positive or pertinent negative responses have been documented in the HPI. ROS Other: All systems not noted in ROS Statement are negative. Past Medical History Past Medical History: Hypertension Additional Past Medical History / Comment(s): anemia 4 blood transfusions bood disorder hep c in remission History of Any Multi-Drug Resistant Organisms: None Reported Past Surgical History: Section, Hysterectomy, Tonsillectomy Past Anesthesia/Blood Transfusion Reactions: No Reported Reaction Past Psychological History: Anxiety, Bipolar Smoking Status: Vaper Past Alcohol Use History: Rare Past Drug Use History: Marijuana General Exam - General Exam Comments Initial Comments: Visual Physical Exam Vital signs reviewed General: Well-appearing, nontoxic, no acute distress. Head: Normocephalic, atraumatic Eyes: PERRLA, EOMI ENT: Airway patent Chest: Nonlabored breathing Skin: No visual rash, normal skin tone Neuro: Alert and oriented 3 Musculoskeletal: No gross abnormalities Limitations: no limitations General appearance: alert, in no apparent distress Head exam: Present: atraumatic, normocephalic, normal inspection Eye exam: Present: normal appearance, PERRL, EOMI. Absent: scleral icterus, conjunctival injection, periorbital swelling Respiratory exam: Present: normal lung sounds bilaterally. Absent: respiratory distress, wheezes, rales, rhonchi, stridor Cardiovascular Exam: Present: regular rate, normal rhythm, normal heart sounds. Absent: systolic murmur, diastolic murmur, rubs, gallop, clicks Extremities exam: Present: full ROM, tenderness (medial right hand ttp), normal capillary refill, other (distal pulses intact) Back exam: Present: normal inspection Neurological exam: Present: alert, oriented X3, CN II-XII intact Psychiatric exam: Present: normal affect, normal mood Skin exam: Present: warm, dry, intact, normal color. Absent: rash Course Vital Signs 10/31/23 22:04 Temperature 98.0 F Pulse Rate 74 Respiratory 18 Rate Blood Pressure 141/99 O2 Sat by Pulse 98 Oximetry Medical Decision Making - Medical Decision Making Was pt. sent in by a medical professional or institution (, PA, LIFE ADVISOR, urgent care, hospital, or correction...) When possible be specific @ -No Did you speak to anyone other than the patient for history (EMS, parent, family, police, friend...)? What history was obtained from this source @ -No Did you review nursing and triage notes (agree or disagree)? Why? @ -I reviewed and agree with nursing and triage notes Were old charts reviewed (outside hosp., previous admission, EMS record, old EKG, old radiological studies, urgent care reports/EKG's, correction records)? Report findings @ -No old charts were reviewed Differential Diagnosis (chest pain, altered mental status, abdominal pain women, abdominal pain men, vaginal bleeding, weakness, fever, dyspnea, syncope, headache, dizziness, GI bleed, back pain, seizure, CVA, palpatations, mental health, musculoskeletal)? @ -Differential Musculoskeletal Muscular strain, contusion, ligament sprain, fracture, arthritis, septic arthritis, bursitis, cellulitis, muscle spasm, nerve compression, DVT, arterial occlusion, herpes zoster, electrolyte abnormality, tumor.... This is not meant to be in all inclusive list EKG interpreted by me (3pts min.). @ -None X-rays interpreted by me (1pt min.). @ -X-ray of the right hand obtained which shows no evidence of acute fracture CT interpreted by me (1pt min.). @ -None done U/S interpreted by me (1pt. min.). @ -None done What testing was considered but not performed or refused? (CT, X-rays, U/S, labs)? Why? @ -None What meds were considered but not given or refused? Why? @ -None Did you discuss the management of the patient with other professionals (professionals i.e. , PA, LIFE ADVISOR, lab, RT, psych nurse, social media marketer, head piece assembler, teacher, seismology technical officer, manager rn case)? Give summary @ -No Was smoking cessation discussed for >3mins.? @ -No Was critical care preformed (if so, how long)? @ -No Were there social determinants of health that impacted care today? How? (Homelessness, low income, unemployed, alcoholism, drug addiction, transportation, low edu. Level, literacy, decrease access to med. care, correction, rehab)? @ -No Was there de-escalation of care discussed even if they declined (Discuss DNR or withdrawal of care, Hospice)? DNR status @ -No What co-morbidities impacted this encounter? (DM, HTN, Smoking, COPD, CAD, Cancer, CVA, ARF, Chemo, Hep., AIDS, mental health diagnosis, sleep apnea, morbid obesity)? @ -None Was patient admitted / discharged? Hospital course, mention meds given and route, prescriptions, significant lab abnormalities, going to OR and other pertinent info. @ -Discharge. Patient presented to the emergency department for evaluation of right hand injury following a fall. Patient also notes abrasions to both knees. Denies head injury, blood thinners. She has been able to ambulate without limitation. Reports that she is up-to-date on her tetanus vaccination. X-rays of the right hand were obtained which showed no evidence of acute fracture. Discussed findings with patient. Advised rest, ice, elevation, compression, Tylenol and Motrin for swelling and discomfort. Patient is understanding agreeable plan. Patient stable at time of discharge. Case discussed with Dr. Tapia Undiagnosed new problem with uncertain prognosis? @ -No Drug Therapy requiring intensive monitoring for toxicity (Heparin, Nitro, Insulin, Cardizem)? @ -No Were any procedures done? @ -No Diagnosis/symptom? @ -Fall, hand contusion Acute, or Chronic, or Acute on Chronic? @ -Acute Uncomplicated (without systemic symptoms) or Complicated (systemic symptoms)? @ -Uncomplicated Side effects of treatment? @ -No Exacerbation, Progression, or Severe Exacerbation? @ -No Poses a threat to life or bodily function? How? (Chest pain, [place], [place], pneumonia, PE, COPD, DKA, ARF, appy, cholecystitis, CVA, Diverticulitis, Homicidal, Suicidal, threat to staff... and all critical care pts) @ -No Disposition Clinical Impression: Fall, Contusion of hand, right Disposition: HOME SELF-CARE Condition: Stable Instructions (If sedation given, give patient instructions): Fall Prevention (ED) Additional Instructions: Please follow up with your primary care provider. Return to the emergency department for new or worsening symptoms. Is patient prescribed a controlled substance at d/c from ED?: No Referrals: Fernando Oliver MD [Primary Care Provider] - 1-2 days
[2023-10-31 22:25] VITALS: BP 141/99; PULSE 74; RESP 18; TEMP 98
--- NOTE | 2023-10-31 22:39 | XR ---
EXAM: XR Right Hand Complete, 3 or More Views CLINICAL HISTORY: ITS.REASON XR Reason: fall TECHNIQUE: Frontal, lateral and oblique views of the right hand. COMPARISON: No relevant prior studies available. FINDINGS: Bones/joints: Unremarkable. No acute fracture. No dislocation. Soft tissues: Unremarkable. No radiopaque foreign body. IMPRESSION: Normal right hand x-rays.
== END 2023-10-31 23:40 | disposition home or self-care (01) ==
LOC: EC 21:51
DX: S60.221A Contusion of right hand, initial encounter (principal); F17.290 Nicotine dependence, other tobacco product, uncomplicated; F12.90 Cannabis use, unspecified, uncomplicated; Z91.040 Latex allergy status; Z88.8 Allergy status to other drugs, medicaments and biological substances; W01.0XXA Fall on same level from slipping, tripping and stumbling without subsequent striking against object, initial encounter; Y93.01 Activity, walking, marching and hiking
CPT/HCPCS: 99283

== ENCOUNTER 2023-12-26 02:22 | Emergency (ER) | payer OTHER ==
--- NOTE | 2023-12-26 02:53 | ED ---
Nausea/Vomiting/Diarrhea HPI - General Chief complaint: Nausea/Vomiting/Diarrhea Stated complaint: vomiting Time Seen by Provider: 12/26/23 02:30 Source: patient Mode of arrival: ambulatory Limitations: no limitations - History of Present Illness Initial comments: Patient is a 43-year-old woman who presents to evaluation for nausea and vomiting that started approximately 5 hours ago. She states she has had multiple episodes of vomiting and was not able to control this at home. She tried taking Pepcid. The patient has not noted bloody or coffee-ground emesis. There is a little bit of cramping but she denies abdominal pain. No change in bowel movements or urination. MD complaint: nausea, vomiting Onset/Timin -: hour(s) Description of Vomiting: food contents Associated Abdominal Pain: No Severity scale (1-10): 0 Improves with: none Worsens with: none Associated Symptoms: nausea/vomiting - Related Data Home Medications Medication Instructions Recorded Confirmed Albuterol Inhaler [Ventolin Hfa 2 puff INHALATION RT-QID PRN 04/16/22 08/11/22 Inhaler] Buprenorphine HCl/Naloxone HCl 1 film SL BID 04/16/22 08/11/22 [Suboxone 8 mg-2 mg Sl Film] Ergocalciferol [Vitamin D2 (1250 1,250 mcg PO Q7D 04/16/22 08/09/22 Mcg = 92057 Iu)] Levothyroxine Sodium [Synthroid] 25 mcg PO DAILY 04/16/22 08/11/22 cloNIDine HCL [Catapres] 0.1 mg PO BID 04/16/22 08/11/22 LORazepam [Ativan] 0.5 mg PO BID PRN 08/09/22 08/11/22 Lansoprazole [Prevacid] 30 mg PO BID 08/09/22 08/11/22 Previous Rx's Medication Instructions Recorded Meclizine [Antivert] 25 mg PO TID PRN #15 tab 03/24/23 Ondansetron Odt [Zofran ODT] 4 mg PO Q8HR PRN #10 tab 12/26/23 Allergies Allergy/AdvReac Type Severity Reaction Status Date / Time amitriptyline Allergy Rash/Hives Verified 12/26/23 02:26 sumatriptan [From Imitrex] Allergy Anaphylaxis Verified 12/26/23 02:26 latex AdvReac Itching Verified 12/26/23 02:26 Review of Systems ROS Statement: Those systems with pertinent positive or pertinent negative responses have been documented in the HPI. ROS Other: All systems not noted in ROS Statement are negative. Constitutional: Denies: fever, chills Respiratory: Denies: cough, dyspnea Cardiovascular: Denies: chest pain, palpitations Gastrointestinal: Reports: nausea, vomiting. Denies: diarrhea, hematemesis, melena, hematochezia Genitourinary: Denies: dysuria, hematuria Musculoskeletal: Denies: back pain Skin: Denies: rash Neurological: Denies: headache, weakness Past Medical History Past Medical History: Hypertension Additional Past Medical History / Comment(s): anemia 4 blood transfusions bood disorder hep c in remission History of Any Multi-Drug Resistant Organisms: None Reported Past Surgical History: Section, Hysterectomy, Tonsillectomy Past Anesthesia/Blood Transfusion Reactions: No Reported Reaction Past Psychological History: Anxiety, Bipolar Smoking Status: Vaper Past Alcohol Use History: Rare Past Drug Use History: Marijuana General Exam Limitations: no limitations General appearance: alert, in no apparent distress Head exam: Present: atraumatic, normocephalic Eye exam: Present: normal appearance. Absent: scleral icterus, conjunctival injection Neck exam: Present: normal inspection Respiratory exam: Present: normal lung sounds bilaterally. Absent: respiratory distress, wheezes, rales, rhonchi, stridor, accessory muscle use Cardiovascular Exam: Present: regular rate, normal rhythm, normal heart sounds. Absent: systolic murmur, diastolic murmur, rubs, gallop GI/Abdominal exam: Present: soft. Absent: distended, tenderness, guarding, rebound, rigid, mass Extremities exam: Present: normal inspection, normal capillary refill. Absent: pedal edema, calf tenderness Back exam: Present: normal inspection. Absent: CVA tenderness (R), CVA tenderness (L) Neurological exam: Present: alert Skin exam: Present: warm, dry, intact, normal color. Absent: rash Course Vital Signs 12/26/23 12/26/23 12/26/23 02:24 03:03 05:04 Temperature 97.4 F L 98.6 F Pulse Rate 88 71 68 Respiratory 18 13 14 Rate Blood Pressure 134/84 130/78 99/57 O2 Sat by Pulse 96 98 98 Oximetry Medical Decision Making - Medical Decision Making Was pt. sent in by a medical professional or institution (FATOUMATA Montemayor, FIBERGLASS DOWEL DRAWING OPERATOR, urgent care, hospital, or shelter...) When possible be specific @ -[No] Did you speak to anyone other than the patient for history (EMS, parent, family, police, friend...)? What history was obtained from this source @ -[No] Did you review nursing and triage notes (agree or disagree)? Why? @ -[I reviewed and agree with nursing and triage notes] Were old charts reviewed (outside hosp., previous admission, EMS record, old EKG, old radiological studies, urgent care reports/EKG's, shelter records)? Report findings @ -[No old charts were reviewed] Differential Diagnosis (chest pain, altered mental status, abdominal pain women, abdominal pain men, vaginal bleeding, weakness, fever, dyspnea, syncope, headache, dizziness, GI bleed, back pain, seizure, CVA, palpatations, mental health, musculoskeletal)? @ -[Differential Abdominal Pain Women: Appendicitis, Cholecystitis, diverticulosis, ischemic bowel, pancreatitis, hepatitis, UTI, gastroenteritis, AAA, incarcerated hernia, bowel obstruction, constipation, inflammatory bowel, hepatitis, peptic ulcer disease, splenic infarction, perforated viscus, vulvitis, ovarian torsion, PID, kidney stone, placenta abruption, this is not meant to be an all-inclusive list EKG interpreted by me (3pts min.). @ -[As above] X-rays interpreted by me (1pt min.). @ -[None done] CT interpreted by me (1pt min.). @ -[None done] U/S interpreted by me (1pt. min.). @ -[None done] What testing was considered but not performed or refused? (CT, X-rays, U/S, labs)? Why? @ -[None] What meds were considered but not given or refused? Why? @ -[None] Did you discuss the management of the patient with other professionals (professionals i.e. FATOUMATA Montemayor, FIBERGLASS DOWEL DRAWING OPERATOR, lab, RT, psych nurse, social worker assistant, pie maker machine, teacher, court security officer, case monitor)? Give summary @ -[No] Was smoking cessation discussed for >3mins.? @ -[No] Was critical care preformed (if so, how long)? @ -[No] Were there social determinants of health that impacted care today? How? (Homelessness, low income, unemployed, alcoholism, drug addiction, transportation, low edu. Level, literacy, decrease access to med. care, residential, rehab)? @ -[No] Was there de-escalation of care discussed even if they declined (Discuss DNR or withdrawal of care, Hospice)? DNR status @ -[No] What co-morbidities impacted this encounter? (DM, HTN, Smoking, COPD, CAD, Cancer, CVA, ARF, Chemo, Hep., AIDS, mental health diagnosis, sleep apnea, morbid obesity)? @ -[None] Was patient admitted / discharged? Hospital course, mention meds given and route, prescriptions, significant lab abnormalities, going to OR and other pertinent info. @ -[hospital course] Undiagnosed new problem with uncertain prognosis? @ -[No] Drug Therapy requiring intensive monitoring for toxicity (Heparin, Nitro, Insulin, Cardizem)? @ -[No] Were any procedures done? @ -[No] Diagnosis/symptom? @ -[Acute nausea and vomiting Acute, or Chronic, or Acute on Chronic? @ -[Acute Uncomplicated (without systemic symptoms) or Complicated (systemic symptoms)? @ -[Uncomplicated Side effects of treatment? @ -[No] Exacerbation, Progression, or Severe Exacerbation? @ -[No] Poses a threat to life or bodily function? How? (Chest pain, [place], [place], pneumonia, PE, COPD, DKA, ARF, appy, cholecystitis, CVA, Diverticulitis, Homicidal, Suicidal, threat to staff... and all critical care pts) @ -[No] - Lab Data Result diagrams: 12/26/23 03:02 12/26/23 03:02 Lab Results 12/26/23 12/26/23 Range/Units 03:02 03:02 WBC 6.3 (3.8-10.6) k/uL RBC 4.14 (3.80-5.40) m/uL Hgb 11.2 L (11.4-16.0) gm/dL Hct 34.7 (34.0-46.0) % MCV 83.8 (80.0-100.0) fL MCH 27.1 (25.0-35.0) pg MCHC 32.3 (31.0-37.0) g/dL RDW 13.2 (11.5-15.5) % Plt Count 225 (150-450) k/uL MPV 10.0 Neutrophils % 56 % Lymphocytes % 31 % Monocytes % 5 % Eosinophils % 6 % Basophils % 0 % Neutrophils # 3.5 (1.3-7.7) k/uL Lymphocytes # 1.9 (1.0-4.8) k/uL Monocytes # 0.3 (0-1.0) k/uL Eosinophils # 0.4 (0-0.7) k/uL Basophils # 0.0 (0-0.2) k/uL Sodium 140 (137-145) mmol/L Potassium 4.0 (3.5-5.1) mmol/L Chloride 111 H (98-107) mmol/L Carbon Dioxide 22 (22-30) mmol/L Anion Gap 7 mmol/L BUN 17 (7-17) mg/dL Creatinine 0.52 (0.52-1.04) mg/dL Est GFR (CKD-EPI)AfAm >90 (>60 ml/min/1.73 sqM) Est GFR (CKD-EPI)NonAf >90 (>60 ml/min/1.73 sqM) Glucose 118 H (74-99) mg/dL Calcium 8.6 (8.4-10.2) mg/dL Total Bilirubin 0.3 (0.2-1.3) mg/dL AST 20 (14-36) U/L ALT 15 (4-34) U/L Alkaline Phosphatase 59 (38-126) U/L Total Protein 6.3 (6.3-8.2) g/dL Albumin 3.8 (3.5-5.0) g/dL Amylase 65 (30-110) U/L Lipase 81 (23-300) U/L Disposition Clinical Impression: Vomiting Disposition: HOME SELF-CARE Condition: Good Instructions (If sedation given, give patient instructions): Acute Nausea and Vomiting (ED) Prescriptions: Ondansetron Odt [Zofran ODT] 4 mg PO Q8HR PRN #10 tab PRN Reason: Nausea Is patient prescribed a controlled substance at d/c from ED?: No Referrals: Fernando Oliver MD [Primary Care Provider] - 1-2 days
[2023-12-26] MEDS: METOCLOPRAMIDE 5 MG/ML 2 ML VIAL IVP STA (02:58)
[2023-12-26] MEDS: SODIUM CHLORIDE 0.9% 1,000 ML IV ONE (02:58)
[2023-12-26 03:22] LABS: Basophils % (A) 0 %; Eosinophils # (A) 0.4 k/uL (0-0.7); Eosinophils % (A) 6 %; HCT 34.7 % (34.0-46.0); HGB 11.2 gm/dL (11.4-16.0); Lymphocytes # (A) 1.9 k/uL (1.0-4.8); Lymphocytes % (A) 31 %; MCH 27.1 pg (25.0-35.0); MCHC 32.3 g/dL (31.0-37.0); MCV 83.8 fL (80.0-100.0); Monocytes # (A) 0.3 k/uL (0-1.0); Monocytes % (A) 5 %; Neutrophils # (A) 3.5 k/uL (1.3-7.7); Neutrophils % (A) 56 %; Platelet Count 225 k/uL (150-450); RBC 4.14 m/uL (3.80-5.40); RDW 13.2 % (11.5-15.5); WBC 6.3 k/uL (3.8-10.6)
[2023-12-26 03:44] LABS: ALT 15 U/L (4-34); AST 20 U/L (14-36); African American GFR (CKD) >90 (>60 ml/min/1.73 sqM); Albumin 3.8 g/dL (3.5-5.0); Alkaline Phosphatase 59 U/L (38-126); Amylase 65 U/L (30-110); Anion Gap 7 mmol/L; Blood Urea Nitrogen 17 mg/dL (7-17); Calcium 8.6 mg/dL (8.4-10.2); Carbon Dioxide 22 mmol/L (22-30); Chloride 111 mmol/L (98-107); Glucose 118 mg/dL (74-99); Lipase 81 U/L (23-300); Non-African American GFR(CKD) >90 (>60 ml/min/1.73 sqM); Sodium 140 mmol/L (137-145); Total Bilirubin 0.3 mg/dL (0.2-1.3); Total Protein 6.3 g/dL (6.3-8.2)
[2023-12-26 05:06] VITALS: BP 99/57; PULSE 68; RESP 14; TEMP 98.6
== END 2023-12-26 05:04 | disposition home or self-care (01) ==
LOC: EC 02:22
DX: R11.2 Nausea with vomiting, unspecified (principal); F17.290 Nicotine dependence, other tobacco product, uncomplicated; F12.90 Cannabis use, unspecified, uncomplicated; Z91.040 Latex allergy status; Z88.8 Allergy status to other drugs, medicaments and biological substances
CPT/HCPCS: 36415; 80053; 82150; 83690; 85025; 99284; 96374; 96361; J2765

== ENCOUNTER 2024-03-05 15:09 | Observation (INO) | payer OTHER ==
[2024-03-05] MEDS: SODIUM CHLORIDE 0.9% 500 ML 500 ML IV STA (16:07)
[2024-03-05] MEDS: ASPIRIN 81 MG PO STA (16:07)
[2024-03-05 16:08] LABS: Basophils % (A) 1 %; Eosinophils # (A) 0.4 k/uL (0-0.7); Eosinophils % (A) 6 %; HGB 11.4 gm/dL (11.4-16.0); Hypochromasia Slight; Lymphocytes # (A) 2.4 k/uL (1.0-4.8); Lymphocytes % (A) 37 %; MCH 26.9 pg (25.0-35.0); MCHC 32.5 g/dL (31.0-37.0); MCV 82.7 fL (80.0-100.0); Mean Platelet Volume 8.8; Monocytes # (A) 0.3 k/uL (0-1.0); Monocytes % (A) 5 %; Neutrophils # (A) 3.2 k/uL (1.3-7.7); Neutrophils % (A) 50 %; Platelet Count 237 k/uL (150-450); RBC 4.23 m/uL (3.80-5.40); RDW 12.9 % (11.5-15.5); WBC 6.3 k/uL (3.8-10.6)
--- NOTE | 2024-03-05 16:09 | XR ---
EXAMINATION TYPE: XR chest 2V DATE OF EXAM: 03/05/2024 COMPARISON: 03/25/2023 HISTORY: Chest pain TECHNIQUE: Frontal and lateral views of the chest are obtained. FINDINGS: There is no focal air space opacity, pleural effusion, or pneumothorax seen. The cardiac silhouette size is within normal limits. The osseous structures are intact. IMPRESSION: No acute cardiopulmonary process.
[2024-03-05 16:20] LABS: INR 0.9 (<1.2); Partial Thromboplastin Time 24.6 sec (22.0-30.0); Prothrombin Time 10.4 sec (10.0-12.5)
[2024-03-05 16:23] LABS: ALT 22 U/L (4-34); AST 32 U/L (14-36); African American GFR (CKD) >90 (>60 ml/min/1.73 sqM); Albumin 3.9 g/dL (3.5-5.0); Alkaline Phosphatase 57 U/L (38-126); Anion Gap 6 mmol/L; Blood Urea Nitrogen 23 mg/dL (7-17); Calcium 9.1 mg/dL (8.4-10.2); Carbon Dioxide 24 mmol/L (22-30); Chloride 109 mmol/L (98-107); Glucose 105 mg/dL (74-99); Lipase 114 U/L (23-300); Magnesium 1.8 mg/dL (1.6-2.3); Non-African American GFR(CKD) >90 (>60 ml/min/1.73 sqM); Potassium 3.9 mmol/L (3.5-5.1); Sodium 139 mmol/L (137-145); Total Bilirubin 0.4 mg/dL (0.2-1.3); Total Protein 6.5 g/dL (6.3-8.2)
--- NOTE | 2024-03-05 17:45 | ED ---
Chest Pain HPI - General Chief Complaint: Chest Pain Stated Complaint: chest pain Time Seen by Provider: 03/05/24 15:27 Source: patient Mode of arrival: ambulatory Limitations: no limitations - History of Present Illness Initial Comments: 43-year-old female presenting with chief complaint of chest pain. Pain has been ongoing for the last 2 days. Located primarily in the left side of the chest with some radiation to the left arm. She does get shortness of breath with exertion. Denies palpitations, cough, congestion, sore throat, nausea, vomiting, abdominal pain. States that she may be stressed as this is the anniversary of her father's passing. - Related Data Home Medications Medication Instructions Recorded Confirmed Albuterol Inhaler [Ventolin Hfa 2 puff INHALATION RT-QID PRN 04/16/22 03/05/24 Inhaler] Buprenorphine HCl/Naloxone HCl 1 film SL TID 04/16/22 03/05/24 [Suboxone 8 mg-2 mg Sl Film] Ergocalciferol [Vitamin D2 (1250 1,250 mcg PO Q30D 04/16/22 03/05/24 Mcg = 98585 Iu)] Levothyroxine Sodium [Synthroid] 25 mcg PO DAILY 04/16/22 03/05/24 cloNIDine HCL [Catapres] 0.1 mg PO TID 04/16/22 03/05/24 Lansoprazole [Prevacid] 30 mg PO BID 08/09/22 03/05/24 Cetirizine HCl [Zyrtec] 10 mg PO DAILY 03/05/24 03/05/24 Fluticasone/Umeclidin/Vilanter 1 puff INHALATION RT-DAILY 03/05/24 03/05/24 [Trelegy Ellipta 200-62.5-25] Ibuprofen [Motrin] 800 mg PO BID 03/05/24 03/05/24 clonazePAM [KlonoPIN] 0.5 mg PO TID 03/05/24 03/05/24 Previous Rx's Medication Instructions Recorded Meclizine [Antivert] 25 mg PO TID PRN #15 tab 03/24/23 Ondansetron Odt [Zofran ODT] 4 mg PO Q8HR PRN #10 tab 12/26/23 Allergies Allergy/AdvReac Type Severity Reaction Status Date / Time amitriptyline Allergy Rash/Hives/ Verified 03/05/24 16:54 Confusion sumatriptan [From Imitrex] Allergy Anaphylaxis Verified 03/05/24 16:54 latex AdvReac Itching Verified 03/05/24 16:54 Review of Systems ROS Statement: Those systems with pertinent positive or pertinent negative responses have been documented in the HPI. ROS Other: All systems not noted in ROS Statement are negative. Past Medical History Past Medical History: Hypertension Additional Past Medical History / Comment(s): anemia 4 blood transfusions bood disorder hep c in remission History of Any Multi-Drug Resistant Organisms: None Reported Past Surgical History: Section, Hysterectomy, Tonsillectomy Past Anesthesia/Blood Transfusion Reactions: No Reported Reaction Past Psychological History: Anxiety, Bipolar Smoking Status: Vaper Past Alcohol Use History: Rare Past Drug Use History: Marijuana General Exam Limitations: no limitations General appearance: alert, in no apparent distress Head exam: Present: atraumatic, normocephalic Eye exam: Present: normal appearance, EOMI Neck exam: Present: normal inspection. Absent: meningismus Respiratory exam: Present: normal lung sounds bilaterally. Absent: respiratory distress, wheezes, rales, rhonchi, stridor Cardiovascular Exam: Present: regular rate, normal rhythm, normal heart sounds. Absent: systolic murmur, diastolic murmur, rubs, gallop, clicks Neurological exam: Present: alert, oriented X3 Psychiatric exam: Present: normal affect, normal mood Skin exam: Present: warm, dry Course Vital Signs 03/05/24 03/05/24 03/05/24 15:18 16:46 19:03 Temperature 97.5 F L Pulse Rate 76 65 61 Respiratory 16 18 18 Rate Blood Pressure 128/91 133/83 153/87 O2 Sat by Pulse 98 98 98 Oximetry 03/05/24 22:12 Temperature Pulse Rate 71 Respiratory 18 Rate Blood Pressure 140/96 O2 Sat by Pulse 99 Oximetry Chest Pain MDM - MDM Was pt. sent in by a medical professional or institution (FATOUMATA Montemayor, MULTIPLE PUNCH PRESS OPERATOR, urgent care, hospital, or usp...) When possible be specific @ -No Did you speak to anyone other than the patient for history (EMS, parent, family, police, friend...)? What history was obtained from this source @ -No Did you review nursing and triage notes (agree or disagree)? Why? @ -I reviewed and agree with nursing and triage notes Were old charts reviewed (outside hosp., previous admission, EMS record, old EKG, old radiological studies, urgent care reports/EKG's, usp records)? Report findings @ -No old charts were reviewed Differential Diagnosis (chest pain, altered mental status, abdominal pain women, abdominal pain men, vaginal bleeding, weakness, fever, dyspnea, syncope, headache, dizziness, GI bleed, back pain, seizure, CVA, palpatations, mental health, musculoskeletal)? @ -MDM Differential Chest Pain: Stable Angina, Unstable Angina, STEMI, NSTEMI Aortic Dissection, Pneumothorax, Musculoskeletal, Esophageal Spasm GERD, Cholecystitis, Pancreatitis, Zoster This is not meant to be an all-inclusive list. EKG interpreted by me (3pts min.). @ -EG shows sinus rhythm ventricular rate 69. OH interval 176. QRS 99. QT 407. QTc 427. X-rays interpreted by me (1pt min.). @ -Chest x-ray shows no acute cardiopulmonary process CT interpreted by me (1pt min.). @ -None done U/S interpreted by me (1pt. min.). @ -None done What testing was considered but not performed or refused? (CT, X-rays, U/S, labs)? Why? @ -None What meds were considered but not given or refused? Why? @ -None Did you discuss the management of the patient with other professionals (professionals i.e. , PA, MULTIPLE PUNCH PRESS OPERATOR, lab, RT, psych nurse, social media analyst, flare man, teacher, state patrol officer, case management coordinator)? Give summary @ -I spoke with Dr. Oliver who accepts admission. States that he will see the patient in the morning and she does not need a cardiology consult at this time Was smoking cessation discussed for >3mins.? @ -No Was critical care preformed (if so, how long)? @ -No Were there social determinants of health that impacted care today? How? (Homelessness, low income, unemployed, alcoholism, drug addiction, transportation, low edu. Level, literacy, decrease access to med. care, detention, rehab)? @ -No Was there de-escalation of care discussed even if they declined (Discuss DNR or withdrawal of care, Hospice)? DNR status @ -No What co-morbidities impacted this encounter? (DM, HTN, Smoking, COPD, CAD, Cancer, CVA, ARF, Chemo, Hep., AIDS, mental health diagnosis, sleep apnea, morbid obesity)? @ -None Was patient admitted / discharged? Hospital course, mention meds given and route, prescriptions, significant lab abnormalities, going to OR and other pertinent info. @ -43-year-old female presenting with chief complaint of chest pain. History and physical exam are conducted. Lab work shows no leukocytosis or anemia. Negative troponin. Negative for influenza, RSV, COVID. Negative chest x-ray. EKG shows sinus rhythm. Patient will be admitted for observation and trending of troponins. She is agreeable with this plan. I discussed this case with my attending Dr. Arnold Undiagnosed new problem with uncertain prognosis? @ -No Drug Therapy requiring intensive monitoring for toxicity (Heparin, Nitro, Insulin, Cardizem)? @ -No Were any procedures done? @ -No Diagnosis/symptom? @ -Chest pain Acute, or Chronic, or Acute on Chronic? @ -Acute Uncomplicated (without systemic symptoms) or Complicated (systemic symptoms)? @ -Complicated Side effects of treatment? @ -No Exacerbation, Progression, or Severe Exacerbation? @ -No Poses a threat to life or bodily function? How? (Chest pain, USA, [place], pneumonia, PE, COPD, DKA, ARF, appy, cholecystitis, CVA, Diverticulitis, Homicidal, Suicidal, threat to staff... and all critical care pts) @ -Potential Disposition Clinical Impression: Chest pain Disposition: ADMITTED IP TO THIS HOSP Condition: Fair Time of Disposition: 17:45
[2024-03-05] MEDS ORDERED: NALOXONE 0.4 MG/ML 1 ML VIAL IV PRN (18:28)
[2024-03-05] MEDS: SODIUM CHLORIDE 0.9% 1,000 ML IV SCH (18:39)
[2024-03-06] MEDS: ACETAMINOPHEN TAB 325 MG TAB PO PRN (13:57)
[2024-03-06] MEDS: IBUPROFEN 400 MG TAB PO PRN (13:58)
[2024-03-06] MEDS: clonazePAM 0.5 MG TAB PO STA (18:41)
[2024-03-06] MEDS: clonazePAM 0.5 MG TAB PO SCH (19:43)
[2024-03-06] MEDS: NON FORMULARY DRUG (Buprenorphine Hcl/Naloxone Hcl [Suboxone 8 Mg-2 Mg Sl Film] 1 EACH Fil SUBLINGUAL SCH (21:19)
[2024-03-06] MEDS: cloNIDine HCL 0.1 MG TAB PO SCH (21:19)
[2024-03-07 07:55] VITALS: RESP 16
[2024-03-07] MEDS: LEVOTHYROXINE 25 MCG TAB PO SCH (08:26)
[2024-03-07 14:55] VITALS: BP 116/83; PULSE 86; TEMP 97.9
[2024-03-07] MEDS: NON FORMULARY DRUG (Buprenorphine Hcl/Naloxone Hcl [Suboxone 8 Mg-2 Mg Sl Film] 1 EACH Fil SUBLINGUAL SCH (15:38)
--- NOTE | 2024-03-14 15:10 | PN ---
PROGRESS NOTE DATE OF SERVICE: 03/06/2024 CHIEF COMPLAINT: Chest pain. HISTORY OF PRESENT ILLNESS: This lady is doing fairly well. Enzymes have been normal. PHYSICAL EXAMINATION: VITALS: Her blood pressure has come down. CHEST: Clear. CARDIAC: Normal. ABDOMEN: Soft, nontender. IMPRESSION: 1. Chest pain, likely due to anxiety. 2. Labile hypertension. 3. Depression. PLAN: Progress activity and continue to monitor blood pressure and enzymes. MMODL / IJN: [id number] /
--- NOTE | 2024-03-14 15:21 | DS ---
DISCHARGE SUMMARY CHIEF COMPLAINT: Chest pain. HISTORY OF PRESENT ILLNESS AND PHYSICAL EXAM: Details of this lady's history and physical can be found in the initial workup. LABORATORY STUDIES: Can be found in the laboratory section of her chart, all of which were normal. COURSE IN THE HOSPITAL: After admission, she was placed on bedrest and she had serial EKGs and enzymes and they were all normal. Her symptoms were not typical for heart symptoms and enzymes were normal. She is doing well and felt that she could be discharged and she will be followed up in the office in a week. She will go home on her usual activity, diet, as well as medication. She is under a great deal of stress both at home and at work and she feels that this is what caused her issue. FINAL DIAGNOSES: 1. Chest pain. 2. Anxiety. 3. Depression. 4. Hypertension. OPERATIONS: None. CONSULTATIONS: None. She is improved. MMODL / IJN: [id number] /
--- NOTE | 2024-03-14 15:46 | HP ---
HISTORY AND PHYSICAL CHIEF COMPLAINT: Chest pain. HISTORY OF PRESENT ILLNESS: This is another admission for this 43-year-old female, who is subjected to quite a bit of stress and depression. She was at work when she suddenly began headache. She experienced some left upper anterior chest wall pain. She felt a little bit short of breath. She was lightheaded, but she was not diaphoretic. They decided to send her to the emergency room where her EKG and enzymes are normal. REVIEW OF SYSTEMS: She has had no fever, cough, hemoptysis, injury to chest wall, etc. At work, her blood pressure went as high as 190/110. Normally, her blood pressure is under good control. PHYSICAL EXAMINATION: VITAL SIGNS: Blood pressure is 190/110, pulse is 93, respirations of 38, and she is afebrile. GENERAL: She appeared to be anxious. SKIN: Color is normal. Skin is dry. HEAD, EARS, EYES, NOSE, MOUTH, AND THROAT: Normal. CHEST: Chest wall is nontender. CARDIAC: Normal. EXTREMITIES: Normal. NEUROLOGIC: She is intact. She was admitted to the hospital. DIAGNOSES: 1. Atypical chest pain. 2. Acute exacerbation of hypertension. 3. Anxiety. PLAN: 1. Bedrest. 2. IV fluids. 3. Serial EKGs and enzymes. 4. Monitor blood pressure. MMODL / IJN: [id number] /
== END 2024-03-07 17:10 | disposition home or self-care (01) ==
LOC: EC 15:09 → 6NMEDSUR 17:37
PROVIDERS: ADMIT Family Medicine; ATTEND Family Medicine
DX: R07.89 Other chest pain (principal); I10 Essential (primary) hypertension; R42 Dizziness and giddiness; F41.9 Anxiety disorder, unspecified; F17.290 Nicotine dependence, other tobacco product, uncomplicated; Z79.890 Hormone replacement therapy; Z79.51 Long term (current) use of inhaled steroids; Z79.1 Long term (current) use of non-steroidal anti-inflammatories (NSAID); Z79.899 Other long term (current) drug therapy; Z88.8 Allergy status to other drugs, medicaments and biological substances; Z91.040 Latex allergy status
CPT/HCPCS: 36415; 71046; 80053; 83690; 83735; 84484; 85025; 85610; 85730; 87636; 93005; 96360; 96361; 99285

== ENCOUNTER 2024-07-25 07:55 | Emergency (ER) | payer OTHER ==
[2024-07-25 07:59] VITALS: RESP 18
--- NOTE | 2024-07-25 08:11 | ED ---
General Adult HPI - General Chief complaint: Nausea/Vomiting/Diarrhea Stated complaint: Vomiting Time Seen by Provider: 07/25/24 08:01 Source: patient, family, RN notes reviewed Mode of arrival: ambulatory Limitations: no limitations - History of Present Illness Initial comments: Patient is a 43-year-old female present to the emergency department not feeling well. Symptoms have been occurring for the past 3 days or so. Patient has congestion and cough. No dyspnea. Patient is having headache, patient has history of prior headaches. Patient is having nausea and vomiting. No abdominal pain. No urinary symptoms changes. - Related Data Home Medications Medication Instructions Recorded Confirmed Albuterol Inhaler [Ventolin Hfa 2 puff INHALATION RT-QID PRN 04/16/22 03/05/24 Inhaler] Buprenorphine HCl/Naloxone HCl 1 film SL TID 04/16/22 03/05/24 [Suboxone 8 mg-2 mg Sl Film] Ergocalciferol [Vitamin D2 (1250 1,250 mcg PO Q30D 04/16/22 03/05/24 Mcg = 29487 Iu)] Levothyroxine Sodium [Synthroid] 25 mcg PO DAILY 04/16/22 03/05/24 cloNIDine HCL [Catapres] 0.1 mg PO TID 04/16/22 03/05/24 Lansoprazole [Prevacid] 30 mg PO BID 08/09/22 03/05/24 Cetirizine HCl [Zyrtec] 10 mg PO DAILY 03/05/24 03/05/24 Fluticasone/Umeclidin/Vilanter 1 puff INHALATION RT-DAILY 03/05/24 03/05/24 [Trelegy Ellipta 200-62.5-25] Ibuprofen [Motrin] 800 mg PO BID 03/05/24 03/05/24 clonazePAM [KlonoPIN] 0.5 mg PO TID 03/05/24 03/05/24 Previous Rx's Medication Instructions Recorded Meclizine [Antivert] 25 mg PO TID PRN #15 tab 03/24/23 Ondansetron Odt [Zofran ODT] 4 mg PO Q8HR PRN #10 tab 12/26/23 Ondansetron Odt [Zofran Odt] 4 mg PO Q8HR PRN #10 tab 07/25/24 Allergies Allergy/AdvReac Type Severity Reaction Status Date / Time adhesive tape Allergy Itching Verified 07/25/24 08:00 amitriptyline Allergy Rash/Hives/ Verified 03/05/24 16:54 Confusion sumatriptan [From Imitrex] Allergy Anaphylaxis Verified 03/05/24 16:54 Review of Systems ROS Statement: Those systems with pertinent positive or pertinent negative responses have been documented in the HPI. ROS Other: All systems not noted in ROS Statement are negative. Constitutional: Reports: fever (102 yesterday), chills Eyes: Denies: eye pain ENT: Denies: ear pain Respiratory: Reports: cough. Denies: dyspnea Cardiovascular: Denies: chest pain Endocrine: Reports: fatigue Gastrointestinal: Reports: nausea, vomiting. Denies: abdominal pain, diarrhea Musculoskeletal: Denies: back pain Past Medical History Past Medical History: Hypertension Additional Past Medical History / Comment(s): anemia 4 blood transfusions bood disorder hep c in remission History of Any Multi-Drug Resistant Organisms: None Reported Past Surgical History: Section, Hysterectomy, Tonsillectomy Past Anesthesia/Blood Transfusion Reactions: No Reported Reaction Past Psychological History: Anxiety, Bipolar Smoking Status: Vaper Past Alcohol Use History: Rare Past Drug Use History: Marijuana General Exam Limitations: no limitations General appearance: alert, in no apparent distress Head exam: Present: normocephalic Eye exam: Present: normal appearance ENT exam: Present: normal oropharynx Neck exam: Present: normal inspection Respiratory exam: Present: normal lung sounds bilaterally Cardiovascular Exam: Present: regular rate, normal rhythm GI/Abdominal exam: Present: soft. Absent: distended, tenderness, pulsatile mass Extremities exam: Present: normal inspection Neurological exam: Present: alert Psychiatric exam: Present: normal affect, normal mood Skin exam: Present: normal color Course Vital Signs 07/25/24 07/25/24 07:57 10:00 Temperature 97.8 F 97.9 F Pulse Rate 82 80 Respiratory 18 18 Rate Blood Pressure 122/88 125/86 O2 Sat by Pulse 100 Oximetry Medical Decision Making - Medical Decision Making Was pt. sent in by a medical professional or institution (, PA, OPERATIONS CONSULTANT, urgent care, hospital, or long term...) When possible be specific @ -No Did you speak to anyone other than the patient for history (EMS, parent, family, police, friend...)? What history was obtained from this source @ -No Did you review nursing and triage notes (agree or disagree)? Why? @ -I reviewed and agree with nursing and triage notes Were old charts reviewed (outside hosp., previous admission, EMS record, old EKG, old radiological studies, urgent care reports/EKG's, long term records)? Report findings @ -No old charts were reviewed Differential Diagnosis (chest pain, altered mental status, abdominal pain women, abdominal pain men, vaginal bleeding, weakness, fever, dyspnea, syncope, headache, dizziness, GI bleed, back pain, seizure, CVA, palpatations, mental health, musculoskeletal)? @ -Differential Fever: Pneumonia, viral URI, endocarditis, myocarditis, pericarditis, otitis, sinusitis, peritonsillar Abscess, retropharyngeal Abscess, epiglottitis, peritonitis, appendicitis, Pinky cystitis, diverticulitis, hepatitis, colitis, UTI, PID, TOA, pyelonephritis, prostatitis, epididymitis, meningitis, encephalitis, pulmonary embolism, CVA, thyroid storm, pancreatitis, adrenal crisis, cavernous sinus thrombosis, this is not meant to be an all-inclusive list. EKG interpreted by me (3pts min.). @ -As above X-rays interpreted by me (1pt min.). @ -Chest x-ray shows no acute process CT interpreted by me (1pt min.). @ -None done U/S interpreted by me (1pt. min.). @ -None done What testing was considered but not performed or refused? (CT, X-rays, U/S, labs)? Why? @ -Considered CT scan of the head however patient states symptoms are similar to chronic headaches What meds were considered but not given or refused? Why? @ -None Did you discuss the management of the patient with other professionals (professionals i.e. , PA, OPERATIONS CONSULTANT, lab, RT, psych nurse, health social work professor, carpenter maintenance, teacher, hazard mitigation officer, case supervisor)? Give summary @ -No Was smoking cessation discussed for >3mins.? @ -No Was critical care preformed (if so, how long)? @ -No Were there social determinants of health that impacted care today? How? (Homelessness, low income, unemployed, alcoholism, drug addiction, transportation, low edu. Level, literacy, decrease access to med. care, detention, rehab)? @ -No Was there de-escalation of care discussed even if they declined (Discuss DNR or withdrawal of care, Hospice)? DNR status @ -No What co-morbidities impacted this encounter? (DM, HTN, Smoking, COPD, CAD, Cancer, CVA, ARF, Chemo, Hep., AIDS, mental health diagnosis, sleep apnea, morbid obesity)? @ -History of chronic headaches Was patient admitted / discharged? Hospital course, mention meds given and route, prescriptions, significant lab abnormalities, going to OR and other pertinent info. @ -Patient presents with concerns for congestion, nausea vomiting and headache. On reevaluation patient feels much better, nausea resolved and still has a headache. Patient does request further medication for her headache and this will be provided. Patient has mild dehydration on evaluation. Patient is updated on results and need for follow-up Undiagnosed new problem with uncertain prognosis? @ -No Drug Therapy requiring intensive monitoring for toxicity (Heparin, Nitro, Insulin, Cardizem)? @ -No Were any procedures done? @ -No Diagnosis/symptom? @ -Upper respiratory infection, headache, vomiting Acute, or Chronic, or Acute on Chronic? @ -Acute, acute, acute Uncomplicated (without systemic symptoms) or Complicated (systemic symptoms)? @ -Default Side effects of treatment? @ -No Exacerbation, Progression, or Severe Exacerbation? @ -No Poses a threat to life or bodily function? How? (Chest pain, [place], [place], pneumonia, PE, COPD, DKA, ARF, appy, cholecystitis, CVA, Diverticulitis, Homicidal, Suicidal, threat to staff... and all critical care pts) @ -No - Lab Data Result diagrams: 07/25/24 08:24 07/25/24 08:24 Lab Results 07/25/24 07/25/24 07/25/24 Range/Units 08:24 08:24 08:24 WBC 9.9 (3.8-10.6) k/uL RBC 4.57 (3.80-5.40) m/uL Hgb 12.2 (11.4-16.0) gm/dL Hct 37.2 (34.0-46.0) % MCV 81.3 (80.0-100.0) fL MCH 26.7 (25.0-35.0) pg MCHC 32.8 (31.0-37.0) g/dL RDW 13.7 (11.5-15.5) % Plt Count 235 (150-450) k/uL MPV 9.5 Neutrophils % 79 % Lymphocytes % 12 % Monocytes % 4 % Eosinophils % 4 % Basophils % 0 % Neutrophils # 7.9 H (1.3-7.7) k/uL Lymphocytes # 1.2 (1.0-4.8) k/uL Monocytes # 0.4 (0-1.0) k/uL Eosinophils # 0.4 (0-0.7) k/uL Basophils # 0.0 (0-0.2) k/uL Sodium 141 (137-145) mmol/L Potassium 4.1 (3.5-5.1) mmol/L Chloride 108 H (98-107) mmol/L Carbon Dioxide 22 (22-30) mmol/L Anion Gap 11 mmol/L BUN 29 H (7-17) mg/dL Creatinine 0.77 (0.52-1.04) mg/dL Est GFR (CKD-EPI)AfAm >90 (>60 ml/min/1.73 sqM) Est GFR (CKD-EPI)NonAf >90 (>60 ml/min/1.73 sqM) Glucose 110 H (74-99) mg/dL Calcium 8.9 (8.4-10.2) mg/dL Total Bilirubin 0.5 (0.2-1.3) mg/dL AST 24 (14-36) U/L ALT 15 (4-34) U/L Alkaline Phosphatase 59 (38-126) U/L Total Protein 7.2 (6.3-8.2) g/dL Albumin 4.3 (3.5-5.0) g/dL Amylase 48 (30-110) U/L Lipase 64 (23-300) U/L Influenza Type A (PCR) Not Detected (Not Detectd) Influenza Type B (PCR) Not Detected (Not Detectd) RSV (PCR) Not Detected (Not Detectd) SARS-CoV-2 (PCR) Not Detected (Not Detectd) Disposition Clinical Impression: Upper respiratory infection, Vomiting Disposition: HOME SELF-CARE Condition: Stable Instructions (If sedation given, give patient instructions): Acute Nausea and Vomiting (ED) Additional Instructions: Prescription for nausea medicine has been sent to pharmacy. Please do follow-up with your primary care physician in the next day or 2 for recheck. Return for difficulty in breathing, fevers, not tolerating oral intake, worsening symptoms or other concerns. Prescriptions: Ondansetron Odt [Zofran Odt] 4 mg PO Q8HR PRN #10 tab PRN Reason: Nausea Is patient prescribed a controlled substance at d/c from ED?: No Referrals: Fernando Oliver MD [Primary Care Provider] - 1-2 days Time of Disposition: 10:28
[2024-07-25 08:40] LABS: Basophils % (A) 0 %; Eosinophils # (A) 0.4 k/uL (0-0.7); Eosinophils % (A) 4 %; HCT 37.2 % (34.0-46.0); HGB 12.2 gm/dL (11.4-16.0); Lymphocytes # (A) 1.2 k/uL (1.0-4.8); Lymphocytes % (A) 12 %; MCH 26.7 pg (25.0-35.0); MCHC 32.8 g/dL (31.0-37.0); MCV 81.3 fL (80.0-100.0); Mean Platelet Volume 9.5; Monocytes # (A) 0.4 k/uL (0-1.0); Monocytes % (A) 4 %; Neutrophils # (A) 7.9 k/uL (1.3-7.7); Neutrophils % (A) 79 %; Platelet Count 235 k/uL (150-450); RBC 4.57 m/uL (3.80-5.40); RDW 13.7 % (11.5-15.5); WBC 9.9 k/uL (3.8-10.6)
[2024-07-25] MEDS: SODIUM CHLORIDE 0.9% 1,000 ML IV STA (08:46)
[2024-07-25] MEDS: ACETAMINOPHEN IV (For NPO) 1,000 MG in EMPTY BAG 1 BAG IVPB STA (08:47)
--- NOTE | 2024-07-25 08:48 | XR ---
EXAMINATION TYPE: XR chest 2V DATE OF EXAM: 07/25/2024 8:45 AM COMPARISON: Chest radiographs from 03/05/2024. CLINICAL INDICATION: Female, 43 years old with history of cough; TECHNIQUE: XR chest 2V Frontal and lateral views of the chest. FINDINGS: Lungs/Pleura: There is no evidence of pleural effusion, focal consolidation, or pneumothorax. Pulmonary vascularity: Unremarkable. Heart/mediastinum: Cardiomediastinal silhouette is unremarkable. Musculoskeletal: No acute osseous pathology. IMPRESSION: No acute cardiopulmonary disease/process. [facility], , 07/25/2024 8:46 AM
[2024-07-25 08:54] LABS: ALT 15 U/L (4-34); African American GFR (CKD) >90 (>60 ml/min/1.73 sqM); Albumin 4.3 g/dL (3.5-5.0); Amylase 48 U/L (30-110); Anion Gap 11 mmol/L; Blood Urea Nitrogen 29 mg/dL (7-17); Calcium 8.9 mg/dL (8.4-10.2); Carbon Dioxide 22 mmol/L (22-30); Chloride 108 mmol/L (98-107); Glucose 110 mg/dL (74-99); Lipase 64 U/L (23-300); Non-African American GFR(CKD) >90 (>60 ml/min/1.73 sqM); Sodium 141 mmol/L (137-145); Total Bilirubin 0.5 mg/dL (0.2-1.3); Total Protein 7.2 g/dL (6.3-8.2)
[2024-07-25] MEDS: FAMOTIDINE 20 MG/2 ML VIAL IV STA (09:00)
[2024-07-25] MEDS: METOCLOPRAMIDE 5 MG/ML 2 ML VIAL IVP STA (09:01)
[2024-07-25 09:15] LABS: Influenza A Not Detected (Not Detectd); Influenza B Not Detected (Not Detectd); RSV Not Detected (Not Detectd)
[2024-07-25 09:19] LABS: AST 24 U/L (14-36); Alkaline Phosphatase 59 U/L (38-126); Potassium 4.1 mmol/L (3.5-5.1)
[2024-07-25 10:19] VITALS: TEMP 97.9
[2024-07-25] MEDS: KETOROLAC 15 MG/ML 1 ML VIAL IVP STA (10:35)
[2024-07-25 10:36] VITALS: BP 130/86; PULSE 75
[2024-07-25] MEDS: diphenhydrAMINE 50 MG/ML 1 ML VIAL IVP STA (10:36)
== END 2024-07-25 10:50 | disposition home or self-care (01) ==
LOC: EC 07:55
DX: J06.9 Acute upper respiratory infection, unspecified (principal); R11.2 Nausea with vomiting, unspecified; R51.9 Headache, unspecified; F17.290 Nicotine dependence, other tobacco product, uncomplicated; Z91.048 Other nonmedicinal substance allergy status; Z88.1 Allergy status to other antibiotic agents; Z88.8 Allergy status to other drugs, medicaments and biological substances
CPT/HCPCS: 36415; 80053; 82150; 83690; 85025; 87636; 71046; 99284; 96365; 96375 ×4; J1200; J2765; J3490; J0131; J1885

== ENCOUNTER 2024-09-05 16:44 | Emergency (ER) | payer OTHER ==
[2024-09-05 17:10] VITALS: TEMP 97.7
[2024-09-05 17:56] LABS: Basophils # (A) 0.1 k/uL (0-0.2); Basophils % (A) 0 %; Eosinophils # (A) 0.4 k/uL (0-0.7); Eosinophils % (A) 3 %; HCT 44.1 % (34.0-46.0); Lymphocytes % (A) 23 %; MCH 26.4 pg (25.0-35.0); MCHC 31.6 g/dL (31.0-37.0); MCV 83.5 fL (80.0-100.0); Mean Platelet Volume 9.7; Monocytes # (A) 0.4 k/uL (0-1.0); Monocytes % (A) 3 %; Neutrophils # (A) 8.9 k/uL (1.3-7.7); Neutrophils % (A) 68 %; Platelet Count 298 k/uL (150-450); RBC 5.28 m/uL (3.80-5.40); RDW 13.6 % (11.5-15.5); WBC 13.1 k/uL (3.8-10.6)
--- NOTE | 2024-09-05 18:05 | ED ---
Abdominal Pain HPI - General Chief Complaint: Urogenital Stated Complaint: kidney stone Time Seen by Provider: 09/05/24 17:11 Source: patient, RN notes reviewed Mode of arrival: wheelchair Limitations: no limitations - History of Present Illness Initial Comments: This is a 43-year-old female who presents to the emergency department for left- sided abdominal pain and flank pain. States that it started yesterday. She followed up with her PCP today and they tested her urine. She was told that there was blood in it and she was advised to come here for evaluation of a possible kidney stone. She does have associated nausea but no vomiting. States that she had a kidney stone about a year ago but this feels different. MD Complaint: abdominal pain - Related Data Home Medications Medication Instructions Recorded Confirmed Albuterol Inhaler [Ventolin Hfa 2 puff INHALATION RT-QID PRN 04/16/22 03/05/24 Inhaler] Buprenorphine HCl/Naloxone HCl 1 film SL TID 04/16/22 03/05/24 [Suboxone 8 mg-2 mg Sl Film] Ergocalciferol [Vitamin D2 (1250 1,250 mcg PO Q30D 04/16/22 03/05/24 Mcg = 45829 Iu)] Levothyroxine Sodium [Synthroid] 25 mcg PO DAILY 04/16/22 03/05/24 cloNIDine HCL [Catapres] 0.1 mg PO TID 04/16/22 03/05/24 Lansoprazole [Prevacid] 30 mg PO BID 08/09/22 03/05/24 Cetirizine HCl [Zyrtec] 10 mg PO DAILY 03/05/24 03/05/24 Fluticasone/Umeclidin/Vilanter 1 puff INHALATION RT-DAILY 03/05/24 03/05/24 [Trelegy Ellipta 200-62.5-25] Ibuprofen [Motrin] 800 mg PO BID 03/05/24 03/05/24 clonazePAM [KlonoPIN] 0.5 mg PO TID 03/05/24 03/05/24 Previous Rx's Medication Instructions Recorded Meclizine [Antivert] 25 mg PO TID PRN #15 tab 03/24/23 Ondansetron Odt [Zofran ODT] 4 mg PO Q8HR PRN #10 tab 12/26/23 Ondansetron Odt [Zofran Odt] 4 mg PO Q8HR PRN #10 tab 07/25/24 Ketorolac [Toradol] 10 mg PO Q6HR PRN #15 tab 09/06/24 Ondansetron Odt [Zofran Odt] 4 mg PO Q8HR PRN #20 tab 09/06/24 methocarbamoL [Robaxin-750] 1,500 mg PO TID PRN #30 tab 09/06/24 Allergies Allergy/AdvReac Type Severity Reaction Status Date / Time adhesive tape Allergy Itching Verified 09/05/24 17:10 amitriptyline Allergy Rash/Hives/ Verified 09/05/24 17:10 Confusion sumatriptan [From Imitrex] Allergy Anaphylaxis Verified 09/05/24 17:10 Review of Systems ROS Statement: Those systems with pertinent positive or pertinent negative responses have been documented in the HPI. ROS Other: All systems not noted in ROS Statement are negative. Past Medical History Past Medical History: Hypertension Additional Past Medical History / Comment(s): anemia 4 blood transfusions bood disorder hep c in remission History of Any Multi-Drug Resistant Organisms: None Reported Past Surgical History: Section, Hysterectomy, Tonsillectomy Past Anesthesia/Blood Transfusion Reactions: No Reported Reaction Past Psychological History: Anxiety, Bipolar Smoking Status: Vaper Past Alcohol Use History: Rare Past Drug Use History: Marijuana General Exam Limitations: no limitations General appearance: alert, in no apparent distress Head exam: Present: atraumatic, normocephalic, normal inspection Respiratory exam: Present: normal lung sounds bilaterally. Absent: respiratory distress, wheezes, rales, rhonchi, stridor Cardiovascular Exam: Present: regular rate, normal rhythm, normal heart sounds. Absent: systolic murmur, diastolic murmur, rubs, gallop, clicks GI/Abdominal exam: Present: soft, tenderness (Left lower abdomen), normal bowel sounds. Absent: distended Back exam: Present: CVA tenderness (L). Absent: CVA tenderness (R) Neurological exam: Present: alert, oriented X3, CN II-XII intact Psychiatric exam: Present: normal affect, normal mood Skin exam: Present: warm, dry, intact, normal color. Absent: rash Course Vital Signs 09/05/24 09/05/24 17:07 22:05 Temperature 97.7 F Pulse Rate 81 76 Respiratory 18 18 Rate Blood Pressure 139/95 134/82 O2 Sat by Pulse 99 100 Oximetry Medical Decision Making - Medical Decision Making This is a 43-year-old female who presents to the emergency department for abdominal pain. Was pt. sent in by a medical professional or institution? @ -No Did you speak to anyone other than the patient for history? @ -No Did you review nursing and triage notes? @ -Yes, and I agree, it is accurate with regards to the patient's symptoms. Were old charts reviewed? @ -No Differential Diagnosis? @ -Differential Abdominal Pain Women: Appendicitis, Cholecystitis, diverticulosis, ischemic bowel, pancreatitis, hepatitis, UTI, gastroenteritis, AAA, incarcerated hernia, bowel obstruction, constipation, inflammatory bowel, hepatitis, peptic ulcer disease, splenic infarction, perforated viscus, vulvitis, ovarian torsion, PID, kidney stone, placenta abruption, this is not meant to be an all-inclusive list EKG interpreted by me (3pts min.)? @ -Not obtained X-rays interpreted by me (1pt min.)? @ -Not obtained CT interpreted by me (1pt min.)? @ -CT scan of the abdomen and pelvis obtained. My interpretation identifies no ureteral calculus. U/S interpreted by me (1pt. min.)? @ -Transvaginal ultrasound obtained. My interpretation identifies no evidence of an ovarian torsion. What testing was considered but not performed? (CT, X-rays, U/S, labs)? Why? @ -None What meds were considered but not given? Why? @ -None Did you discuss the management of the patient with other professionals? @ -No Did you reconcile home meds? @ -No Was smoking cessation discussed for >3mins.? @ -No Was critical care preformed (if so, how long)? @ -No Were there social determinants of health that impacted care today? How? (Homelessness, low income, unemployed, alcoholism, drug addiction, transportation, low edu. Level, literacy, decrease access to med. care, long-term, rehab)? @ -No Was there de-escalation of care discussed even if they declined? (Discuss DNR or withdrawal of care, Hospice)? @ -No What co-morbidities impacted this encounter? (DM, HTN, Smoking, COPD, CAD, Cancer, CVA, Hep., AIDS, mental health diagnosis, sleep apnea, morbid obesity)? @ -None Was patient admitted / discharged? @ -Discharged. Lab work demonstrates leukocytosis of 13.1 and is otherwise unr emarkable. Urinalysis negative for signs of blood or infection. CT scan of the abdomen and pelvis reveals no evidence of a ureteral calculus or other acute process. We then discussed further testing with an ultrasound and patient was agreeable. Transvaginal ultrasound obtained. The left ovary could not be visualized due to overlying bowel gas. However, she did have some nonspecific free fluid in the pelvis. While the ovary could not be visualized, a torsion would be very unlikely, especially given the duration of her symptoms and negative lactic acid. We discussed the possibility of an ovarian cyst that ruptured, causing the fluid. It is also possible this is musculoskeletal in nature. Her pain was initially difficult to control due to the patient being opioid tolerant. However, we were eventually able to get it to a reasonable level. Toradol, Robaxin, and Zofran prescribed for further symptomatic management. Otherwise advised follow-up with her PCP. Patient discharged home in stable condition. Case discussed with ED attending Dr. Mora. Return precautions reviewed in depth, the patient is instructed to return to the emergency department with any new, worsening, or concerning symptoms. Patient verbalized understanding. Undiagnosed new problem with uncertain prognosis? @ -None Drug Therapy requiring intensive monitoring for toxicity (Heparin, Nitro, Insulin, Cardizem)? @ -None Were any procedures done? @ -None Diagnosis/symptom? @ -Left-sided abdominal pain, left-sided back pain Acute, or Chronic, or Acute on Chronic? @ -Acute Uncomplicated (without systemic symptoms) or Complicated (systemic symptoms)? @ -Uncomplicated Side effects of treatment? @ -None Exacerbation, Progression, or Severe Exacerbation] @ -Not applicable Poses a threat to life or bodily function? @ -No - Lab Data Result diagrams: 09/05/24 17:46 09/05/24 20:15 Lab Results 09/05/24 09/05/24 09/05/24 Range/Units 17:46 17:46 18:12 WBC 13.1 H (3.8-10.6) k/uL RBC 5.28 (3.80-5.40) m/uL Hgb 14.0 (11.4-16.0) gm/dL Hct 44.1 (34.0-46.0) % MCV 83.5 (80.0-100.0) fL MCH 26.4 (25.0-35.0) pg MCHC 31.6 (31.0-37.0) g/dL RDW 13.6 (11.5-15.5) % Plt Count 298 (150-450) k/uL MPV 9.7 Neutrophils % 68 % Lymphocytes % 23 % Monocytes % 3 % Eosinophils % 3 % Basophils % 0 % Neutrophils # 8.9 H (1.3-7.7) k/uL Lymphocytes # 3.0 (1.0-4.8) k/uL Monocytes # 0.4 (0-1.0) k/uL Eosinophils # 0.4 (0-0.7) k/uL Basophils # 0.1 (0-0.2) k/uL Sodium (137-145) mmol/L Potassium (3.5-5.1) mmol/L Chloride (98-107) mmol/L Carbon Dioxide (22-30) mmol/L Anion Gap mmol/L BUN (7-17) mg/dL Creatinine (0.52-1.04) mg/dL Est GFR (CKD-EPI)AfAm (>60 ml/min/1.73 sqM) Est GFR (CKD-EPI)NonAf (>60 ml/min/1.73 sqM) Glucose (74-99) mg/dL Plasma Lactic Acid Anjel 0.9 (0.7-2.0) mmol/L Calcium (8.4-10.2) mg/dL Total Bilirubin (0.2-1.3) mg/dL AST (14-36) U/L ALT (4-34) U/L Alkaline Phosphatase (38-126) U/L Total Protein (6.3-8.2) g/dL Albumin (3.5-5.0) g/dL Amylase (30-110) U/L Lipase (23-300) U/L Urine Color Light Yellow Urine Appearance Clear (Clear) Urine pH 5.5 (5.0-8.0) Ur Specific [place] 1.029 (1.001-1.035) Urine Protein Trace H (Negative) Urine Glucose (UA) Negative (Negative) Urine Ketones 1+ H (Negative) Urine Blood Negative (Negative) Urine Nitrite Negative (Negative) Urine Bilirubin Negative (Negative) Urine Urobilinogen <2.0 (<2.0) mg/dL Ur Leukocyte Esterase Negative (Negative) 09/05/24 Range/Units 20:15 WBC (3.8-10.6) k/uL RBC (3.80-5.40) m/uL Hgb (11.4-16.0) gm/dL Hct (34.0-46.0) % MCV (80.0-100.0) fL MCH (25.0-35.0) pg MCHC (31.0-37.0) g/dL RDW (11.5-15.5) % Plt Count (150-450) k/uL MPV Neutrophils % % Lymphocytes % % Monocytes % % Eosinophils % % Basophils % % Neutrophils # (1.3-7.7) k/uL Lymphocytes # (1.0-4.8) k/uL Monocytes # (0-1.0) k/uL Eosinophils # (0-0.7) k/uL Basophils # (0-0.2) k/uL Sodium 136 L (137-145) mmol/L Potassium 4.0 (3.5-5.1) mmol/L Chloride 104 (98-107) mmol/L Carbon Dioxide 19 L (22-30) mmol/L Anion Gap 13 mmol/L BUN 20 H (7-17) mg/dL Creatinine 0.56 (0.52-1.04) mg/dL Est GFR (CKD-EPI)AfAm >90 (>60 ml/min/1.73 sqM) Est GFR (CKD-EPI)NonAf >90 (>60 ml/min/1.73 sqM) Glucose 95 (74-99) mg/dL Plasma Lactic Acid Anjel (0.7-2.0) mmol/L Calcium 9.1 (8.4-10.2) mg/dL Total Bilirubin 0.5 (0.2-1.3) mg/dL AST 21 (14-36) U/L ALT 37 H (4-34) U/L Alkaline Phosphatase 68 (38-126) U/L Total Protein 7.0 (6.3-8.2) g/dL Albumin 4.3 (3.5-5.0) g/dL Amylase 55 (30-110) U/L Lipase 127 (23-300) U/L Urine Color Urine Appearance (Clear) Urine pH (5.0-8.0) Ur Specific [place] (1.001-1.035) Urine Protein (Negative) Urine Glucose (UA) (Negative) Urine Ketones (Negative) Urine Blood (Negative) Urine Nitrite (Negative) Urine Bilirubin (Negative) Urine Urobilinogen (<2.0) mg/dL Ur Leukocyte Esterase (Negative) - Radiology Data Radiology results: report reviewed, image reviewed Disposition Clinical Impression: Left sided abdominal pain, Left-sided back pain Disposition: HOME SELF-CARE Instructions (If sedation given, give patient instructions): Abdominal Pain (ED), Back Pain (ED) Additional Instructions: Return to the emergency department with any new, worsening, or concerning symptoms. Take the Toradol with Tylenol as needed for pain relief. If you choose to take the Toradol, do not take any other anti-inflammatories such as ibuprofen, take one or the other. Take the Robaxin as 1 to 2 tablets up to 3-4 times daily. Take the Zofran up to every 8 hours as needed for nausea and vomiting. Follow up with your primary care provider in 1-2 days. Prescriptions: methocarbamoL [Robaxin-750] 1,500 mg PO TID PRN #30 tab PRN Reason: Pain Ketorolac [Toradol] 10 mg PO Q6HR PRN #15 tab PRN Reason: Pain Ondansetron Odt [Zofran Odt] 4 mg PO Q8HR PRN #20 tab PRN Reason: Nausea And Vomiting Is patient prescribed a controlled substance at d/c from ED?: No Referrals: Fernando Oliver MD [Primary Care Provider] - 1-2 days Time of Disposition: 00:09
[2024-09-05 18:19] LABS: Appearance,Urine Clear (Clear); Bilirubin,Urine Negative (Negative); Blood,Urine Negative (Negative); Color,Urine Light Yellow; Glucose,Urine (UA) Negative (Negative); Ketones,Urine 1+ (Negative); Leukocyte Esterase,Urine Negative (Negative); Nitrite,Urine Negative (Negative); PH, Urine 5.5 (5.0-8.0); Protein,Urine Trace (Negative); Specific Gravity,Urine 1.029 (1.001-1.035); Urobilinogen,Urine <2.0 mg/dL (<2.0)
--- NOTE | 2024-09-05 19:57 | CT ---
EXAMINATION TYPE: CT abdomen pelvis wo con DATE OF EXAM: 09/05/2024 HISTORY: lt flank pain/micro hematuria CT DLP: 743.1 mGycm. Automated Exposure Control for Dose Reduction was Utilized. TECHNIQUE: CT scan of the abdomen and pelvis is performed without oral or IV contrast. COMPARISON: CT abdomen and pelvis 2019 FINDINGS: Within the limitations of a non-contrast study, the following observations are made. LUNG BASES: No significant abnormality is appreciated. LIVER/GB: No significant abnormality is appreciated. PANCREAS: No significant abnormality is seen. SPLEEN: No significant abnormality is seen. ADRENALS: No significant abnormality is seen. KIDNEYS: Slightly larger 3 mm nonobstructing calculus right kidney axial image 56. Suspect additional 1 to 2 mm punctate nonobstructing calculus at this level. No left-sided nephrolithiasis. No hydronep hrosis seen bilaterally. BOWEL: No significant abnormality is seen. GENITAL ORGANS: Uterus is surgically absent or atrophic in appearance. Small amount of free fluid in pelvis axial image 114 is felt present. Nonspecific finding. LYMPH NODES: No greater than 1cm abdominal or pelvic lymph nodes are appreciated. OSSEOUS STRUCTURES: Moderate disc space narrowing at L4-L5 and L5-S1 levels is redemonstrated. OTHER: Small fat-containing umbilical hernia is redemonstrated. IMPRESSION: No hydronephrosis or obstructing ureteral calculi seen bilaterally. There are 2 tiny nono bstructing right renal calculi on current study. [facility], , 09/05/2024 7:55 PM
[2024-09-05] MEDS: SODIUM CHLORIDE 0.9% 1,000 ML IV STA (20:10)
[2024-09-05] MEDS: ONDANSETRON 4 MG/2 ML VIAL IVP STA (20:11)
[2024-09-05] MEDS: KETOROLAC 15 MG/ML 1 ML VIAL IVP STA ×2 (20:12→22:23)
[2024-09-05] MEDS: MORPHINE SULFATE 4 MG/ML SYRINGE IVP STA (20:13)
[2024-09-05 20:33] LABS: African American GFR (CKD) >90 (>60 ml/min/1.73 sqM); Anion Gap 13 mmol/L; Blood Urea Nitrogen 20 mg/dL (7-17); Calcium 9.1 mg/dL (8.4-10.2); Carbon Dioxide 19 mmol/L (22-30); Chloride 104 mmol/L (98-107); Glucose 95 mg/dL (74-99); Non-African American GFR(CKD) >90 (>60 ml/min/1.73 sqM); Sodium 136 mmol/L (137-145)
[2024-09-05 20:34] LABS: ALT 37 U/L (4-34); AST 21 U/L (14-36); Albumin 4.3 g/dL (3.5-5.0); Alkaline Phosphatase 68 U/L (38-126); Amylase 55 U/L (30-110); Lipase 127 U/L (23-300); Total Bilirubin 0.5 mg/dL (0.2-1.3)
--- NOTE | 2024-09-05 21:42 | US ---
EXAMINATION TYPE: US transvaginal DATE OF EXAM: 09/05/2024 COMPARISON: CT today CLINICAL INDICATION: Female, 43 years old with history of Left sided pelvic pain; patient states left sided pain since yesterday that radiates through back. hx of hysterectomy. has both ovaries TECHNIQUE: Transvaginal (TV). Transvaginal sonographic images were medically necessary to better assess the following anatomy: Ovar ies Doppler imaging: Color Doppler Images were obtained. Spectral doppler images were obtained. FINDINGS: Date of LMP: hysterectomy EXAM MEASUREMENTS: Uterus: Surgically absent Endometrial Stripe: Surgically absent Right Ovary: 3.8 x 2.6 x 2.8 cm Left Ovary: Not visualized due to bowel gas. 1. Uterus: Surgically absent 2. Endometrium: Surgically absent 3. Right Ovary: Peripheral follicles are present 4. Left Ovary: Obscured by overlying bowel gas Spectral, color and waveform doppler imaging shows good arterial and venous flow within the right o vary; 5. Bilateral Adnexa: Overlying bowel 6. Posterior cul-de-sac: free fluid seen IMPRESSION: Confirmation of small amount of free fluid in the pelvis of uncertain etiology. No suspic ious adnexal masses. Left ovary not identified with certainty. [facility], , 09/05/2024 9:40 PM
[2024-09-05] MEDS: HYDROmorphone 1 MG/ML 1 ML SYRINGE IVP STA ×2 (22:23→23:41)
[2024-09-06] MEDS: ACET/COD 300 MG/30 MG STARTER PACK 6 TAB BTL PO STA (00:32)
[2024-09-06] MEDS: ONDANSETRON 4 MG ODT STARTER PACK 2 TAB BTL PO STA (00:32)
[2024-09-06] MEDS: oxyCODONE-APAP 10-325MG 1 EACH TAB PO STA (00:33)
[2024-09-06] MEDS: HYDROmorphone 1 MG/ML 1 ML SYRINGE IVP STA (00:36)
[2024-09-06 00:46] VITALS: BP 150/89; PULSE 64; RESP 17
== END 2024-09-06 00:46 | disposition home or self-care (01) ==
LOC: EC 16:44
DX: R10.32 Left lower quadrant pain (principal); M54.9 Dorsalgia, unspecified; F17.290 Nicotine dependence, other tobacco product, uncomplicated; Z91.048 Other nonmedicinal substance allergy status; Z88.8 Allergy status to other drugs, medicaments and biological substances
CPT/HCPCS: 36415; 80053; 82150; 83605; 83690; 85025; 81003; 93976; 76830; 74176; 99284; 96374; 96375; 96376 ×2; 96361; J2270; J3360; J2405; J1171; J1885

== ENCOUNTER 2024-10-17 19:07 | Emergency (ER) | payer OTHER ==
[2024-10-17 19:47] VITALS: RESP 18; TEMP 97.3
--- NOTE | 2024-10-17 20:25 | ED ---
General Adult HPI - General Chief complaint: Urogenital Stated complaint: urogenital Time Seen by Provider: 10/17/24 19:48 Source: patient, RN notes reviewed Mode of arrival: ambulatory Limitations: no limitations - History of Present Illness Initial comments: 43-year-old female presents to the emergency department for evaluation of dysuria, hematuria. Patient notes that symptoms have been going on since . She states that she had a telehealth appointment with her PCP on Tuesday because of the symptoms. She started on amoxicillin. She notes that the symptoms continue and now she is having some blood in the urine. She notes pain in the area of her urethra that is constant but worse with urination. She notes passing small amounts of urine frequently. She denies any known fever, chills. Denies any abdominal pain, flank pain. - Related Data Home Medications Medication Instructions Recorded Confirmed Albuterol Inhaler [Ventolin Hfa 2 puff INHALATION RT-QID PRN 04/16/22 03/05/24 Inhaler] Buprenorphine HCl/Naloxone HCl 1 film SL TID 04/16/22 03/05/24 [Suboxone 8 mg-2 mg Sl Film] Ergocalciferol [Vitamin D2 (1250 1,250 mcg PO Q30D 04/16/22 03/05/24 Mcg = 47067 Iu)] Levothyroxine Sodium [Synthroid] 25 mcg PO DAILY 04/16/22 03/05/24 cloNIDine HCL [Catapres] 0.1 mg PO TID 04/16/22 03/05/24 Lansoprazole [Prevacid] 30 mg PO BID 08/09/22 03/05/24 Cetirizine HCl [Zyrtec] 10 mg PO DAILY 03/05/24 03/05/24 Fluticasone/Umeclidin/Vilanter 1 puff INHALATION RT-DAILY 03/05/24 03/05/24 [Trelegy Ellipta 200-62.5-25] Ibuprofen [Motrin] 800 mg PO BID 03/05/24 03/05/24 clonazePAM [KlonoPIN] 0.5 mg PO TID 03/05/24 03/05/24 Previous Rx's Medication Instructions Recorded Meclizine [Antivert] 25 mg PO TID PRN #15 tab 03/24/23 Ondansetron Odt [Zofran ODT] 4 mg PO Q8HR PRN #10 tab 12/26/23 Ondansetron Odt [Zofran Odt] 4 mg PO Q8HR PRN #10 tab 07/25/24 Ketorolac [Toradol] 10 mg PO Q6HR PRN #15 tab 09/06/24 Ondansetron Odt [Zofran Odt] 4 mg PO Q8HR PRN #20 tab 09/06/24 methocarbamoL [Robaxin-750] 1,500 mg PO TID PRN #30 tab 09/06/24 Cephalexin [Keflex] 500 mg PO Q6HR #40 cap 10/17/24 Allergies Allergy/AdvReac Type Severity Reaction Status Date / Time adhesive tape Allergy Itching Verified 10/17/24 19:47 amitriptyline Allergy Rash/Hives/ Verified 10/17/24 19:47 Confusion sumatriptan [From Imitrex] Allergy Anaphylaxis Verified 10/17/24 19:47 Review of Systems ROS Statement: Those systems with pertinent positive or pertinent negative responses have been documented in the HPI. ROS Other: All systems not noted in ROS Statement are negative. Past Medical History Past Medical History: Hypertension Additional Past Medical History / Comment(s): anemia 4 blood transfusions bood disorder hep c in remission History of Any Multi-Drug Resistant Organisms: None Reported Past Surgical History: Section, Hysterectomy, Tonsillectomy Past Anesthesia/Blood Transfusion Reactions: No Reported Reaction Past Psychological History: Anxiety, Bipolar Smoking Status: Vaper Past Alcohol Use History: Rare Past Drug Use History: Marijuana General Exam Limitations: no limitations General appearance: alert, in no apparent distress Head exam: Present: atraumatic, normocephalic, normal inspection Eye exam: Present: normal appearance, PERRL, EOMI. Absent: scleral icterus, conjunctival injection, periorbital swelling ENT exam: Present: normal exam, mucous membranes moist Neck exam: Present: normal inspection. Absent: tenderness, meningismus, lymphadenopathy Respiratory exam: Present: normal lung sounds bilaterally. Absent: respiratory distress, wheezes, rales, rhonchi, stridor Cardiovascular Exam: Present: regular rate, normal rhythm, normal heart sounds. Absent: systolic murmur, diastolic murmur, rubs, gallop, clicks GI/Abdominal exam: Present: soft, normal bowel sounds. Absent: distended, tenderness, guarding, rebound, rigid Extremities exam: Present: normal inspection, full ROM, normal capillary refill. Absent: tenderness, pedal edema, joint swelling, calf tenderness Neurological exam: Present: alert, oriented X3 Psychiatric exam: Present: normal affect, normal mood Skin exam: Present: warm, dry, intact, normal color. Absent: rash Course Vital Signs 10/17/24 10/17/24 19:44 23:16 Temperature 97.3 F L Pulse Rate 71 73 Respiratory 18 18 Rate Blood Pressure 143/99 159/95 O2 Sat by Pulse 97 96 Oximetry Medical Decision Making - Medical Decision Making Was pt. sent in by a medical professional or institution (, [facility], ASSOCIATE MUSIC PROFESSOR, urgent care, hospital, or custodial...) When possible be specific @ -No Did you speak to anyone other than the patient for history (EMS, parent, family, police, friend...)? What history was obtained from this source @ -No Did you review nursing and triage notes (agree or disagree)? Why? @ -I reviewed and agree with nursing and triage notes Were old charts reviewed (outside hosp., previous admission, EMS record, old EKG, old radiological studies, urgent care reports/EKG's, custodial records)? Report findings @ -No old charts were reviewed Differential Diagnosis (chest pain, altered mental status, abdominal pain women, abdominal pain men, vaginal bleeding, weakness, fever, dyspnea, syncope, headache, dizziness, GI bleed, back pain, seizure, CVA, palpatations, mental health, musculoskeletal)? @ -Urinary tract infection, cystitis, pyelonephritis, STD, this list is not all inclusive EKG interpreted by me (3pts min.). @ -None X-rays interpreted by me (1pt min.). @ -None done CT interpreted by me (1pt min.). @ -None done U/S interpreted by me (1pt. min.). @ -Ultrasound of the renals and bladder revealed no evidence of acute process What testing was considered but not performed or refused? (CT, X-rays, U/S, labs)? Why? @ -None What meds were considered but not given or refused? Why? @ -None Did you discuss the management of the patient with other professionals (professionals i.e. , PA, ASSOCIATE MUSIC PROFESSOR, lab, RT, psych nurse, social worker delinquency prevention, ambulatory service representative, teacher, real estate loan officer, registered nurse hh case manager)? Give summary @ -No Was smoking cessation discussed for >3mins.? @ -No Was critical care preformed (if so, how long)? @ -No Were there social determinants of health that impacted care today? How? (Homelessness, low income, unemployed, alcoholism, drug addiction, transportation, low edu. Level, literacy, decrease access to med. care, long term, rehab)? @ -No Was there de-escalation of care discussed even if they declined (Discuss DNR or withdrawal of care, Hospice)? DNR status @ -No What co-morbidities impacted this encounter? (DM, HTN, Smoking, COPD, CAD, Cancer, CVA, ARF, Chemo, Hep., AIDS, mental health diagnosis, sleep apnea, mo rbid obesity)? @ -None Was patient admitted / discharged? Hospital course, mention meds given and r oute, prescriptions, significant lab abnormalities, going to OR and other pertinent info. @ -Discharge. Patient presented the emergency department for evaluation of dysuria, hematuria. Symptoms x 6 days. No abdominal pain. Laboratory studies obtained WBC 6.5, hemoglobin 10.8; CMP on actionable at this time. UA shows large blood, large leukocyte esterase, greater than 182 RBCs, greater than 182 WBCs. An ultrasound of the renals and bladder obtained revealing no evidence for obstructive uropathy. The patient is not having any abdominal or flank pain. This is likely hemorrhagic cystitis. She was administered a dose of Rocephin in the emergency department and she will be started on antibiotics as an outpatient. She is understanding agreeable with discharge plan. Patient stable at time of discharge. Case discussed with Dr. Teryr. Undiagnosed new problem with uncertain prognosis? @ -No Drug Therapy requiring intensive monitoring for toxicity (Heparin, Nitro, Insulin, Cardizem)? @ -No Were any procedures done? @ -No Diagnosis/symptom? @ -Hemorrhagic cystitis Acute, or Chronic, or Acute on Chronic? @ -Acute Uncomplicated (without systemic symptoms) or Complicated (systemic symptoms)? @ -Uncomplicated Side effects of treatment? @ -No Exacerbation, Progression, or Severe Exacerbation? @ -No Poses a threat to life or bodily function? How? (Chest pain, [place], [place], pneumonia, PE, COPD, DKA, ARF, appy, cholecystitis, CVA, Diverticulitis, Homicidal, Suicidal, threat to staff... and all critical care pts) @ -No - Lab Data Result diagrams: 10/17/24 20:40 10/17/24 20:40 Lab Results 10/17/24 10/17/24 10/17/24 Range/Units 20:40 20:40 20:40 WBC 6.51 (4.50-10.00) 10*3/uL RBC 3.94 L (4.10-5.20) 10*6/uL Hgb 10.8 L (12.0-15.0) g/dL Hct 32.7 L (37.2-46.3) % MCV 83.0 (80.0-97.0) fL MCH 27.4 (27.0-32.0) pg MCHC 33.0 (32.0-37.0) g/dL Plt Count 239 (140-440) 10*3/uL MPV 11.4 (9.5-12.2) fL Immature Gran % (Auto) 0.2 % Neutrophils % 49.9 % Lymphocytes % 36.1 % Monocytes % 5.5 % Eosinophils % 7.5 % Basophils % 0.8 % Immature Gran # 0.01 (0.00-0.04) 10*3/uL Neutrophils # 3.25 (1.80-7.70) 10*3/uL Lymphocytes # 2.35 (0.90-5.00) 10*3/uL Monocytes # 0.36 (0.20-1.00) 10*3/uL Eosinophils # 0.49 H (0.04-0.35) 10*3/uL Basophils # 0.05 (0.00-0.10) 10*3/uL Sodium 135 L (137-145) mmol/L Potassium 3.9 (3.5-5.1) mmol/L Chloride 107 (98-107) mmol/L Carbon Dioxide 21 L (22-30) mmol/L Anion Gap 7 mmol/L BUN 27 H (7-17) mg/dL Creatinine 0.95 (0.52-1.04) mg/dL Est GFR (CKD-EPI)AfAm 84 (>60 ml/min/1.73 sqM) Est GFR (CKD-EPI)NonAf 73 (>60 ml/min/1.73 sqM) Glucose 113 H (74-99) mg/dL Calcium 8.8 (8.4-10.2) mg/dL Total Bilirubin 0.3 (0.2-1.3) mg/dL AST 18 (14-36) U/L ALT 12 (4-34) U/L Alkaline Phosphatase 55 (38-126) U/L Total Protein 6.2 L (6.3-8.2) g/dL Albumin 3.6 (3.5-5.0) g/dL Urine Color Light Red Urine Appearance Turbid H (Clear) Urine pH 6.5 (5.0-8.0) Ur Specific [place] 1.023 (1.001-1.035) Urine Protein 2+ H (Negative) Urine Glucose (UA) Negative (Negative) Urine Ketones Negative (Negative) Urine Blood Large H (Negative) Urine Nitrite Negative (Negative) Urine Bilirubin Negative (Negative) Urine Urobilinogen <2.0 (<2.0) mg/dL Ur Leukocyte Esterase Large H (Negative) Urine RBC >182 H (0-5) /hpf Urine WBC >182 H (0-5) /hpf Urine Bacteria Many H (None) /hpf Urine Mucus Rare H (None) /hpf Disposition Clinical Impression: Urinary tract infection Disposition: HOME SELF-CARE Condition: Stable Instructions (If sedation given, give patient instructions): Urinary Tract Infection in Women (ED) Additional Instructions: Please follow-up with your primary care provider. Return to the emergency department for new or worsening symptoms Prescriptions: Cephalexin [Keflex] 500 mg PO Q6HR #40 cap Is patient prescribed a controlled substance at d/c from ED?: No Referrals: Fernando Oliver MD [Primary Care Provider] - 1-2 days
[2024-10-17] MEDS: SODIUM CHLORIDE 0.9% 1,000 ML IV ONE (20:42)
[2024-10-17] MEDS: KETOROLAC 15 MG/ML 1 ML VIAL IVP STA (20:43)
[2024-10-17 20:51] LABS: Basophils # (A) 0.05 10*3/uL (0.00-0.10); Basophils % (A) 0.8 %; Eosinophils # (A) 0.49 10*3/uL (0.04-0.35); Eosinophils % (A) 7.5 %; HCT 32.7 % (37.2-46.3); HGB 10.8 g/dL (12.0-15.0); Lymphocytes # (A) 2.35 10*3/uL (0.90-5.00); Lymphocytes % (A) 36.1 %; MCH 27.4 pg (27.0-32.0); Mean Platelet Volume 11.4 fL (9.5-12.2); Monocytes # (A) 0.36 10*3/uL (0.20-1.00); Monocytes % (A) 5.5 %; Neutrophils # (A) 3.25 10*3/uL (1.80-7.70); Neutrophils % (A) 49.9 %; Platelet Count 239 10*3/uL (140-440); RBC 3.94 10*6/uL (4.10-5.20); WBC 6.51 10*3/uL (4.50-10.00)
[2024-10-17 21:05] LABS: Appearance,Urine Turbid (Clear); Bacteria,Urine Many /hpf; Bilirubin,Urine Negative (Negative); Blood,Urine Large (Negative); Color,Urine Light Red; Glucose,Urine (UA) Negative (Negative); Ketones,Urine Negative (Negative); Leukocyte Esterase,Urine Large (Negative); Mucus,Urine Rare /hpf; Nitrite,Urine Negative (Negative); PH, Urine 6.5 (5.0-8.0); Protein,Urine 2+ (Negative); RBC,Urine >182 /hpf (0-5); Specific Gravity,Urine 1.023 (1.001-1.035); Urobilinogen,Urine <2.0 mg/dL (<2.0); WBC,Urine >182 /hpf (0-5)
[2024-10-17 21:17] LABS: ALT 12 U/L (4-34); AST 18 U/L (14-36); African American GFR (CKD) 84 (>60 ml/min/1.73 sqM); Albumin 3.6 g/dL (3.5-5.0); Alkaline Phosphatase 55 U/L (38-126); Anion Gap 7 mmol/L; Blood Urea Nitrogen 27 mg/dL (7-17); Calcium 8.8 mg/dL (8.4-10.2); Carbon Dioxide 21 mmol/L (22-30); Chloride 107 mmol/L (98-107); Glucose 113 mg/dL (74-99); Non-African American GFR(CKD) 73 (>60 ml/min/1.73 sqM); Potassium 3.9 mmol/L (3.5-5.1); Sodium 135 mmol/L (137-145); Total Bilirubin 0.3 mg/dL (0.2-1.3); Total Protein 6.2 g/dL (6.3-8.2)
[2024-10-17] MEDS: cefTRIAXone IN SWFI 1,000 MG/10 ML SYRINGE IVP STA (21:45)
[2024-10-17] MEDS: MORPHINE SULFATE 4 MG/ML SYRINGE IVP STA (22:18)
[2024-10-17] MEDS: PHENAZOPYRIDINE 200 MG TAB PO STA (22:18)
--- NOTE | 2024-10-17 22:26 | US ---
EXAMINATION TYPE: US renals and bladder DATE OF EXAM: 10/17/2024 COMPARISON: CT 09/05/2024 CLINICAL INDICATION: Female, 43 years old with history of pain, dysuria; patient states pain near ure thra TECHNIQUE: Grayscale imaging of the bilateral kidneys and urinary bladder: FINDINGS: EXAM MEASUREMENTS: Right Kidney: 11.4 x 4.7 x 5.5 cm Left Kidney: 11.0 x 5.4 x 5.4 cm Right Kidney: possible 4mm echogenic foci seen within the inferior pole as seen on prior CT Left Kidney: wnl Bladder: patient just used bathroom, wnl as best seen Bilateral Jets seen: not seen There is no evidence for hydronephrosis at this point in time. No nephrolithiasis is seen. No link s are identified. The urinary bladder is anechoic. IMPRESSION: 1. No evidence for obstructive uropathy. 2. Right renal nonobstructing calculus versus prominent renal sinus fat. [facility], , 10/17/2024 10:24 PM
[2024-10-17] MEDS: LORazepam 2 MG/ML INJ IV STA (22:58)
[2024-10-17 23:17] VITALS: BP 159/95; PULSE 73
== END 2024-10-17 23:28 | disposition home or self-care (01) ==
LOC: EC 19:07
DX: N39.0 Urinary tract infection, site not specified (principal); F17.290 Nicotine dependence, other tobacco product, uncomplicated; Z88.8 Allergy status to other drugs, medicaments and biological substances
CPT/HCPCS: 36415; 80053; 85025; 81001; 87086; 87077; 87186; 76770; 99284; 96374; 96375; 96361; J2060; J2270; J0696; J1885

== ENCOUNTER 2024-12-26 03:45 | Emergency (ER) | payer OTHER ==
--- NOTE | 2024-12-26 04:06 | ED ---
General Adult HPI - General Chief complaint: Nausea/Vomiting/Diarrhea Stated complaint: vomitting Time Seen by Provider: 12/26/24 03:57 Source: patient Mode of arrival: ambulatory Limitations: no limitations - History of Present Illness Initial comments: Patient is a 44-year female presenting today for nausea and vomiting. States she has had heartburn like pain every evening for the last 3 nights. She subsequently has multiple episodes of nonbloody nonbilious emesis. Symptoms started to improve in the morning and she is able to tolerate oral intake throughout the day. Last night patient had pizza for dinner around 8 PM and went to bed around 10 PM. Woke up with epigastric abdominal pain and burning chest pain as well as nausea and had multiple episodes nonbloody nonbilious emesis. Presents today due to persistent vomiting. Does have a history of hemorrhoids and has noted blood streaks in her stool denies melena. Has known history heartburn. States she is taking her heartburn medications without relief of her symptoms. Denies additional chest pain, states she feels short of breath when she has asthma exacerbations but otherwise denies shortness of breath. Endorses associated lightheadedness. Denies fevers. - Related Data Home Medications Medication Instructions Recorded Confirmed Albuterol Inhaler [Ventolin Hfa 2 puff INHALATION RT-QID PRN 04/16/22 03/05/24 Inhaler] Buprenorphine HCl/Naloxone HCl 1 film SL TID 04/16/22 03/05/24 [Suboxone 8 mg-2 mg Sl Film] Ergocalciferol [Vitamin D2 (1250 1,250 mcg PO Q30D 04/16/22 03/05/24 Mcg = 31551 Iu)] Levothyroxine Sodium [Synthroid] 25 mcg PO DAILY 04/16/22 03/05/24 cloNIDine HCL [Catapres] 0.1 mg PO TID 04/16/22 03/05/24 Lansoprazole [Prevacid] 30 mg PO BID 08/09/22 03/05/24 Cetirizine HCl [Zyrtec] 10 mg PO DAILY 03/05/24 03/05/24 Fluticasone/Umeclidin/Vilanter 1 puff INHALATION RT-DAILY 03/05/24 03/05/24 [Trelegy Ellipta 200-62.5-25] Ibuprofen [Motrin] 800 mg PO BID 03/05/24 03/05/24 clonazePAM [KlonoPIN] 0.5 mg PO TID 03/05/24 03/05/24 Previous Rx's Medication Instructions Recorded Meclizine [Antivert] 25 mg PO TID PRN #15 tab 03/24/23 Ondansetron Odt [Zofran ODT] 4 mg PO Q8HR PRN #10 tab 12/26/23 Ondansetron Odt [Zofran Odt] 4 mg PO Q8HR PRN #10 tab 07/25/24 Ketorolac [Toradol] 10 mg PO Q6HR PRN #15 tab 09/06/24 Ondansetron Odt [Zofran Odt] 4 mg PO Q8HR PRN #20 tab 09/06/24 methocarbamoL [Robaxin-750] 1,500 mg PO TID PRN #30 tab 09/06/24 Cephalexin [Keflex] 500 mg PO Q6HR #40 cap 10/17/24 Allergies Allergy/AdvReac Type Severity Reaction Status Date / Time adhesive tape Allergy Itching Verified 12/26/24 03:53 amitriptyline Allergy Rash/Hives/ Verified 12/26/24 03:53 Confusion sumatriptan [From Imitrex] Allergy Anaphylaxis Verified 12/26/24 03:53 Review of Systems ROS Statement: Those systems with pertinent positive or pertinent negative responses have been documented in the HPI. ROS Other: All systems not noted in ROS Statement are negative. Past Medical History Past Medical History: Hypertension Additional Past Medical History / Comment(s): anemia 4 blood transfusions bood disorder hep c in remission History of Any Multi-Drug Resistant Organisms: None Reported Past Surgical History: Section, Hysterectomy, Tonsillectomy Past Anesthesia/Blood Transfusion Reactions: No Reported Reaction Past Psychological History: Anxiety, Bipolar Smoking Status: Vaper Past Alcohol Use History: Rare Past Drug Use History: Marijuana General Exam Limitations: no limitations Course Vital Signs 12/26/24 12/26/24 12/26/24 03:47 04:17 06:08 Temperature 97.5 F L 98.1 F Pulse Rate 80 74 75 Respiratory 20 18 18 Rate Blood Pressure 162/117 137/94 134/83 O2 Sat by Pulse 96 95 95 Oximetry EKG Findings - EKG Comments: EKG Findings:: Since rhythm, rate 67 bpm, intervals within except limits, normal axis, no significant ST elevations or depressions, no arrhythmia Medical Decision Making - Medical Decision Making Was pt. sent in by a medical professional or institution ([facility], [employer], urgent care, hospital, or jail...) When possible be specific @ -[No] Did you speak to anyone other than the patient for history (EMS, parent, family, police, friend...)? What history was obtained from this source @ -[No] Did you review nursing and triage notes (agree or disagree)? Why? @ -[I reviewed and agree with nursing and triage notes] Were old charts reviewed (outside hosp., previous admission, EMS record, old EKG, old radiological studies, urgent care reports/EKG's, jail records)? Report findings @ -[Medical records reviewed] Differential Diagnosis (chest pain, altered mental status, abdominal pain women, abdominal pain men, vaginal bleeding, weakness, fever, dyspnea, syncope, headache, dizziness, GI bleed, back pain, seizure, CVA, palpatations, mental health, musculoskeletal)? @ -Differential Abdominal Pain Women: Appendicitis, Cholecystitis, diverticulosis, ischemic bowel, pancreatitis, hepatitis, UTI, gastroenteritis, AAA, incarcerated hernia, bowel obstruction, constipation, inflammatory bowel, hepatitis, peptic ulcer disease, splenic infarction, perforated viscus, vulvitis, ovarian torsion, PID, kidney stone, p lacenta abruption, this is not meant to be an all-inclusive list Differential Chest Pain: Stable Angina, Unstable Angina, STEMI, NSTEMI Aortic Dissection, pericarditis, pleurisy, chostochondirits, Pneumothorax, Musculoskeletal, Esophageal Spasm GERD, Cholecystitis, Pancreatitis, Zoster, this is not meant to be an all- inclusive list. EKG interpreted by me (3pts min.). @ -[As above] X-rays interpreted by me (1pt min.). @Personally viewed chest x-rays no evidence of cardiomegaly or consolidations CT interpreted by me (1pt min.). @ -[None done] U/S interpreted by me (1pt. min.). @ -[None done] What testing was considered but not performed or refused? (CT, X-rays, U/S, labs)? Why? @CT abdomen pelvis was considered however patient denied abdominal pain at this time and had a benign abdominal exam, symptoms are consistent with gastritis versus peptic ulcer disease, labs reassuring What meds were considered but not given or refused? Why? @ -[None] Did you discuss the management of the patient with other professionals (professionals i.e. , PA, [employer], lab, RT, psych nurse, social service liaison, counseling case manager, teacher, fundraising officer, therapeutic case manager)? Give summary @ -[No] Was smoking cessation discussed for >3mins.? @ -[No] Was critical care preformed (if so, how long)? @ -[No] Were there social determinants of health that impacted care today? How? (Homelessness, low income, unemployed, alcoholism, drug addiction, transportation, low edu. Level, literacy, decrease access to med. care, nursing home, rehab)? @ -[No] Was there de-escalation of care discussed even if they declined (Discuss DNR or withdrawal of care, Hospice)? @ -[No] What co-morbidities impacted this encounter? (DM, HTN, Smoking, COPD, CAD, Cancer, CVA, ARF, Chemo, Hep., AIDS, mental health diagnosis, sleep apnea, morbid obesity)? @ -[None] Was patient admitted / discharged? Hospital course, mention meds given and route, prescriptions, significant lab abnormalities, going to OR and other pertinent info. @ -[hospital course] pleasant 44-year female presenting today for burning epigastric and chest pain, nausea and vomiting x 3 nights. On my assessment patient is well-appearing in no acute distress. Sleeping comfortably. Vital s igns on arrival show hypertension however this spontaneously improved by the time patient had gone to her room. Abdominal exam is benign. Undiagnosed new problem with uncertain prognosis? @ -[No] Drug Therapy requiring intensive monitoring for toxicity (Heparin, Nitro, Insulin, Cardizem)? @ -[No] Were any procedures done? @ -[No] Diagnosis/symptom? @ -[default] Acute, or Chronic, or Acute on Chronic? @ -[default] Uncomplicated (without systemic symptoms) or Complicated (systemic symptoms)? @ -[default] Side effects of treatment? @ -[No] Exacerbation, Progression, or Severe Exacerbation? @ -[No] Poses a threat to life or bodily function? How? (Chest pain, [place], [place], pneumonia, PE, COPD, DKA, ARF, appy, cholecystitis, CVA, Diverticulitis, Homicidal, Suicidal, threat to staff... and all critical care pts) @ -[No] - Lab Data Result diagrams: 12/26/24 04:15 12/26/24 04:15 Lab Results 12/26/24 12/26/24 12/26/24 Range/Units 04:15 04:15 04:15 WBC 5.56 (4.50-10.00) 10*3/uL RBC 4.49 (4.10-5.20) 10*6/uL Hgb 12.1 (12.0-15.0) g/dL Hct 37.3 (37.2-46.3) % MCV 83.1 (80.0-97.0) fL MCH 26.9 L (27.0-32.0) pg MCHC 32.4 (32.0-37.0) g/dL Plt Count 249 (140-440) 10*3/uL MPV 11.1 (9.5-12.2) fL Immature Gran % (Auto) 0.4 % Neutrophils % 53.1 % Lymphocytes % 35.1 % Monocytes % 4.5 % Eosinophils % 6.5 % Basophils % 0.4 % Immature Gran # 0.02 (0.00-0.04) 10*3/uL Neutrophils # 2.96 (1.80-7.70) 10*3/uL Lymphocytes # 1.95 (0.90-5.00) 10*3/uL Monocytes # 0.25 (0.20-1.00) 10*3/uL Eosinophils # 0.36 H (0.04-0.35) 10*3/uL Basophils # 0.02 (0.00-0.10) 10*3/uL Sodium 140 (137-145) mmol/L Potassium 3.8 (3.5-5.1) mmol/L Chloride 109 H (98-107) mmol/L Carbon Dioxide 21 L (22-30) mmol/L Anion Gap 10 mmol/L BUN 25 H (7-17) mg/dL Creatinine 0.63 (0.52-1.04) mg/dL Est GFR (CKD-EPI)AfAm >90 (>60 ml/min/1.73 sqM) Est GFR (CKD-EPI)NonAf >90 (>60 ml/min/1.73 sqM) Glucose 111 H (74-99) mg/dL Calcium 9.5 (8.4-10.2) mg/dL Total Bilirubin 0.2 (0.2-1.3) mg/dL AST 22 (14-36) U/L ALT 16 (4-34) U/L Alkaline Phosphatase 60 (38-126) U/L Troponin I (0.000-0.034) ng/mL Total Protein 6.5 (6.3-8.2) g/dL Albumin 3.9 (3.5-5.0) g/dL Lipase 168 (23-300) U/L Urine Color Light Yellow Urine Appearance Clear (Clear) Urine pH 6.0 (5.0-8.0) Ur Specific [place] 1.031 (1.001-1.035) Urine Protein Negative (Negative) Urine Glucose (UA) Negative (Negative) Urine Ketones Negative (Negative) Urine Blood Negative (Negative) Urine Nitrite Negative (Negative) Urine Bilirubin Negative (Negative) Urine Urobilinogen <2.0 (<2.0) mg/dL Ur Leukocyte Esterase Negative (Negative) Urine HCG, Qual (Not Detectd) 12/26/24 12/26/24 Range/Units 04:15 04:15 WBC (4.50-10.00) 10*3/uL RBC (4.10-5.20) 10*6/uL Hgb (12.0-15.0) g/dL Hct (37.2-46.3) % MCV (80.0-97.0) fL MCH (27.0-32.0) pg MCHC (32.0-37.0) g/dL Plt Count (140-440) 10*3/uL MPV (9.5-12.2) fL Immature Gran % (Auto) % Neutrophils % % Lymphocytes % % Monocytes % % Eosinophils % % Basophils % % Immature Gran # (0.00-0.04) 10*3/uL Neutrophils # (1.80-7.70) 10*3/uL Lymphocytes # (0.90-5.00) 10*3/uL Monocytes # (0.20-1.00) 10*3/uL Eosinophils # (0.04-0.35) 10*3/uL Basophils # (0.00-0.10) 10*3/uL Sodium (137-145) mmol/L Potassium (3.5-5.1) mmol/L Chloride (98-107) mmol/L Carbon Dioxide (22-30) mmol/L Anion Gap mmol/L BUN (7-17) mg/dL Creatinine (0.52-1.04) mg/dL Est GFR (CKD-EPI)AfAm (>60 ml/min/1.73 sqM) Est GFR (CKD-EPI)NonAf (>60 ml/min/1.73 sqM) Glucose (74-99) mg/dL Calcium (8.4-10.2) mg/dL Total Bilirubin (0.2-1.3) mg/dL AST (14-36) U/L ALT (4-34) U/L Alkaline Phosphatase (38-126) U/L Troponin I <0.012 (0.000-0.034) ng/mL Total Protein (6.3-8.2) g/dL Albumin (3.5-5.0) g/dL Lipase (23-300) U/L Urine Color Urine Appearance (Clear) Urine pH (5.0-8.0) Ur Specific [place] (1.001-1.035) Urine Protein (Negative) Urine Glucose (UA) (Negative) Urine Ketones (Negative) Urine Blood (Negative) Urine Nitrite (Negative) Urine Bilirubin (Negative) Urine Urobilinogen (<2.0) mg/dL Ur Leukocyte Esterase (Negative) Urine HCG, Qual Not Detected (Not Detectd) Disposition Clinical Impression: Gastritis Disposition: HOME SELF-CARE Condition: Good Instructions (If sedation given, give patient instructions): Acute Nausea and Vomiting (ED), Gastritis (ED) Additional Instructions: Every disease is a spectrum and a small chance still exists that a serious condition could develop, for this reason, please monitor yourself closely for new, changing or worsening symptoms, symptoms that do not begin to improve over the course of the next 48 hours, new or worsening chest pain, difficulty in breathing, fever, inability to tolerate/keep down fluids or your medications, inability to follow up with outpatient providers as instructed and should you experience these symptoms or should you have any further concerns for your wellbeing please return to the ED or call 911 immediately. Please avoid all spicy, tomato-based, or chocolate containing foods. Please avoid smoking, caffeinated beverages and alcoholic beverages. Please take 20 mg of Pepcid up to twice daily as needed for pain. Avoid NSAID use. PLEASE call your primary care physician as soon as possible to arrange / discuss plan for followup appointment. Appointment in the next 1-3 days is strongly encouraged if possible. PLEASE let us know here before you leave if there is anything further we can do to be of any assistance. Take care and feel Better! Is patient prescribed a controlled substance at d/c from ED?: No Referrals: Fernando Oliver MD [Primary Care Provider] - 1-2 days
[2024-12-26] MEDS: ONDANSETRON 4 MG/2 ML VIAL IVP STA (04:18)
[2024-12-26] MEDS: SODIUM CHLORIDE 0.9% 1,000 ML IV STA (04:22)
[2024-12-26] MEDS: METOCLOPRAMIDE 5 MG/ML 2 ML VIAL IVP STA (04:22)
[2024-12-26 04:27] LABS: Basophils # (A) 0.02 10*3/uL (0.00-0.10); Basophils % (A) 0.4 %; Eosinophils # (A) 0.36 10*3/uL (0.04-0.35); Eosinophils % (A) 6.5 %; HCT 37.3 % (37.2-46.3); HGB 12.1 g/dL (12.0-15.0); Lymphocytes # (A) 1.95 10*3/uL (0.90-5.00); Lymphocytes % (A) 35.1 %; MCH 26.9 pg (27.0-32.0); MCHC 32.4 g/dL (32.0-37.0); MCV 83.1 fL (80.0-97.0); Mean Platelet Volume 11.1 fL (9.5-12.2); Monocytes # (A) 0.25 10*3/uL (0.20-1.00); Monocytes % (A) 4.5 %; Neutrophils # (A) 2.96 10*3/uL (1.80-7.70); Neutrophils % (A) 53.1 %; Platelet Count 249 10*3/uL (140-440); RBC 4.49 10*6/uL (4.10-5.20); RDW 12.8 % (11.5-14.5); WBC 5.56 10*3/uL (4.50-10.00)
[2024-12-26] MEDS: diphenhydrAMINE 50 MG/ML 1 ML VIAL IVP STA (04:28)
[2024-12-26 04:43] VITALS: RESP 18
[2024-12-26] MEDS: LIDOCAINE VISCOUS 2% 15 ML CUP PO ONE (04:50)
[2024-12-26 04:51] LABS: ALT 16 U/L (4-34); AST 22 U/L (14-36); African American GFR (CKD) >90 (>60 ml/min/1.73 sqM); Albumin 3.9 g/dL (3.5-5.0); Alkaline Phosphatase 60 U/L (38-126); Anion Gap 10 mmol/L; Blood Urea Nitrogen 25 mg/dL (7-17); Calcium 9.5 mg/dL (8.4-10.2); Carbon Dioxide 21 mmol/L (22-30); Chloride 109 mmol/L (98-107); Glucose 111 mg/dL (74-99); Lipase 168 U/L (23-300); Non-African American GFR(CKD) >90 (>60 ml/min/1.73 sqM); Potassium 3.8 mmol/L (3.5-5.1); Sodium 140 mmol/L (137-145); Total Bilirubin 0.2 mg/dL (0.2-1.3); Total Protein 6.5 g/dL (6.3-8.2)
[2024-12-26] MEDS: FAMOTIDINE 20 MG/2 ML VIAL IV STA (04:51)
[2024-12-26] MEDS: PANTOPRAZOLE 40 MG/10 ML VIAL IVP STA (04:52)
[2024-12-26 05:05] LABS: Appearance,Urine Clear (Clear); Bilirubin,Urine Negative (Negative); Blood,Urine Negative (Negative); Color,Urine Light Yellow; Glucose,Urine (UA) Negative (Negative); Ketones,Urine Negative (Negative); Leukocyte Esterase,Urine Negative (Negative); Nitrite,Urine Negative (Negative); Protein,Urine Negative (Negative); Specific Gravity,Urine 1.031 (1.001-1.035); Urobilinogen,Urine <2.0 mg/dL (<2.0)
--- NOTE | 2024-12-26 05:30 | XR ---
EXAM: XR Chest, 2 Views CLINICAL HISTORY: ITS.REASON XR Reason: chest pain TECHNIQUE: Frontal and lateral views of the chest. COMPARISON: X-ray dated 07/25/2024. FINDINGS: Lungs: Unremarkable. No consolidation. Pleural space: Unremarkable. No pneumothorax. Heart: Unremarkable. No cardiomegaly. Mediastinum: Unremarkable. Normal mediastinal contour. Bones/joints: Unremarkable. No acute fracture. IMPRESSION: Normal chest x-rays.
[2024-12-26 06:09] VITALS: TEMP 98.1
[2024-12-26] MEDS: CALCIUM CARBONATE 500 MG CHEWABLE PO STA (06:41)
[2024-12-26] MEDS: BISMUTH SUBSALICYLATE 4,192 MG/240 ML BOTTLE PO STA (06:44)
[2024-12-26 06:51] VITALS: BP 132/82; PULSE 84
== END 2024-12-26 06:51 | disposition home or self-care (01) ==
LOC: EC 03:45
DX: K29.70 Gastritis, unspecified, without bleeding (principal); F17.290 Nicotine dependence, other tobacco product, uncomplicated; Z91.09 Other allergy status, other than to drugs and biological substances; Z88.8 Allergy status to other drugs, medicaments and biological substances
CPT/HCPCS: 36415; 93005; 80053; 83690; 84484; 85025; 81003; 81025; 71046; 99285; 96374; 96375 ×4; 96361; J1200; J2765; J2405; J2470; J1308